=== PATIENT | female | born 1960 | race Caucasian/White ===

== ENCOUNTER 2016-11-13 11:56 | Outpatient (CLI) | payer MEDICARE, MEDICAID ==
[~2016-11-13] VITALS: Ht 167.6 cm; Wt 80.7 kg
[2016-11-13 12:09] VITALS: BP 163/97
[2016-11-13 12:44] LABS: BASOPHILS % (AUTO) 0 % (0-10); EOSINOPHILS % (AUTO) 0 % (0-10); LYMPHOCYTES # (AUTO) 2.3 X 10^3 (1.0-4.0); LYMPHOCYTES % (AUTO) 25 % (12-44); MEAN CORPUSCULAR HEMOGLOBIN 30 PG (25-34); MEAN CORPUSCULAR HGB CONC 34 G/DL (32-36); MEAN CORPUSCULAR VOLUME 90 FL (80-99); MEAN PLATELET VOLUME 10.7 FL (7.4-10.4); MONOCYTES # (AUTO) 0.5 X 10^3 (0.0-1.0); MONOCYTES % (AUTO) 5 % (0-12); NEUTROPHILS # (AUTO) 6.4 X 10^3 (1.8-7.8); NEUTROPHILS % (AUTO) 70 % (42-75); PLATELET COUNT 271 10^3/uL (130-400); RED BLOOD COUNT 4.44 10^6/uL (4.35-5.85); RED CELL DISTRIBUTION WIDTH 13.9 % (10.0-14.5); WHITE BLOOD COUNT 9.2 10^3/uL (4.3-11.0)
--- NOTE | 2016-11-13 12:52 | Diagnostic Imaging Report ---
PA and lateral views of the chest Indication: Preoperative evaluation Findings: The lungs are clear. The heart size is normal. There is no effusion or pneumothorax The mediastinum and [place] appear unremarkable. Impression: Unremarkable study. Dictated by: Dictated on workstation # [id number]
[2016-11-13 12:57] LABS: INR 0.9 (0.8-1.4); PROTHROMBIN TIME PATIENT 11.4 SEC (12.2-14.7)
[2016-11-13 13:02] LABS: BILIRUBIN,URINE NEGATIVE (NEGATIVE); KETONES,URINE NEGATIVE (NEGATIVE); LEUKOCYTE ESTERASE ,URINE 2+ (NEGATIVE); NITRITE,URINE NEGATIVE (NEGATIVE); PH,URINE 6 (5-9); PROTEIN,URINE 1+ (NEGATIVE); UROBILINOGEN,URINE NORMAL (NORMAL)
[2016-11-13 13:04] LABS: ANION GAP 12 MMOL/L (5-14); BLOOD UREA NITROGEN 14 MG/DL (7-18); BUN/CREATININE RATIO 17; CALCIUM 9.6 MG/DL (8.5-10.1); CARBON DIOXIDE 21 MMOL/L (21-32); CHLORIDE 105 MMOL/L (98-107); CREATININE SERUM 0.82 MG/DL (0.60-1.30); GFR ESTIMATED > 60; GLUCOSE 119 MG/DL (70-105); SODIUM 138 MMOL/L (135-145)
[2016-11-13] MEDS ORDERED: CETI10TA20 PO (13:53)
[2016-11-13] MEDS ORDERED: MULT-1021 PO (13:53)
[2016-11-13] MEDS ORDERED: SERT100T PO (13:53)
[2016-11-13] MEDS ORDERED: OMG1KC PO (13:53)
[2016-11-13] MEDS ORDERED: MELO7.5O PO (13:53)
[2016-11-13] MEDS ORDERED: ROSU40TA PO (13:53)
[2016-11-13] MEDS ORDERED: DICL100G18 TP (13:53)
[2016-11-13] MEDS ORDERED: ASPI-586 PO (13:53)
[2016-11-13] MEDS ORDERED: METO-333 PO (13:53)
== END 2016-11-13 12:50 | disposition home or self-care (01) ==
LOC: PREOP 11:56
PROVIDERS: ATTEND Orthopaedic Surgery
DX: Z01.811 Encounter for preprocedural respiratory examination (principal); Z01.812 Encounter for preprocedural laboratory examination; Z11.2 Encounter for screening for other bacterial diseases; M17.0 Bilateral primary osteoarthritis of knee; R53.83 Other fatigue
CPT/HCPCS: 36415; 71020; 80048; 81000; 85025; 85610; 86850; 86900; 86901; 87081

== ENCOUNTER 2016-11-26 05:53 | Inpatient (IN) | payer MEDICARE, MEDICAID ==
[~2016-11-26] VITALS: Ht 167.6 cm; Wt 80.7 kg
[~2016-11-26 05:53] MED LIST: ASPI-586 PO; CETI10TA20 PO; DICL100G18 TP; MELO7.5O PO; METO-333 PO; MULT-1021 PO; OMG1KC PO; ROSU40TA PO; SERT100T PO
--- OUTSIDE RECORDS SUMMARY | 2016-11-26 05:59 | XMS REPORT | Continuity of Care Document ---
Author Author [facility] Organization [facility] Address Unknown Phone Unavailable Care Team Providers Care Tools Developer Name Role Phone No Pcp, Na PCP Unavailable Source Comments Some departments are not documenting in the electronic medical record. If you do not see the information that you expected, contact Release of Information in the Health Information Management department at [phone] for further assistance in locating additional records.[facility] Active Allergies and Adverse Reactions Allergen Noted Date Severity Reactions Comments Codeine 01/31/2016 Low HEADACHE Current Medications Prescription Sig. Disp. Refills Start End Date Status Date aspirin EC 81 mg tablet Take 81 mg by mouth Active daily. sertraline (ZOLOFT) 100 Take 100 mg by mouth Active mg tablet daily. nitroglycerin (NITROSTAT) Place 0.4 mg under tongue Active 0.4 mg tablet every 5 minutes as needed for Chest Pain. omega 4-bwd-qae-fish oil Take 1 Cap by mouth Active 300-1,000 mg capsule daily. ALPRAZolam (XANAX) 1 mg Take 1 mg by mouth twice Active tablet daily. lidocaine 5 % gel Apply to affected area Active daily. ASCORBIC ACID PO Take by mouth daily. Active Indications: Vitamin C HYDROcodone/acetaminophen Take 1 Tab by mouth every Active (NORCO) 7.5/325 mg tablet 6 hours as needed for Pain MULTIVITAMIN WITH Take by mouth daily. Active MINERALS (MULTIVITAMIN & MINERAL FORMULA PO) cyanocobalamin(+) Take 100 mcg by mouth Active (VITAMIN B-12) 100 mcg daily. tablet metoprolol (LOPRESSOR) 25 Take 25 mg by mouth twice Active mg tablet daily. rosuvastatin (CRESTOR) 40 Take 40 mg by mouth Active mg tablet daily. MISCELLANEOUS MEDICAL Take by mouth daily. Active SUPPLY MISC Active Problems Problem Noted Date Primary localized osteoarthrosis, lower leg 05/22/2016 Coronary artery disease involving [place] coronary artery of [place] heart without angina pectoris Acquired genu varum 01/31/2016 Arthralgia of lower leg 01/31/2016 Social History Tobacco Use Types Packs/Day Years Used Date Never Smoker Smokeless Tobacco: Never Used Tobacco Cessation: Counseling Given: Yes Comments: Alcohol Use Drinks/Week oz/Week Comments No 0 Standard 0.0 drinks or equivalent Last Filed Vital Signs Vital Sign Reading Time Taken Blood Pressure 154/89 05/22/2016 3:36 PM CDT Pulse 87 05/22/2016 3:36 PM CDT Temperature - - Respiratory Rate - - Height 1.676 m (5' 6") 05/22/2016 3:36 PM CDT Weight 79.198 kg (174 lb 9.6 oz) 05/22/2016 3:36 PM CDT Body Mass Index 28.19 05/22/2016 3:36 PM CDT Oxygen Saturation - - Plan of Care Health Maintenance Due Date Last Done Comments Hepatitis C Screening 1958 Physical (Comprehensive) 1965 Exam Pertussis Vaccine 1969 Tetanus Vaccine 1975 Cervical Cancer Screening 1979 Breast Cancer Screening 1998 Colorectal Cancer 2008 Screening Influenza Vaccine 07/11/2016 Results from Last 3 Months Not on file
[2016-11-26] MEDS ORDERED: ceFAZolin 2 GM IV (SDC ONLY) 50 ML ONE (06:23)
[2016-11-26] MEDS ORDERED: GENTAMICIN 40 MG/ML 2 ML INJ SDV ONE (06:37)
[2016-11-26] MEDS ORDERED: CATHETER FLUSH 10 ML SYR IV PRN (06:45)
[2016-11-26] MEDS ORDERED: ceFAZolin 2GM/50 ML DEXTROSE (PREMIX) IV ONE (06:45)
[2016-11-26] MEDS ORDERED: FAMOTIDINE 20MG/2ML IV (PEPCID) IV ONE (06:45)
[2016-11-26] MEDS ORDERED: MIDAZOLAM 2 MG/2 ML (VERSED) VIAL ONE ×2 (06:49→08:00)
[2016-11-26] MEDS ORDERED: ROPIVACAINE 5MG/ML 30ML VIAL ONE (06:49)
[2016-11-26] MEDS ORDERED: NEO/POLY/BAC (NEOSPORIN) OINT 15 GM TUBE ONE (06:50)
[2016-11-26] MEDS: LACTATED RINGERS 1,000 ML IV PRN ×3 (06:52→10:15)
[2016-11-26] MEDS ORDERED: proPOfol 200 MG/20 ML (DIPRIVAN) VIAL IV ONE (06:54)
[2016-11-26] MEDS ORDERED: fentaNYL INJECTION 100 MCG/2 ML AMP ONE ×3 (06:54→08:45)
[2016-11-26] MEDS ORDERED: LACTATED RINGERS 1,000 ML IV ONE ×3 (06:54→09:45)
[2016-11-26] MEDS ORDERED: ROCURONIUM 50 MG/5 ML (ZEMURON) VIAL IV ONE (06:54)
[2016-11-26] MEDS ORDERED: ONDANSETRON 4 MG/2 ML (SDV) Z0FRAN ONE (06:54)
[2016-11-26] MEDS ORDERED: SEVOFLURANE (ULTANE) 15 ML INHAL SOLN ONE ×6 (06:54→10:23)
[2016-11-26] MEDS ORDERED: LIDOCAINE PF 2% 10 ML (XYLOCAINE) AMP ONE (06:54)
[2016-11-26 07:43] VITALS: BP 133/77
[2016-11-26] MEDS ORDERED: TXA MC ONE ×5 (07:45)
[2016-11-26] MEDS ORDERED: INTRA ARTICULAR MC ONE ×5 (07:45)
[2016-11-26] MEDS ORDERED: diphenhydrAMINE 50 MG/ML INJ (BENADRYL) IV PRN (08:00)
[2016-11-26] MEDS ORDERED: PROMETHAZINE INJ 25 MG/ML (PHENERGAN) AMP IVP PRN ×2 (08:00)
[2016-11-26] MEDS ORDERED: BISACODYL 10 MG SUPP (DULCOLAX) PR PRN (08:00)
[2016-11-26] MEDS ORDERED: ceFAZolin INJECTION 2,000 MG in NORMAL SALINE (BAXTER MINI) 50 ML IV SCH (08:00)
[2016-11-26] MEDS ORDERED: D5 1/2 NS 1000 ML IV SOLUTION 1,000 ML IV SCH (08:00)
--- NOTE | 2016-11-26 08:07 | Progress Note-Pre Operative ---
Pre-Operative Progress Note H&P Reviewed The H&P was reviewed, patient examined and no changes noted. Date H&P Reviewed: Nov 26, 2016 Time H&P Reviewed: 08:00 Pre-Operative Diagnosis: Primary Osteoarthritis Left Knee OSMAR MARTINES APRN Nov 26, 2016 8:07 am
[2016-11-26] MEDS ORDERED: DEXAMETHASONE PF 10 MG/ML (DECADRON) VIAL ONE (09:45)
[2016-11-26] MEDS ORDERED: LABETALOL HCL 20 MG/4 ML VIAL ONE (09:45)
[2016-11-26] MEDS: morphine INJ 10 MG/ML 1ML (SYR OR VIAL) IV PRN ×2 (11:00→11:08)
[2016-11-26] MEDS ORDERED: HYDROmorphone (DILAUDID) 2 MG/ML VIAL IV PRN (11:00)
[2016-11-26] MEDS ORDERED: ONDANSETRON 4 MG/2 ML (SDV) Z0FRAN IV ONE (11:00)
[2016-11-26] MEDS ORDERED: fentaNYL INJECTION 100 MCG/2 ML AMP IV PRN (11:00)
--- NOTE | 2016-11-26 11:27 | Diagnostic Imaging Report ---
INDICATION: Osteoarthritis. FINDINGS: There are postsurgical changes of a total knee arthroplasty. Alignment is normal. Surgical drains remain in place. No fracture or loosening of the installed hardware is identified. IMPRESSION: Postsurgical changes of knee arthroplasty, as described above. Dictated by: Dictated on workstation # [id number]
[2016-11-26 11:45] VITALS: BP 135/84
[2016-11-26] MEDS: morphine INJ 10 MG/ML 1ML (SYR OR VIAL) IVP PRN ×2 (12:08→13:52)
[2016-11-26] MEDS: HYDROcodone/APAP 10 MG/325 MG (LORTAB) TAB PO PRN ×3 (12:08→22:55)
--- NOTE | 2016-11-26 13:05 | Progress Note-Post Operative ---
Post-Operative Progess Note Curriculum Consultant Moses Martines, ILAC, OFFICE ASSOCIATE Pre-Operative Diagnosis Primary Osteoarthritis Left Knee Post-Operative Diagnosis same Post-Op Procedure Note Date of Procedure: Nov 26, 2016 Name of Procedure: L TKA Procedure Note/Findings 31 thin patella 67 Tibia 13mm 65 femur Anesthesia Type general with femoral block Estimated blood loss (mL): 200 MOSES MARTINES APRN Nov 26, 2016 1:05 pm
[2016-11-26] MEDS: ASPIRIN E.C. 325 MG (ECOTRIN) TABLET PO SCH (13:38)
[2016-11-26] MEDS: ENOXAPARIN 40 MG/0.4 ML (LOVENOX) SYR SC SCH (13:39)
[2016-11-26] MEDS: KETOROLAC 30 MG/ML VIAL IVP PRN (13:52)
[2016-11-26] MEDS: D5 1/2 NS 1000 ML IV SOLUTION 1,000 ML IV SCH (13:58)
[2016-11-26] MEDS ORDERED: ceFAZolin 2GM/50 ML DEXTROSE (PREMIX) IV SCH (14:00)
[2016-11-26] MEDS: [UNRECOGNIZED DRUG - OTHER] IV SCH ×4 (14:34→22:46)
[2016-11-26] MEDS: CEFAZOLIN IV SCH ×4 (14:34→22:46)
[2016-11-26] MEDS ORDERED: MUPI22OI2 (14:39)
[2016-11-26] MEDS ORDERED: FLU TRIvalent (5 YOA+) 2016-17 (AFLURIA) 0.5 ML IM ONE (15:15)
[2016-11-26 17:35] VITALS: BP 110/71
[2016-11-26] MEDS: ONDANSETRON 4 MG/2 ML (SDV) Z0FRAN IVP PRN (19:37)
[2016-11-26] MEDS: meTOprolol TARTRATE 25 MG (LOPRESSOR) TABLET PO SCH (20:04)
[2016-11-26 20:20] VITALS: BP 103/67
[2016-11-27] VITALS: BP 123/62
[2016-11-27] MEDS: ONDANSETRON 4 MG/2 ML (SDV) Z0FRAN IVP PRN (02:23)
[2016-11-27] MEDS: D5 1/2 NS 1000 ML IV SOLUTION 1,000 ML IV SCH ×2 (02:30→03:40)
[2016-11-27] MEDS: HYDROcodone/APAP 10 MG/325 MG (LORTAB) TAB PO PRN ×4 (03:36→23:27)
[2016-11-27 04:00] VITALS: BP 118/60
[2016-11-27 05:04] LABS: MEAN PLATELET VOLUME 10.2 FL (7.4-10.4); RED BLOOD COUNT 3.39 10^6/uL (4.35-5.85); RED CELL DISTRIBUTION WIDTH 13.9 % (10.0-14.5); WHITE BLOOD COUNT 14.1 10^3/uL (4.3-11.0)
[2016-11-27 05:35] LABS: ANION GAP 10 MMOL/L (5-14); BLOOD UREA NITROGEN 17 MG/DL (7-18); BUN/CREATININE RATIO 23; CALCIUM 8.8 MG/DL (8.5-10.1); CARBON DIOXIDE 24 MMOL/L (21-32); CHLORIDE 104 MMOL/L (98-107); CREATININE SERUM 0.73 MG/DL (0.60-1.30); GFR ESTIMATED > 60; GLUCOSE 111 MG/DL (70-105); POTASSIUM 4.3 MMOL/L (3.6-5.0); SODIUM 138 MMOL/L (135-145)
[2016-11-27] MEDS: KETOROLAC 30 MG/ML VIAL IVP PRN (06:36)
[2016-11-27 08:00] VITALS: BP 126/73
--- NOTE | 2016-11-27 08:10 | Progress Note (SOAP) ---
Subjective Subjective/Events-last exam POD #1, s/p left TKA, she is doing well, no complaints, pain controlled, happy with progress Objective Exam Vital Signs Date Time Temp Pulse Resp B/P Pulse Ox O2 Delivery O2 Flow Rate FiO2 11/27/16 04:00 98.9 80 18 118/60 95 Room Air 11/27/16 00:00 98.7 92 14 123/62 96 Room Air 11/26/16 20:20 98.8 104 20 103/67 96 Room Air 11/26/16 17:35 98.0 104 20 110/71 92 Room Air 11/26/16 13:56 99 Nasal Cannula 3.00 11/26/16 11:45 98.7 100 16 135/84 94 Nasal Cannula 3.00 I & O 11/27/16 06:59 Intake Total 4910 ml Output Total 6245 ml Balance -1335 ml Capillary Refill : General Appearance: No Apparent Distress Extremity: Normal Capillary Refill Normal Inspection No Calf Tenderness Neurologic/Psychiatric: Alert Oriented x3 No Motor/Sensory Deficits Normal Mood/Affect Skin: Normal Color Warm/Dry (dressing left knee CDI) Results Lab Laboratory Tests 11/27/16 04:04: Anion Gap 10, BUN/Creatinine Ratio 23, Blood Urea Nitrogen 17, Calcium Level 8.8 , Carbon Dioxide Level 24, Chloride Level 104, Creatinine 0.73, Estimat Glomerular Filtration Rate > 60, Glucose Level 111H, Potassium Level 4.3, Sodium Level 138 11/27/16 04:54: Hematocrit 32L, Hemoglobin 10.3L, Mean Corpuscular Hemoglobin 30, Mean Corpuscular Hemoglobin Concent 33, Mean Corpuscular Volume 93, Mean Platelet Volume 10.2, Platelet Count 243, Red Blood Count 3.39L, Red Cell Distribution Width 13.9, White Blood Count 14.1H Assessment/Plan Assessment/Plan Assess & Plan/Chief Complaint A: S/p left TKA P: Cont current treatment, start physical therapy today and CPM, plan to DC to home tomorrow or friday with home healthcare physical therapy Diagnosis/Problems: Clinical Quality Measures DVT/VTE Risk/Contraindication: Risk Factor Score Per Nursin RFS Level Per Nursing on Admit: 4+=Very High OSMAR MARTINES APRN Nov 27, 2016 8:09 am
[2016-11-27] MEDS: SERTRALINE 100 MG (ZOLOFT) TAB PO SCH (08:46)
[2016-11-27] MEDS: meTOprolol TARTRATE 25 MG (LOPRESSOR) TABLET PO SCH ×2 (08:46→20:00)
[2016-11-27] MEDS: ENOXAPARIN 40 MG/0.4 ML (LOVENOX) SYR SC SCH (08:46)
[2016-11-27] MEDS: ASPIRIN E.C. 325 MG (ECOTRIN) TABLET PO SCH (08:47)
[2016-11-27] MEDS: SENNA W/DOCUSATE (SENOKOT S) TABLET PO SCH ×2 (08:47→20:00)
--- NOTE | 2016-11-27 10:46 | Anesthesia-General Post-Op ---
General Patient Condition Mental Status/LOC: Same as Preop Cardiovascular: Satisfactory Nausea/Vomiting: Absent Respiratory: Satisfactory Pain: Controlled Complications: Absent Post Op Complications Complications None Follow Up Care/Instructions Patient Instructions None needed. Anesthesia/Patient Condition Patient Condition Patient is doing well, no complaints, stable vital signs, no apparent adverse anesthesia problems. No complications reported per nursing. PRITI NICHOLS CRNA Nov 27, 2016 10:46
--- NOTE | 2016-11-27 10:50 | Physical Therapy Evaluation ---
PT Evaluation-General Medical Diagnosis Admission Date Nov 26, 2016 at 05:53 Medical Diagnosis: OA left knee Onset Date: Nov 26, 2016 Therapy Diagnosis Therapy Diagnosis: weakness; abn gait Height/Weight Height (Feet): 5 Height (Inches): 6.00 Weight (Pounds): 178 Weight (Ounces): 0.0 Precautions Precautions/Isolations: Standard Precautions Weight Bear Status Weight Bearing Restriction: Weight Bearing/Tolerated Location Restriction: L LE Referral Physician: Jennifer Reason for Referral: Evaluation/Treatment Medical History Pertinent Medical History: OA Additional Medical History None noted in chart at this time. Current History Elective left TKA. Reviewed History: Yes Social History Home: Single Level Current Living Status: Other Family (son) Entry Into Home: Level Entry Prior/Core FIM Prior Level of Function Functional [place] Measure 0=Not Assessed/NA 4=Minimal Assistance 1=Total Assistance 5=Supervision or Setup 2=Maximal Assistance 6=Modified [place] 3=Moderate Assistance 7=Complete [place] Bed Mobility: 7 Transfers (B,C,W/C) (FIM): 7 Gait: 7 indep at home with but knee pain. PT Evaluation-Current Subjective Pt reports she is on disability due to knee OA. Agrees to PT. Reports she feels good. Pain Numeric Pain Scale: 2 Location: Left Location Body Site: Knee Pain Description: Ache (sore) Pt/Family Goals Pt would like to discharge home tomorrow or friday Objective Patient Orientation: Person, Place, Time, Situation Problem Solving: Fair ROM/Strength ROM Lower Extremities Righ LE WFL; left LE is WFL except knee is 0-5-60 degrees Strenght Lower Extremities Right LE is WFL; left LE is grossly 4-/5 throughout. Integumentary/Posture Integumentary intact Bowel Incontinence: No Bladder Incontinence: No Posture normal, symmetrical Neuromuscular (Tone, Coordination, Reflexes) intact and functional Sensory Vision: Functional Hearing: Functional Hand Dominance: Right Sensation Right Lower Extremit: Intact Sensation Left Lower Extremity: Intact Transfers Functional [place] Measure 0=Not Assessed/NA 4=Minimal Assistance 1=Total Assistance 5=Supervision or Setup 2=Maximal Assistance 6=Modified [place] 3=Moderate Assistance 7=Complete [place] Transfers (B, C, W/C) (FIM): 5 Supine to/from Sit: 5 Sit to/from Stand: 5 SBA with all functional mobility. Pt got up and stood without assist but with some disregard for safety. Gait Mode of Locomotion: Walk Anticipated Mode of Locomotion: Walk Gait (FIM): 5 Distance (FIM): 3=150 ft Gait Assistive Device: FWW Comments/Gait Description Tends to walk on her toes on the left and keep knee in flexed position. Gait is antalgic due to gait pattern. Walks fast and tends to lift walker up. Balance Sitting Static: Good Sitting Dynamic: Good Standing Static: Fair Standing Dynamic: Fair Treatment left LE ther ex for AP, QS, Heel slides and SAQ all x 10 each; CPM applied 0-64 degrees. Educated on use of CPM . Assessment/Needs Post elective TKR with SBA for functional mobility with slight safety concerns. Pt is moving very well today and with very little pain. She will benefit from skilled PT for functional mobility and safety as well as ROM and strengthening. Rehab Potential: Good PT Patient Registrar Goals Shelter Goals PT Shelter Goals Time Frame: Dec 02, 2016 Transfers (B,C,W/C) (FIM): 6 Gait (FIM): 6 Gait Assistive Device: FWW Stairs (FIM): 5 PT Plan Problem List Problem List: Activity Tolerance, Functional Strength, Safety, Balance, Gait, Transfer, Bed Mobility, ROM Treatment/Plan Treatment Plan: Continue Plan of Care Treatment Plan: Bed Mobility, Education, Functional Activity Jasmeet, Functional Strength, Gait, Safety, Therapeutic Exercise, Transfers Treatment Duration: Dec 02, 2016 # of days/week 5-6 Visits Per Week: 11 Pt/Family Agrees w/Plan: Yes Safety Risks/Education Patient Education: Transfer Techniques, Safety Issues Teaching Recipient: Patient Teaching Methods: Discussion Response to Teaching: Verbalize Understanding Discharge Recommendations Plan TKA protocol Therapy D/C Recommendations: Physical Therapy Home Care Time/GCodes Time In: 930 Time Out: 1005 Total Billed Treatment Time: 35 Total Billed Treatment visit EVLow 15 FA 20 ANNETTE WILLIAMSON PT Nov 27, 2016 10:50
--- NOTE | 2016-11-27 11:56 | OPERATIVE REPORT ---
PROCEDURE PHYSICIAN: AUSTEN FRANCOIS DATE OF PROCEDURE: 11/26/2016 PREOPERATIVE DIAGNOSIS: Primary osteoarthritis, left knee. POSTOPERATIVE DIAGNOSIS: Primary osteoarthritis, left knee. PROCEDURE: Left total knee arthroplasty. SURGEON: Jennifer STEELE ASSIST: LUIGI Reyes custody assistant duties: Moses Robledo pharmacy technician assistant was utilized throughout the entire procedure for soft tissue retraction, placement of implants, wound closure and patient transfer. ANESTHESIA: General. INDICATIONS: The patient is a 56-year-old female seen with chief complaint of progressive pain in the left and right knee. The patient developed a varus deformity that was no longer responding to conservative treatment. The patient was taken to surgery where a total knee arthroplasty was performed on the left without complication utilizing the Biomet Vidappguard total knee system with a 62.5 mm press-fit femoral component, a 67 mm fixed I-beam tibial baseplate cemented into position with a 31 mm three-pronged all polyethylene cemented thin patella. A 13 mm anterior stabilized tibial bearing implant was utilized. Palacos bone cement with gentamicin was utilized. PROCEDURE IN DETAIL: The patient was transferred to the operating room, placed supine upon the operating table and general inhalation anesthetic was administered. A well-padded pneumatic tourniquet was placed about the upper aspect of the left thigh. A ChloraPrep and sterile drape of the left lower extremity was performed. The left leg was elevated, exsanguinated, and the tourniquet was inflated to 300 mmHg pressure. An anterior longitudinal midline incision was made over the anterior surface of the left knee. The incision was deepened through medial parapatellar incision. The patella was subluxed laterally. Hypertrophic osteophyte formation from the distal femur was reamed with a bone rongeur. A ferry pilot hole then drilled in the distal femur and intramedullary javad was inserted utilizing a 6 degrees valgus cutting angle, a distal femoral cutting guide was assembled and distal femoral osteotomy was completed. The distal femur was sized to a 62.5 mm femoral component. A four-way cutting guide was assembled. Anterior, posterior and chamfer cuts of the distal femur were made. The tibia was then subluxed anteriorly. Remnants of the medial lateral menisci were excised. A ferry pilot hole then drilled in the proximal tibia and intramedullary javad was inserted measuring off the proximal medial tibia. A proximal tibial cutting guide was assembled and a proximal tibial osteotomy was completed. An additional soft tissue dissection was performed over the proximal medial tibia. The patient's knee demonstrated incomplete extension with a 10 mm spacer and therefore the cutting guide was reassembled anteriorly and additional proximal tibia was removed through the cutting guide. The knee could then be fully extended. In flexion the patient demonstrated to have persistent instability therefore, the cutting guide was reassembled. An additional millimeter bone was removed from the distal femur. The four-way cutting guide was assembled. Additional bone was resected from the chamfer cuts. The knee was then flexed and extended with the provisional spacer and stability was noted in both in flexion and extension. Osteophytes were removed from the rim of the patella. The patella was sized to a 31 mm component. The posterior aspect of the patella was resected through a cutting guide and drilled through a drill guide. Provisional components were inserted. The knee was cycled through a range of motion. Rotation of the tibial component was noted marked on the proximal tibia. The proximal tibia was then broached to accept the I-beam stem portion of the component. The bony surfaces were irrigated extensively with normal saline solution. Palacos bone cement was then mixed in a mixing vacuum container; using a cement gun the cement was pressurized in the proximal tibia. The tibial component was cemented in place. The femoral component was press-fit in place. The knee was taken into full extension with the provisional tibial bearing implant. The patellar component was cemented into place and held in place with a clamp. Excessive cement was removed. The cement was allowed to set. The provisional tibial bearing implant was removed. Excessive cement was removed from the proximal tibia. The knee was additionally irrigated with normal saline solution. The 13 mm anterior stabilized tibial bearing implant was then inserted and locked anteriorly with a locking bar. The knee was cycled through a range of motion with full extension obtained and no instability on mid range flexion and full flexion of the knee on drawer testing. The tourniquet was released. Hemostasis was obtained with electrocautery. The knee was placed in 98 degrees of flexion. The medial retinaculum was closed with multiple interrupted [id number] sutures of number 1 Vicryl reinforced with a running suture of number 1 Strata fix. The subcutaneous tissues were closed in layers with 0 and 2-0 Vicryl suture. The knee was infiltrated with combination of ropivacaine, Marcaine, Toradol and tranexamic acid. The skin was closed with stainless steel glenn. An Adaptic Neosporin bulky dressing was placed about the left knee. The patient was awakened and was transported postop recovery with anesthesia personnel present in satisfactory condition. Job ID: [id number] Dictated Date: 11/26/2016 14:26:42 Java Developer With Security Clearance Date: 11/27/2016 11:46:18 / le
[2016-11-27 12:00] VITALS: BP 137/75
--- NOTE | 2016-11-27 13:46 | Physical Therapy Daily Note ---
PT Daily Note-Current Subjective PT reports 6/10 pain in (L) knee. Pt states "Yesterday I was bouncing around here but today I think it is catching up to me." Pt reports she is tired today. Mental Status Patient Orientation: Person, Place, Situation Transfers Functional [place] Measure 0=Not Assessed/NA 4=Minimal Assistance 1=Total Assistance 5=Supervision or Setup 2=Maximal Assistance 6=Modified [place] 3=Moderate Assistance 7=Complete IndependenceIRFPAI Quality Coding Scale 6 Independent with activity with or without an assistive device 5 Patient requires set up or clean up by helper. Patient completes activity by themselves 4 Supervision or touching assist (CGA). [place] provide cues , steadying assist 3 The helper provides less than half the effort to complete the activity 2 The helper provides more than half the effort to complete the activity 1 Dependent. The helper does all the effort to complete an activity 7 Patient refused to complete or attempt activity 9 The patient did not perform the activity before the current illness or injury 88 Not attempted due to Medical conditions or safety concerns Pt performs transfers in/out of bed and uses BR (toilet transfers) with ease, no Assist needed. Pt demonstrating mod (I) with functional mobility. Gait Training Gait Assistive Device: FWW Pt amb with FWW and SBA, good speed. Pt ambulates with knee slightly flexed weight on toe. Pt able to improve gait pattern with vc's. Exercises Supine Ex: LE Protocol Supine Reps: 20 Treatments Pt seen for strengthening, gait training and CPM. CPM 0-64deg at this time (pt limit). Assessment Current Status: Good Progress Pt demonstrates excellent functional mobility. Pt demonstrates (I) SLR. Knee flexion and ext limited by pain. Pt educated on correct positioning and gait pattern and verbalized understanding. Pt back to bed with CPM and cryotherapy in place. Pt with call light in reach and all needs met. PT Short Term Goals Short Term Goals Time Frame: Nov 27, 2016 PT Final Coat Sprayer Goals Final Coat Sprayer Goals PT Senior Living Goals Time Frame: Dec 02, 2016 Transfers (B,C,W/C) (FIM): 6 Gait (FIM): 6 Gait Assistive Device: FWW Stairs (FIM): 5 PT Plan Treatment/Plan Treatment Plan: Continue Plan of Care Treatment Plan: Bed Mobility, Education, Functional Activity Jasmeet, Functional Strength, Gait, Safety, Therapeutic Exercise, Transfers Treatment Duration: Dec 02, 2016 Visits Per Week: 11 Time/GCodes Time In: 1315 Time Out: 1340 Total Billed Treatment Time: 25 Total Billed Treatment 1,gait x 10min, ther ex 15 min JOVANA BUSCH CPTA Nov 27, 2016 13:46
[2016-11-27] MEDS: morphine INJ 4 MG/ML 1 ML (VIAL/SYRINGE) IV PRN ×2 (14:16→20:01)
--- NOTE | 2016-11-27 14:22 | Occ Therapy Progress Note ---
Therapy Progress Note OT order received. Chart reviewed. Pt. in bed with CPM on. States that she feels great. Has no pain. States that she dressed herself already, and has been taking self to bathroom. Pt. states that she has to use toilet while OT in room. Pt. able to remove her ice, SCDs, and remove leg off CPM. Ambulated to bathroom and transferred with no difficulty. Spoke with nursing. States that she has been up ad yolanda in room. No deficits noted. No OT needs at this time. 1, visit discharge from OT services 1420 KIRA MATOS OT Nov 27, 2016 14:22
[2016-11-27 16:45] VITALS: BP 147/73
[2016-11-27 20:00] VITALS: BP 136/74
[2016-11-28] VITALS: BP 135/80
[2016-11-28] MEDS: HYDROcodone/APAP 10 MG/325 MG (LORTAB) TAB PO PRN ×2 (03:59→08:39)
[2016-11-28] MEDS: morphine INJ 4 MG/ML 1 ML (VIAL/SYRINGE) IV PRN (05:49)
[2016-11-28 06:02] LABS: MEAN PLATELET VOLUME 10.5 FL (7.4-10.4); RED BLOOD COUNT 3.2 10^6/uL (4.35-5.85); RED CELL DISTRIBUTION WIDTH 13.7 % (10.0-14.5); WHITE BLOOD COUNT 10.8 10^3/uL (4.3-11.0)
[2016-11-28 06:28] LABS: ANION GAP 11 MMOL/L (5-14); BLOOD UREA NITROGEN 17 MG/DL (7-18); BUN/CREATININE RATIO 25; CARBON DIOXIDE 23 MMOL/L (21-32); CHLORIDE 103 MMOL/L (98-107); CREATININE SERUM 0.69 MG/DL (0.60-1.30); GFR ESTIMATED > 60; GLUCOSE 108 MG/DL (70-105); POTASSIUM 4.1 MMOL/L (3.6-5.0); SODIUM 137 MMOL/L (135-145)
--- NOTE | 2016-11-28 07:04 | Progress Note (SOAP) ---
Subjective Subjective/Events-last exam s/p left TKA POD #2, no complaints, pain controlled, she is happy with progress and feels she is ready for DC to home. Objective Exam Vital Signs Date Time Temp Pulse Resp B/P Pulse Ox O2 Delivery O2 Flow Rate FiO2 11/28/16 00:00 99.8 84 20 135/80 92 Room Air 11/27/16 20:00 99.7 90 20 136/74 94 Room Air 11/27/16 20:00 Room Air 11/27/16 16:45 99.0 86 20 147/73 94 Room Air 11/27/16 12:00 99.1 79 20 137/75 92 Room Air 11/27/16 09:00 Room Air 11/27/16 08:00 98.2 82 126/73 98 Room Air I & O 11/28/16 07:00 Intake Total 1790 ml Output Total 850 ml Balance 940 ml Capillary Refill : Less Than 3 Seconds General Appearance: No Apparent Distress Respiratory: No Accessory Muscle Use Cardiovascular: Normal Peripheral Pulses Gastrointestinal: non tender soft Extremity: Normal Capillary Refill Normal Inspection Non Tender No Calf Tenderness No Pedal Edema Neurologic/Psychiatric: Alert Oriented x3 No Motor/Sensory Deficits Normal Mood/Affect Skin: Normal Color Warm/Dry (Dressing left TKA is CDI) Results Lab Laboratory Tests 11/28/16 05:30: Anion Gap 11, BUN/Creatinine Ratio 25, Blood Urea Nitrogen 17, Calcium Level 9.0 , Carbon Dioxide Level 23, Chloride Level 103, Creatinine 0.69, Estimat Glomerular Filtration Rate > 60, Glucose Level 108H, Hematocrit 30L, Hemoglobin 9.7L, Mean Corpuscular Hemoglobin 30, Mean Corpuscular Hemoglobin Concent 33, Mean Corpuscular Volume 93, Mean Platelet Volume 10.5H, Platelet Count 213, Potassium Level 4.1, Red Blood Count 3.20L, Red Cell Distribution Width 13.7, Sodium Level 137, White Blood Count 10.8 Assessment/Plan Assessment/Plan Assess & Plan/Chief Complaint A: S/p left TKA P: DC to home with HHC today Diagnosis/Problems: Clinical Quality Measures DVT/VTE Risk/Contraindication: Risk Factor Score Per Nursin RFS Level Per Nursing on Admit: 4+=Very High OSMAR MARTINES APRN Nov 28, 2016 7:04 am
--- NOTE | 2016-11-28 07:14 | Discharge Inst-Home Health ---
Discharge Inst-to Home Health Patient Instructions Patient Instructions/FollowUp: Refer to Dr. Jennifer ISAAC instructions for TKA Patient Problems: Primary OA left knee S/P left TKA Goal: independence with ADLs [place] DISCHARGE ORDERS Allergies: Coded Allergies: codeine (Verified Allergy, Unknown, headache, 11/13/16) Height (Feet): 5 Height (Inches): 6.00 Weight (Pounds): 178 Weight (Ounces): 0.0 Home Health Need/Face to Face Reason Pt Homebound unable to ambulate without assistive device, unable to ambulate over 200ft, unable to drive I Have Seen Pt [id number]: Yes Date of Face to Face: Nov 28, 2016 Discharged To: Home Diagnosis/Conditions HH Order: Primary OA left knee S/P left TKA Physical therapy 5x/week x 2 weeks Nursing to remove glenn and apply steri strips on POD #10 Consult/Follow Up/New Order *I certify that based on my findings, the following services are medically necessary Home Health Services: Services: Nursing Services, Physical Therapy-Evaluate & Treat My clinical findings support the need for the above services; see Diagnosis. [facility] Orders physical therapy 5x/week x 2 weeks to assist with ROM, gait and strengthening s/ p left TKA nursing to remove glenn and apply steri strips on POD 10 daily island dressing changes continue mikey hose continue cpm continue WBAT with walker Clinical Findings s/p left TKA Other Equipment Needed: front wheeled walker Dicharge Diet: No Restrictions Daily Activity as Tolerated: Yes Discharge Medications: New, Converted, or Re-newed RX: RX on Chart I certify that this patient is under my care and that I, a nurse practitioner or a physician; a parking assistant working with me, had a face to face encounter that - meets the physician face to face encounter requirements with this patient as dated. OSMAR MARTINES APRN Nov 28, 2016 7:14 am
[2016-11-28] MEDS ORDERED: ASPI325T32 PO (07:17)
[2016-11-28] MEDS ORDERED: HYDR-3820 PO (07:17)
[2016-11-28] MEDS ORDERED: SENN-20 PO (07:17)
[2016-11-28 08:00] VITALS: BP 120/65
[2016-11-28] MEDS: ASPIRIN E.C. 325 MG (ECOTRIN) TABLET PO SCH (08:38)
[2016-11-28] MEDS: SENNA W/DOCUSATE (SENOKOT S) TABLET PO SCH (08:39)
[2016-11-28] MEDS: ENOXAPARIN 40 MG/0.4 ML (LOVENOX) SYR SC SCH (08:39)
[2016-11-28] MEDS: meTOprolol TARTRATE 25 MG (LOPRESSOR) TABLET PO SCH (08:39)
[2016-11-28] MEDS: SERTRALINE 100 MG (ZOLOFT) TAB PO SCH (08:39)
--- NOTE | 2016-11-28 13:28 | Physical Therapy Progress Note ---
Therapy Progress Note Pt refused tx this morning due to discharging in a little while. PT asked if pt needed anything or needed education on what she needs when she goes home. Pt reports will use polar pack, elevation and NSAID when needed as well as she will have her son to assist at home. Pt was left with all needs met at end of tx. 1 visit ANAYELI GONZALEZ PTA Nov 28, 2016 13:28
--- NOTE | 2016-11-29 09:51 | DISCHARGE SUMMARY ---
DATE OF ADMISSION: 11/26/2016 DATE OF DISCHARGE: 11/28/2016 SUPERVISING PHYSICIAN: Dr. Ajith Rodriguez D.O. ADMITTING DIAGNOSIS: Primary osteoarthritis, left knee. DISCHARGE DIAGNOSES: 1. Primary osteoarthritis, left knee. 2. Status post left total knee arthroplasty. PROCEDURES: A left total knee arthroplasty on 11/26/2016. HISTORY AND HOSPITAL COURSE: The patient was seen in the clinic setting and failed conservative treatment for primary osteoarthritis of the left knee. On the date of admission the patient was taken to the operating room where a left total knee arthroplasty was performed under general anesthesia without complication. Postoperatively, the patient was maintained on deep vein thrombosis prophylaxis as well as IV antibiotic prophylaxis. On postoperative day number 1, the patient was doing well. She had no complaints or concerns. Her vital signs were stable and she was afebrile. Her exam was unremarkable regarding her left lower extremity. The patient's labs were all stable with hemoglobin of 10.3. The patient's dressing changes, as well as physical therapy was initiated on postop day 1. On postop day 2, the patient was once again doing very well. She had ambulated over 200 feet with physical therapy and needed only minimal assistance. She was using a walker. Her pain was controlled with oral pain medication at that time. The patient was eating and drinking well. She has not had any fever. Her vital signs were stable. On examination the patient's left lower extremity was neurovascularly intact. She had a 2+ pedal pulse. She had a negative Homans sign. The dressing about the left knee was clean, dry and intact. The patient's hemoglobin was stable at 9.7. The patient was discharged to home on postoperative day number 2 with home health care. Discharge instructions were reviewed with the patient by myself as well as nursing staff and she verbalized understanding. She was also given instructions in the printed format. DISPOSITION: Discharged to home with home health care. DISCHARGE INSTRUCTIONS: 1. Home health care physical therapy 5 times a week for 2 weeks to assist with ambulation and treat range of motion. 2. Home health care nursing to remove the glenn and apply Steri-Strips in 10 days. 3. She is going to continue weight-bearing as tolerated using a walker for assistance. 4. She is going to continue the CPM machine. 5. She is going to continue the MEHDI hose. 6. She is going to continue with the Polar Care unit. 7. She may remove her dressing. She may shower washing directly over the incision. She is then to replace with a new [place] dressing daily. 8. The patient is going to continue her current home medication. 9. The patient is going to resume her regular diet. DISCHARGE PRESCRIPTIONS: 1. Aspirin 325 mg enteric-coated 1 p.o. daily number 60 with 0 refills. 2. [place] 10/325, 1 p.o. q.4-6 h. p.r.n. pain, number 90 with 0 refills. 3. Senokot 1 p.o. b.i.d. number 60 with 0 refills. Job ID: [id number] Dictated Date: 11/28/2016 07:26:00 Regional Construction Manager Date: 11/29/2016 09:43:29/barrera
== END 2016-11-28 11:24 | disposition home health service (06) | DRG 470 ==
LOC: SURGICAL 05:53 → SURG 05:54 → 4TH 12:17
PROVIDERS: ADMIT Orthopaedic Surgery; ATTEND Orthopaedic Surgery
PROC: 0SRD0J9 Replacement of Left Knee Joint with Synthetic Substitute, Cemented, Open Approach (ICD-10-PCS; principal; 2016-11-26 08:02)
DX: M17.12 Unilateral primary osteoarthritis, left knee (principal); F41.9 Anxiety disorder, unspecified; F32.9 Major depressive disorder, single episode, unspecified; F17.210 Nicotine dependence, cigarettes, uncomplicated; I25.2 Old myocardial infarction
CPT/HCPCS: 36415; 73560; 80048; 85027; 94664; 94760

== ENCOUNTER 2017-01-09 10:41 | Outpatient (RCR) | payer MEDICARE, MEDICAID ==
--- OUTSIDE RECORDS SUMMARY | 2016-12-13 09:51 | XMS REPORT | Continuity of Care Document ---
Author Author [facility] Organization [facility] Address Unknown Phone Unavailable Care Team Providers Care Tetryl Blender Operator Name Role Phone No Pcp, Na PCP Unavailable Source Comments Some departments are not documenting in the electronic medical record. If you do not see the information that you expected, contact Release of Information in the Health Information Management department at [phone] for further assistance in locating additional records.[facility] Active Allergies and Adverse Reactions Allergen [...] minutes as needed for Chest Pain. 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
[~2017-01-09 10:41] MED LIST changes: +ASPI325T32 PO; +HYDR-3820 PO; +MUPI22OI2; +SENN-20 PO
== END 2017-01-22 14:37 | disposition home or self-care (01) ==
PROVIDERS: ATTEND Orthopaedic Surgery
DX: Z47.1 Aftercare following joint replacement surgery (principal); Z96.652 Presence of left artificial knee joint

== ENCOUNTER 2017-08-16 | Emergency (ER) | payer MEDICARE, MEDICAID ==
[~2017-08-16] VITALS: Ht 167.6 cm; Wt 80.7 kg
[2017-08-16 00:08] VITALS: BP 156/94
--- OUTSIDE RECORDS SUMMARY | 2017-08-16 00:08 | XMS REPORT | Clinical Summary ---
Author Author [facility] Organization [facility] Address Unknown Phone Unavailable Care Team Providers Care Cupola Operator Insulation Name Role Phone PCP Unavailable Source Comments Some departments are not documenting in the electronic medical record. If you do not see the information that you expected, contact Release of Information in the Health Information Management department at [phone] for further assistance in locating additional records.[facility] Allergies Active Allergy Reactions Severity Noted Date Comments Codeine HEADACHE Low 01/31/2016 Current Medications Prescription Sig. Disp. Refills Start End Date Status Date aspirin EC 81 mg tablet Take 81 mg by mouth Active daily. sertraline (ZOLOFT) 100 Take 100 mg by mouth Active mg tablet daily. nitroglycerin (NITROSTAT) Place 0.4 mg under tongue Active 0.4 mg tablet every 5 minutes as needed for Chest Pain. omega 5-bbs-soi-fish oil Take 1 Cap by mouth Active 300-1,000 mg capsule daily. ALPRAZolam (XANAX) 1 mg Take 1 mg by mouth twice Active tablet daily. lidocaine 5 % gel Apply to affected area Active daily. ASCORBIC ACID Take by mouth daily. Active POIndications: Vitamin C Indications: Vitamin C HYDROcodone/acetaminophen Take 1 Tab [...] lower leg 05/22/2016 Coronary artery disease involving [place] coronary artery of [place] heart 03/ without angina pectoris Acquired genu varum 01/31/2016 Arthralgia of lower leg 01/31/2016 Social History Tobacco Use Types Packs/Day Years Used Date Never Smoker Smokeless Tobacco: Never Used Tobacco Cessation: Counseling Given: Yes Alcohol Use Drinks/Week oz/Week Comments No 0 Standard 0.0 drinks or equivalent Sex Assigned at Date Recorded Not on file Last Filed Vital Signs Vital Sign Reading Time Taken Blood Pressure 154/89 05/22/2016 3:36 PM CDT Pulse 87 05/22/2016 3:36 PM CDT Temperature - - Respiratory Rate - - Oxygen Saturation - - Inhaled Oxygen - - Concentration Weight 79.2 kg (174 lb 9.6 oz) 05/22/2016 3:36 PM CDT Height 167.6 cm (5' 6") 05/22/2016 3:36 PM CDT Body Mass Index 28.18 05/22/2016 3:36 PM CDT Plan of Treatment Health Maintenance Due Date Last Done Comments HEPATITIS C SCREENING 1958 PHYSICAL (COMPREHENSIVE) 1965 EXAM PERTUSSIS VACCINE 1969 TETANUS VACCINE 1975 CERVICAL CANCER SCREENING 1988 BREAST CANCER SCREENING 1998 COLORECTAL CANCER 2008 SCREENING INFLUENZA VACCINE 08/10/2017 Results Not on filefrom Last 3 Months
--- OUTSIDE RECORDS SUMMARY | 2017-08-16 00:09 | XMS REPORT ---
Author Author AMANDA MCGEE Organization [facility] Address [address] [place] [address] Care Team Providers Care Secretarial Stenographer Name Role Phone AMANDA MCGEE Unavailable PROBLEMS Type Condition ICD9-CM Code ISC45-YT Code Onset Dates Condition Status SNOMED Code Problem Arthritis M19.90 Active 9893718 Problem Seasonal allergic rhinitis due to pollen J30.1 Active 99584743 Problem Depression, unspecified depression type F32.9 Active 01134919 Problem Coronary artery disease involving [place] coronary artery of [place] heart without angina pectoris I25.10 Active 8837181063981 Problem Hyperlipidemia, unspecified hyperlipidemia type E78.5 Active 62716214 Problem Pain in right shoulder M25.511 Active 78918153 Problem Severe depression F32.2 Active 851520437 Problem Other chronic pain G89.29 Active 70432145 Problem Anxiety F41.9 Active 38253724 Problem Essential hypertension I10 Active 84078431 ALLERGIES Substance Reaction Event Type Date Status Codeine Sulfate headache Drug Allergy Dec, Active SOCIAL HISTORY Never Assessed PLAN OF CARE Activity Details Follow Up prn Reason: VITAL SIGNS Height 66 in 2016-12-18 Weight 182.8 lbs 2016-12-18 Temperature 98.3 degrees Fahrenheit 2016-12-18 Heart Rate 100 bpm 2016-12-18 Respiratory Rate 22 2016-12-18 BMI 29.50 kg/m2 2016-12-18 Blood pressure systolic 114 mmHg 2016-12-18 Blood pressure diastolic 66 mmHg 2016-12-18 MEDICATIONS Medication Instructions Dosage Frequency Start Date End Date Duration Status Sertraline HCl 100 MG Orally Once a day 1 tablet 24h Active Metoprolol Tartrate 50 MG Orally Twice a day 1/2 tablet 12h Active Multivitamin Adult - Active Ascorbic Acid 100 MG Orally Once a day 1 tablet 24h Active Cyanocobalamin 1000 MCG Orally Once a day 1 tablet 24h Active Tramadol HCl 50 MG Orally every 6 hrs 1 tablet as needed 6h Active Hydrocodone-Acetaminophen 10-325 MG Orally every 6 hrs 1 tablet as needed 6h Active [place] 3 1000 MG Orally Once a day 1 capsule 24h Active Augmentin 875-125 MG Orally every 12 hrs 1 tablet 12h 08 Dec, 2016Dec 10 day(s) Active Aspir-81 81 MG Orally Once a day 1 tablet 24h Active RESULTS No Results PROCEDURES Procedure Date Ordered Result Body Site [facility] VISIT ESTABLISHED PATIENT Dec 18, 2016 IMMUNIZATIONS No Known Immunizations MEDICAL (GENERAL) HISTORY Type Description Date Medical History Reported heart attack in 2014 Medical History Degenerative joint disease in knees Medical History Depression Medical History Anxiety Medical History PTSD Surgical History ganglion cyst Surgical History tonsillectomy Surgical History left knee replacement 11/2016 Surgical History Fusion of 1st and 2nd metacarpal in Left hand Hospitalization History Psych Eval-[facility] [place] 2014
--- OUTSIDE RECORDS SUMMARY | 2017-08-16 00:09 | XMS REPORT ---
Author Author Hina Ramirez Organization [employer] Address Unknown Phone Unavailable Care Team Providers Care Intern Product Marketing Manager Name Role Phone Hina Ramirez CP Unavailable Allergies No Known Allergies Problems Problem Type Condition Code Onset Dates Condition Status Problem History of [place] (myocardial infarction) I25.2 Active Problem Depression F32.9 Active Problem Arthritis of knee, degenerative M17.9 Active Problem Anxiety F41.9 Active Assessment Depression F32.9 Active Medications No Known Medications Procedures Procedure Coding System Code Date PSYTX EST PT&/FAMILY 30 MINUTES CPT-4 20696 Sep 18, 2015 Results No Known Results Summary Purpose [employer] Submission
--- OUTSIDE RECORDS SUMMARY | 2017-08-16 00:09 | XMS REPORT ---
Author Author Dayna Pena Organization [employer] Address Unknown Phone Unavailable Care Team Providers Care Solar Electric Practitioner Name Role Phone Dayna Pena CP Unavailable Allergies, Adverse Reactions, Alerts Substance Reaction Event Type N.K.D.A. Info Not Available Non Drug Allergy Problems Problem Type Condition Code Onset Dates Condition Status Problem History of [place] (myocardial infarction) I25.2 Active Problem Depression F32.9 Active Problem Arthritis of knee, degenerative M17.9 Active Problem Anxiety F41.9 Active Assessment Arthritis of knee, degenerative M17.9 Active Medications Medication Code System Code Instructions Start Date End Date Status Dosage Nitroglycerin [facility] [address]-76 0.4 MG Sublingual not defined [place] [facility] [address]-10 7.5-325 MG Orally every 6 hrs Oct 16, 2015 1 tablet as needed Aspirin [facility] [address]-71 81 MG Orally not defined Sertraline HCl [facility] [address]-77 100 MG Orally not defined [place] [facility] [address]-95 not defined Meloxicam [facility] [address]-85 7.5 MG Orally not defined Crestor [facility] [address]-91 40 MG Orally not defined Metoprolol [place] 0 25mg not defined Borage [facility] [address]-27 not defined Alprazolam [facility] [address]-11 1 MG Orally not defined Procedures Procedure Coding System Code Date Office Visit, Est Pt., Level 3 CPT-4 01086 Oct 16, 2015 Vital Signs Date/Time: Oct 16, 2015 Blood Pressure Systolic 132 mm Hg Cardiac Monitoring Heart Rate 82 /min Temperature 98.1 F BMI 26.79 Index Weight 166 lbs Height 66 in Blood Pressure Diastolic 78 mm Hg Respiratory Rate 18 /min Results No Known Results Summary Purpose [employer] Submission
--- OUTSIDE RECORDS SUMMARY | 2017-08-16 00:09 | XMS REPORT ---
Author Author Dayna Pena Organization [employer] Address Unknown Phone Unavailable Care Team Providers Care Llama Farmer Name Role Phone Dayna Pena CP Unavailable Allergies No Known Allergies Problems Problem Type Condition Code Onset Dates Condition Status Problem History of [place] (myocardial infarction) I25.2 Active Problem Anxiety F41.9 Active Problem Arthritis of knee, degenerative M17.9 Active Medications Medication Code System Code Instructions Start Date End Date Status Dosage Lidocaine [facility] [address]-06 5 % Externally not defined Ascorbic Acid [facility] [address]159 not defined Borage [facility] [address]-52 not defined Cyanocobalamin NDC 0 not defined Aspirin [facility] [address]-07 81 MG Orally not defined Nitroglycerin [facility] [address]-52 0.4 MG Sublingual not defined [place] 3 [facility] [address] not defined Crestor [facility] [address]-40 40 MG Orally not defined Meloxicam [facility] [address]-10 7.5 MG Orally not defined Metoprolol NDC 0 25mg not defined Sertraline HCl [facility] [address]-67 100 MG Orally not defined Alprazolam [facility] [address]-13 1 MG Orally not defined Procedures Procedure Coding System Code Date patient intake with non-licensed staff CPT-4 [place] Sep 14, 2015 Vital Signs Date/Time: Sep 14, 2015 BMI 26.79 Index Weight 166 lbs Height 66 in Results No Known Results Summary Purpose [employer] Submission
--- OUTSIDE RECORDS SUMMARY | 2017-08-16 00:09 | XMS REPORT ---
Author Author Dayna Pena Organization [employer] Address Unknown Phone Unavailable Care Team Providers Care Imaging Services Director Name Role Phone Dayna Pena CP Unavailable Allergies No Known Allergies Problems Problem Type Condition Code Onset Dates Condition Status Problem History of [place] (myocardial infarction) I25.2 Active Problem Depression F32.9 Active Problem Arthritis of knee, degenerative M17.9 Active Problem Anxiety F41.9 Active Medications No Known Medications Results No Known Results Summary Purpose [employer] Submission
--- OUTSIDE RECORDS SUMMARY | 2017-08-16 00:09 | XMS REPORT ---
Author Author Dayna Pena Organization [employer] Address Unknown Phone Unavailable Care Team Providers Care Mental Health Worker Name Role Phone Dayna Pena CP Unavailable Allergies No Known Allergies Problems Problem Type Condition Code Onset Dates Condition Status Problem History of [place] (myocardial infarction) I25.2 Active Problem Depression F32.9 Active Problem Arthritis of knee, degenerative M17.9 Active Problem Anxiety F41.9 Active Medications No Known Medications Results No Known Results Summary Purpose [employer] Submission
--- OUTSIDE RECORDS SUMMARY | 2017-08-16 00:09 | XMS REPORT ---
Author Author Dayna Pena Organization [employer] Address Unknown Phone Unavailable Care Team Providers Care Computer Systems Support Specialist Name Role Phone Dayna Pena CP Unavailable Allergies No Known Allergies Problems Problem Type Condition Code Onset Dates Condition Status Problem History of [place] (myocardial infarction) I25.2 Active Problem Depression F32.9 Active Problem Arthritis of knee, degenerative M17.9 Active Problem Anxiety F41.9 Active Medications Medication Code System Code Instructions Start Date End Date Status Dosage Klonopin [facility] [address]-36 1 mg Orally Twice a day prn Oct 25, 2015 1 tablet Results No Known Results Summary Purpose [employer] Submission
--- OUTSIDE RECORDS SUMMARY | 2017-08-16 00:09 | XMS REPORT ---
Author Author Sunny Portillo Organization [employer] Address Unknown Phone Unavailable Care Team Providers Care Cable Ferry Operator Name Role Phone Sunny Portillo CP Unavailable Allergies No Known Allergies Problems Problem Type Condition Code Onset Dates Condition Status Problem History of [place] (myocardial infarction) I25.2 Active Problem Depression F32.9 Active Problem Arthritis of knee, degenerative M17.9 Active Problem Anxiety F41.9 Active Medications Medication Code System Code Instructions Start Date End Date Status Dosage Alprazolam [facility] [address]-08 1 mg Orally Twice a day 1 tablet [place] [facility] [address]-07 7.5-325 MG Orally every 6 hrs Oct 16, 2015 1 tablet as needed Results No Known Results Summary Purpose [employer] Submission
--- OUTSIDE RECORDS SUMMARY | 2017-08-16 00:09 | XMS REPORT ---
Author Author Dayna Pena Organization [employer] Address Unknown Phone Unavailable Care Team Providers Care Rope Rider Name Role Phone Dayna Pena CP Unavailable Allergies No Known Allergies Problems Problem Type Condition Code Onset Dates Condition Status Problem History of [place] (myocardial infarction) I25.2 Active Problem Depression F32.9 Active Problem Arthritis of knee, degenerative M17.9 Active Problem Anxiety F41.9 Active Medications Medication Code System Code Instructions Start Date End Date Status Dosage Meloxicam [facility] [address]-73 7.5 MG Orally daily 1 tablet Results No Known Results Summary Purpose [employer] Submission
--- OUTSIDE RECORDS SUMMARY | 2017-08-16 00:09 | XMS REPORT ---
Author Author Dayna Pena Organization [employer] Address Unknown Phone Unavailable Care Team Providers Care Aquarium Tank Attendant Name Role Phone Dayna Pena CP Unavailable Allergies No Known Allergies Problems Problem Type Condition Code Onset Dates Condition Status Problem History of [place] (myocardial infarction) I25.2 Active Problem Depression F32.9 Active Problem Arthritis of knee, degenerative M17.9 Active Problem Anxiety F41.9 Active Medications No Known Medications Results No Known Results Summary Purpose [employer] Submission
--- OUTSIDE RECORDS SUMMARY | 2017-08-16 00:09 | XMS REPORT ---
Author Author Dayna Pena Organization [employer] Address Unknown Phone Unavailable Care Team Providers Care Dust Mixer Name Role Phone Dayna Pena CP Unavailable Allergies No Known Allergies Problems Problem Type Condition Code Onset Dates Condition Status Problem History of [place] (myocardial infarction) I25.2 Active Problem Depression F32.9 Active Problem Arthritis of knee, degenerative M17.9 Active Problem Anxiety F41.9 Active Medications No Known Medications Results No Known Results Summary Purpose [employer] Submission
--- OUTSIDE RECORDS SUMMARY | 2017-08-16 00:09 | XMS REPORT ---
Author Author Dayna Pena [facility] [employer] Address Unknown Phone Unavailable Care Team Providers Care Breakfast Host Name Role Phone Dayna Pena CP Unavailable Allergies No Known Allergies Problems Problem Type Condition Code Onset Dates Condition Status Problem History of [place] (myocardial infarction) I25.2 Active Problem Depression F32.9 Active Problem Arthritis of knee, degenerative M17.9 Active Assessment Anxiety F41.9 Active Assessment Depression F32.9 Active Problem Anxiety F41.9 Active Assessment Arthritis of knee, degenerative M17.9 Active Medications Medication Code System Code Instructions Start Date End Date Status Dosage Alprazolam [facility] [address]-69 1 mg Orally Twice a day 1 tablet Meloxicam [facility] [address]-07 7.5 MG Orally daily 1 tablet Aspirin [facility] [address]-92 81 MG Orally not defined Metoprolol [facility] 0 25mg not defined BusPIRone HCl [facility] [address]-90 5 MG Orally Three times a day 1 tablet Sertraline HCl [facility] [address]-56 100 mg Orally daily 1 tablet Nitroglycerin [facility] [address]-30 0.4 MG Sublingual not defined Crestor [facility] [address]-80 40 MG Orally not defined [place] [facility] [address]-97 7.5-325 MG Orally every 6 hrs Oct 16, 2015 1 tablet as needed Procedures Procedure Coding System Code Date Office Visit, Est Pt., Level 3 CPT-4 30976 Nov 15, 2015 Vital Signs Date/Time: Nov 15, 2015 Blood Pressure Systolic 140 mm Hg Cardiac Monitoring Heart Rate 86 /min Temperature 98.1 F BMI 26.63 Index Weight 165 lbs Height 66 in Blood Pressure Diastolic 82 mm Hg Respiratory Rate 18 /min Results No Known Results Summary Purpose [employer] Submission
--- OUTSIDE RECORDS SUMMARY | 2017-08-16 00:09 | XMS REPORT ---
Author Author Dayna Pena Organization [employer] Address Unknown Phone Unavailable Care Team Providers Care Varnish Melter Name Role Phone Dayna Pena CP Unavailable Allergies No Known Allergies Problems Problem Type Condition Code Onset Dates Condition Status Problem History of [place] (myocardial infarction) I25.2 Active Problem Depression F32.9 Active Problem Arthritis of knee, degenerative M17.9 Active Problem Anxiety F41.9 Active Medications No Known Medications Results No Known Results Summary Purpose [employer] Submission
--- OUTSIDE RECORDS SUMMARY | 2017-08-16 00:10 | XMS REPORT ---
Author Author Dayna Pena Organization [employer] Address Unknown Phone Unavailable Care Team Providers Care Pick Up Name Role Phone Dayna Pena CP Unavailable Allergies, Adverse Reactions, Alerts Substance Reaction Event Type N.K.D.A. Info Not Available Non Drug Allergy Problems Problem Type Condition Code Onset Dates Condition Status Assessment Anxiety F41.9 Active Problem History of [place] (myocardial infarction) I25.2 Active Problem Depression F32.9 Active Problem Arthritis of knee, degenerative M17.9 Active Assessment History of [place] (myocardial infarction) I25.2 Active Assessment Depression F32.9 Active Problem Anxiety F41.9 Active Assessment Arthritis of knee, degenerative M17.9 Active Medications Medication Code System Code Instructions Start Date End Date Status Dosage Borage [facility] [address]-38 not defined Meloxicam [facility] [address]-36 7.5 MG Orally not defined Sertraline HCl [facility] [address]-75 100 MG Orally not defined Aspirin [facility] [address]-49 81 MG Orally not defined Nitroglycerin [facility] [address]-60 0.4 MG Sublingual not defined Alprazolam [facility] [address]-27 1 MG Orally not defined Metoprolol [facility] 0 25mg not defined Crestor [facility] [address]-81 40 MG Orally not defined Procedures Procedure Coding System Code Date Office Visit, New Pt., Level 3 CPT-4 56901 Sep 14, 2015 Vital Signs Date/Time: Sep 14, 2015 Blood Pressure Systolic 128 mm Hg Cardiac Monitoring Heart Rate 80 /min Temperature 98.5 F Respiratory Rate 18 /min Height 66 in Blood Pressure Diastolic 72 mm Hg Results No Known Results Summary Purpose [employer] Submission
--- OUTSIDE RECORDS SUMMARY | 2017-08-16 00:10 | XMS REPORT ---
Author Savita Huitron Organization [employer] Address Unknown Phone Unavailable Care Team Providers Care Plant Anatomy Teacher Name Role Phone Savita Cardenas CP Unavailable Allergies No Known Allergies Problems Problem Type Condition Code Onset Dates Condition Status Problem History of [place] (myocardial infarction) I25.2 Active Problem Depression F32.9 Active Problem Arthritis of knee, degenerative M17.9 Active Problem Anxiety F41.9 Active Assessment Depression F32.9 Active Medications No Known Medications Results No Known Results Summary Purpose [employer]ClinicalWorks Submission
--- OUTSIDE RECORDS SUMMARY | 2017-08-16 00:10 | XMS REPORT ---
Author Author Dayna Pena Organization [employer] Address Unknown Phone Unavailable Care Team Providers Care Special Procedures Tech Name Role Phone Dayna Pena CP Unavailable Allergies No Known Allergies Problems Problem Type Condition Code Onset Dates Condition Status Problem History of [place] (myocardial infarction) I25.2 Active Problem Depression F32.9 Active Problem Arthritis of knee, degenerative M17.9 Active Problem Anxiety F41.9 Active Medications Medication Code System Code Instructions Start Date End Date Status Dosage Sheldon [facility] [address]-29 7.5-325 MG Orally every 6 hrs Oct 16, 2015 1 tablet as needed Alprazolam [facility] [address]-01 1 mg Orally Twice a day 1 tablet Results No Known Results Summary Purpose eClinicalWorks Submission
--- OUTSIDE RECORDS SUMMARY | 2017-08-16 00:10 | XMS REPORT ---
Author Author Dayna Pena Organization [employer] Address Unknown Phone Unavailable Care Team Providers Care Cotton Classer Name Role Phone Dayna Pena CP Unavailable Allergies No Known Allergies Problems Problem Type Condition Code Onset Dates Condition Status Problem History of [place] (myocardial infarction) I25.2 Active Problem Depression F32.9 Active Problem Arthritis of knee, degenerative M17.9 Active Problem Anxiety F41.9 Active Medications No Known Medications Procedures Procedure Coding System Code Date case management with non-licensed/non-billable staff CPT-4 CASEM Oct 13, 2015 Results No Known Results Summary Purpose [employer]Works Submission
--- OUTSIDE RECORDS SUMMARY | 2017-08-16 00:10 | XMS REPORT ---
Author Author Dayna Pena [facility] Address [address], [address] [place] [address] Care Team Providers Care Emergency Vehicle Operator Name Role Phone Dayna Pena Unavailable PROBLEMS Type Condition ICD9-CM Code [id number] Code Onset Dates Condition Status SNOMED Code Problem Arthritis of knee, degenerative M17.9 Active 832682808 Problem History of [place] (myocardial infarction) I25.2 Active 858440079 Problem Depression F32.9 Active 82971938 Problem Anxiety F41.9 Active [id number] ALLERGIES Unknown Allergies SOCIAL HISTORY No smoking Hx information available PLAN OF CARE VITAL SIGNS MEDICATIONS Unknown Medications RESULTS No Results PROCEDURES No Known procedures IMMUNIZATIONS No Known Immunizations
--- OUTSIDE RECORDS SUMMARY | 2017-08-16 00:10 | XMS REPORT ---
Author Author Dayna Pena Organization [employer] Address Unknown Phone Unavailable Care Team Providers Care Chemistry Lecturer Name Role Phone Dayna Pena CP Unavailable [...] Instructions Start Date End Date Status Dosage Lidoderm [facility] [address]-77 5 % Externally Once a day Nov 30, 2015 1 patch to intact skin remove after 12 hours Alprazolam [facility] [address]-94 1 mg Orally Twice a day 1 tablet [place] [facility] [address]-18 7.5-325 MG Orally every 6 hrs Oct 16, 2015 1 tablet as needed Sertraline HCl [facility] [address]-49 100 mg Orally daily 1 tablet Crestor [facility] [address]-79 40 MG Orally not defined Metoprolol [facility] 0 25mg not defined BusPIRone HCl [facility] [address]-56 5 MG Orally Three times a day 1 tablet Meloxicam [facility] [address]-49 7.5 MG Orally daily 1 tablet Nitroglycerin [facility] [address]-76 0.4 MG Sublingual not defined Aspirin [facility] [address]-47 81 MG Orally not defined Procedures Procedure Coding System Code Date Office Visit, Est Pt., Level 3 CPT-4 26722 Nov 30, 2015 Vital Signs Date/Time: Nov 30, 2015 Blood Pressure Systolic 138 mm Hg Cardiac Monitoring Heart Rate 86 /min Temperature 98.1 F BMI 26.63 Index Weight 165 lbs Height 66 in Blood Pressure Diastolic 82 mm Hg Respiratory Rate 18 /min Results No Known Results Summary Purpose eClinicalWorks Submission
--- OUTSIDE RECORDS SUMMARY | 2017-08-16 00:10 | XMS REPORT ---
Author Author Hina Ramirez Organization [employer] Address Unknown Phone Unavailable Care Team Providers Care Core Fitter Name Role Phone Hina Ramirez CP Unavailable Allergies No Known Allergies Problems Problem Type Condition Code Onset Dates Condition Status Problem History of [place] (myocardial infarction) I25.2 Active Problem Depression F32.9 Active Problem Arthritis of knee, degenerative M17.9 Active Problem Anxiety F41.9 Active Assessment Depression F32.9 Active Medications No Known Medications Procedures Procedure Coding System Code Date PSYTX EST PT&/FAMILY 30 MINUTES CPT-4 04931 Oct 13, 2015 Results No Known Results Summary Purpose eClinicalWorks Submission
--- OUTSIDE RECORDS SUMMARY | 2017-08-16 00:10 | XMS REPORT ---
Author Author Dayna Pena Organization [employer] Address Unknown Phone Unavailable Care Team Providers Care Vertical Boring Mill Operator Name Role Phone Dayna Pena CP Unavailable Allergies No Known Allergies Problems Problem Type Condition Code Onset Dates Condition Status Problem History of [place] (myocardial infarction) I25.2 Active Problem Depression F32.9 Active Problem Arthritis of knee, degenerative M17.9 Active Problem Anxiety F41.9 Active Medications Medication Code System Code Instructions Start Date End Date Status Dosage Meloxicam [facility] [place] [address]-89 15 MG Orally daily 1 tablet Results No Known Results Summary Purpose eClinicalWorks Submission
--- OUTSIDE RECORDS SUMMARY | 2017-08-16 00:10 | XMS REPORT ---
Author Author Dayna Pena Organization [employer] Address Unknown Phone Unavailable Care Team Providers Care Recycling Or Rubbish Collector Name Role Phone Dayna Pena CP Unavailable Allergies, Adverse Reactions, Alerts Substance Reaction Event Type N.K.D.A. Info Not Available Non Drug Allergy Problems Problem Type Condition Code Onset Dates Condition Status Problem History of [place] (myocardial infarction) I25.2 Active Problem Depression F32.9 Active Problem Arthritis of knee, degenerative M17.9 Active Problem Anxiety F41.9 Active Assessment Arthritis of knee, degenerative M17.9 Active Medications Medication Code System Code Instructions Start Date End Date Status Dosage Borage [facility] [address]-77 not defined Metoprolol [place] 0 25mg not defined Crestor [facility] [address]-03 40 MG Orally not defined Sertraline HCl [facility] [address]-45 100 MG Orally not defined Alprazolam [facility] [address]-63 1 MG Orally not defined [place] [facility] [address]-59 5-325 MG Orally every 6 hrs Sep 28, 2015 1 or 2 tablets Nitroglycerin [facility] [address]-85 0.4 MG Sublingual not defined Meloxicam [facility] [address]-69 7.5 MG Orally not defined Aspirin [facility] [address]-90 81 MG Orally not defined [place] [facility] [address]-32 not defined Procedures Procedure Coding System Code Date Office Visit, Est Pt., Level 3 CPT-4 12845 Sep 28, 2015 Vital Signs Date/Time: Sep 28, 2015 Height 66 in Blood Pressure Diastolic 80 mm Hg Blood Pressure Systolic 140 mm Hg Respiratory Rate 18 /min BMI 26.79 Index Weight 166 lbs Results No Known Results Summary Purpose eClinicalWorks Submission
--- OUTSIDE RECORDS SUMMARY | 2017-08-16 00:10 | XMS REPORT ---
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.10 Active Problem Depression, unspecified depression type F32.9 Active Problem Arthritis M19.90 Active Assessment Depression, unspecified depression type F32.9 Active Assessment Arthritis M19.90 Active Assessment Coronary artery disease involving [place] coronary artery of [place] heart without angina pectoris I25.10 Active Medications Medication Code System Code Instructions Start Date End Date Status Dosage Alprazolam [facility] [address]-29 1 MG Orally Twice a day 1 tablet Sertraline HCl [facility] [address]-83 100 MG Orally Once a day 1 tablet Ascorbic Acid [facility] 59732-[address]273 100 MG Orally Once a day 1 tablet Lidocaine [facility] [address]-00 5 % Externally not defined Crestor [facility] [address]-92 40 MG Orally Once a day 1 tablet [place] 3 [facility] [address]85 1000 MG Orally Once a day 1 capsule Nitroglycerin [facility] [address]-14 0.4 MG Sublingual not defined Hydrocodone-Acetaminophen [facility] [address]-88 7.5-325 MG Orally every 6 hrs 1 tablet as needed Cyanocobalamin [facility] [address]-33 1000 MCG Orally Once a day 1 tablet Aspir-81 [facility] [address]-85 81 MG Orally Once a day 1 tablet Multivitamin Adult [facility] [address]75[address] - Orally not defined Mobic [facility] [address]-17 15 MG Orally Once a day Aug 26, 2016 1 tablet Triamcinolone Acetonide [facility] [address]-87 0.1 % Externally Twice a day Aug 15, 2016 1 application to affected area Metoprolol Tartrate [facility] [address]-95 50 MG Orally Twice a day 1/ 2 tablet Procedures Procedure Coding System Code Date Office Visit, Est Pt., Level 4 CPT-4 43325 Aug 26, 2016 Vital Signs Date/Time: Aug 26, 2016 Cardiac Monitoring Heart Rate 88 bpm Weight 165 lbs Height 66 in BMI 26.63 Index Blood Pressure Diastolic 70 mmHg Blood Pressure Systolic 134 mmHg Results No Known Results Summary Purpose eClinicalWorks Submission
--- OUTSIDE RECORDS SUMMARY | 2017-08-16 00:11 | XMS REPORT | Continuity of Care Document ---
Author Author [facility] Organization [facility] Address Unknown Phone Unavailable Allergies Active Description Code Type Severity Reaction Onset Reported/Identified Relationship to Patient Clinical Status Yes codeine Drug N/A WALL - Headache Yes codeine Drug N/A WALL - Headache Medications Problems Date Dx Coded Attending Type Code Diagnosis Diagnosed By 06/11/2015 Dimas Christopher Final 338.19 Other Acute Pain 06/11/2015 Dimas Christopher Final 338.29 Other Chronic Pain 06/11/2015 Dimas Christopher Final 719.46 Pain in Joint Involving Lower Leg 11/14/2015 Fabian Macias Final I10 Essential (primary) hypertension 11/14/2015 Fabian Macias Final M25.561 Pain in right knee 11/14/2015 Fabian Macias Final M25.562 Pain in left knee 11/14/2015 Fabian Macias Final Z76.0 Encounter for issue of repeat prescription 12/31/2015 ELEONORA CREWS Final Z71.1 Person with feared health complaint in whom no diagnosis is Procedures Code [place] [address] Therapeutic, prophylactic, or diagnostic MIRZA HSIEH 11/14/2015 07662 Emergency department visit for the evalu JORI MIRZA 11/14/2015 Results Encounters ACCT No. Visit Date/Time Discharge Status Pt. Type Provider Facility Loc./Unit Complaint [id number] 12/31/2015 14:38:00 2015 15:56:00 DIS Emergency ELEONORA CREWS [facility] ER Multiple Complaints [id number] 11/14/2015 12:10:00 2015 13:20:00 DIS Emergency Gilberto Fabian [facility] ER General Medical [id number] 06/11/2015 09:00:00 2014 12:03:00 DIS Emergency Dimas Christopher [facility] ER Orthopedic [id number] 06/12/2017 00:00:00 2016 23:59:59 CLS Outpatient Scanned Documents [id number] 11/22/2016 00:00:00 2016 23:59:59 CLS Outpatient Scanned Documents [id number] 11/13/2016 00:00:00 2016 23:59:59 CLS Outpatient Scanned Documents [id number] 11/12/2016 00:00:00 2016 23:59:59 CLS Outpatient Scanned Documents [id number] 02/01/2016 12:17:48 2015 23:59:59 CLS Outpatient RUPAL MALLORY [facility] Annual Exam non obstructive CAD [id number] 06/07/2015 14:13:17 2014 23:59:59 CLS Outpatient [facility] WAYNE MOLE BIOPSY/REMOVAL [id number] 05/26/2015 14:34:55 2014 23:59:59 CLS Outpatient [facility] SW RAY F/U [id number] 05/26/2015 00:00:00 2014 23:59:59 CLS Outpatient Scanned Documents [id number] 05/23/2015 09:58:56 2014 23:59:59 CLS Outpatient [facility] lipid/comp [id number] 05/17/2015 14:32:08 2014 23:59:59 CLS Outpatient [facility] braces for legs needs different size [id number] 05/17/2015 14:28:36 2014 23:59:59 CLS Outpatient [facility] SW [id number] 05/15/2015 14:04:40 2014 23:59:59 CLS Outpatient [facility] has a bleeding mole on ear [id number] 05/03/2015 14:24:36 2014 23:59:59 CLS Outpatient [facility] SW [id number] 04/26/2015 14:18:43 2014 23:59:59 CLS Outpatient [facility] sw ray f/u [id number] 04/19/2015 13:00:02 2014 23:59:59 CLS Outpatient [facility] SW [id number] 04/13/2015 11:33:46 2014 23:59:59 CLS Outpatient [facility] RACHEAL BELL F/Minesh [id number] 03/29/2015 12:56:17 2014 23:59:59 CLS Outpatient Rupal Bryant [facility] RACHEAL BELL INITIAL APPT [id number] 03/07/2015 10:08:10 2014 23:59:59 CLS Outpatient [facility] RACHEAL NUNEZ KNEE PAIN [id number] 02/20/2015 10:09:08 2014 23:59:59 CLS Outpatient [facility] juancho [place] knee pain [id number] 02/06/2015 09:03:34 2014 23:59:59 CLS Outpatient Rupal Bryant [facility] RACHEAL F/Minesh-HTN
== END 2017-08-16 01:04 | disposition left against medical advice (07) ==
LOC: EDUNIT# → ER 00:04
DX: S80.862A Insect bite (nonvenomous), left lower leg, initial encounter (principal); W57.XXXA Bitten or stung by nonvenomous insect and other nonvenomous arthropods, initial encounter
CPT/HCPCS: 99283

== ENCOUNTER 2018-12-08 09:08 | Outpatient (CLI) | payer MEDICARE, MEDICAID ==
[~2018-12-08] VITALS: Ht 167.6 cm; Wt 81.4 kg
[2018-12-08] MEDS ORDERED: SERT50TA9 PO (09:21)
[2018-12-08] MEDS ORDERED: ALPR0.5T7 PO (09:21)
[2018-12-08] MEDS ORDERED: ATOR40TA PO (09:21)
[2018-12-08] MEDS ORDERED: QUET100T PO (09:21)
[2018-12-08 09:26] VITALS: BP 153/90
[2018-12-08 09:56] LABS: BASOPHILS % (AUTO) 0 % (0-10); EOSINOPHILS # (AUTO) 0.1 10^3/uL (0.0-0.3); EOSINOPHILS % (AUTO) 1 % (0-10); HEMATOCRIT 42 % (35-52); HEMOGLOBIN 14.2 G/DL (11.5-16.0); LYMPHOCYTES # (AUTO) 1.9 X 10^3 (1.0-4.0); LYMPHOCYTES % (AUTO) 28 % (12-44); MEAN CORPUSCULAR HEMOGLOBIN 31 PG (25-34); MEAN CORPUSCULAR HGB CONC 34 G/DL (32-36); MEAN CORPUSCULAR VOLUME 91 FL (80-99); MONOCYTES # (AUTO) 0.4 X 10^3 (0.0-1.0); MONOCYTES % (AUTO) 6 % (0-12); NEUTROPHILS # (AUTO) 4.4 X 10^3 (1.8-7.8); NEUTROPHILS % (AUTO) 64 % (42-75); PLATELET COUNT 306 10^3/uL (130-400); RED CELL DISTRIBUTION WIDTH 13.6 % (10.0-14.5); WHITE BLOOD COUNT 6.9 10^3/uL (4.3-11.0)
[2018-12-08 09:58] LABS: BILIRUBIN,URINE NEGATIVE (NEGATIVE); CLARITY,URINE CLEAR; COLOR,URINE YELLOW; GLUCOSE, URINE (UA) NEGATIVE (NEGATIVE); KETONES,URINE NEGATIVE (NEGATIVE); LEUKOCYTE ESTERASE ,URINE 2+ (NEGATIVE); NITRITE,URINE NEGATIVE (NEGATIVE); PH,URINE 5 (5-9); PROTEIN,URINE 1+ (NEGATIVE); UROBILINOGEN,URINE 1 MG/DL (NORMAL)
[2018-12-08 10:05] LABS: BACTERIA,URINE NEGATIVE /HPF
[2018-12-08 10:08] LABS: INR 0.9 (0.8-1.4); PROTHROMBIN TIME PATIENT 11.9 SEC (12.2-14.7)
[2018-12-08 10:39] LABS: ALANINE AMINOTRANSFERASE 36 U/L (0-55); ALBUMIN 4.3 GM/DL (3.2-4.5); ALKALINE PHOSPHATASE 161 U/L (40-136); BILIRUBIN,TOTAL 0.4 MG/DL (0.1-1.0); BUN/CREATININE RATIO 23; CALCIUM 9.9 MG/DL (8.5-10.1); CARBON DIOXIDE 24 MMOL/L (21-32); CHLORIDE 104 MMOL/L (98-107); CREATININE SERUM 0.86 MG/DL (0.60-1.30); GFR ESTIMATED > 60; GLUCOSE 109 MG/DL (70-105); SODIUM 139 MMOL/L (135-145); TOTAL PROTEIN 7.8 GM/DL (6.4-8.2)
[2018-12-08 10:40] LABS: ERYTHROCYTE SEDIMENTATION RATE 17 MM/HR (0-30)
--- NOTE | 2018-12-08 13:03 | Diagnostic Imaging Report ---
EXAMINATION: PA and lateral chest at 09:56 a.m. INDICATION: Preop. FINDINGS: The heart size is within normal limits and stable when compared to 11/13/2016. The lungs are clear. There is no evidence for failure, pneumonia, or for a pleural effusion. The mediastinum is not widened. The osseous structures are intact. IMPRESSION: There is no evidence for an acute cardiopulmonary abnormality. Dictated by: Dictated on workstation # [id number]
== END 2018-12-08 13:43 | disposition home or self-care (01) ==
LOC: PREOP 09:08
PROVIDERS: ATTEND Orthopaedic Surgery
DX: Z01.810 Encounter for preprocedural cardiovascular examination (principal); Z01.811 Encounter for preprocedural respiratory examination; Z01.812 Encounter for preprocedural laboratory examination; Z11.2 Encounter for screening for other bacterial diseases; M17.11 Unilateral primary osteoarthritis, right knee; R53.83 Other fatigue
CPT/HCPCS: 36415; 71046; 80053; 81000; 85025; 85610; 85652; 86850; 86900; 86901; 87081

== ENCOUNTER 2018-12-16 05:46 | Inpatient (IN) | payer MEDICARE, MEDICAID ==
--- NOTE | 2018-12-07 12:04 | HISTORY AND PHYSICAL ---
DATE OF SERVICE: ADMISSION HISTORY AND PHYSICAL This will be for inpatient admission on 12/16/2018. Date of service, date of surgery, date of admission will be to 12/16/2018. The patient will require regular inpatient admission due to pain management issues, gait abnormalities, weakness and instability. HISTORY OF PRESENT ILLNESS: The patient is a 58-year-old female with complaints of right knee pain. She has known osteoarthritis of her right knee and has undergone treatment with anti-inflammatories as well as injections in the past. She reports activity limitations in the knee. She underwent left total knee arthroplasty in the past with good results. She denies hip pain, denies back pain, denies paresthesias due to functional impairment and failure to improve with conservative measures, the patient elected to proceed with surgical intervention. Radiographs reveal severe medial and patellofemoral arthrosis with moderate lateral joint space narrowing. REVIEW OF SYSTEMS: No chest pain, no shortness of breath. No dysuria. PAST MEDICAL HISTORY: Anxiety disorder, depression, osteoarthritis, myocardial infarction, and tobacco use. PAST SURGICAL HISTORY: Tonsillectomy, left total knee arthroplasty, ganglion cyst excision, and wrist . FAMILY HISTORY: Significant for diabetes, stroke, cancer. PRIMARY CARE PROVIDER: Dr. Savage. MEDICATIONS: Sertraline, alprazolam, Seroquel, atorvastatin. ALLERGIES: CODEINE. SOCIAL HISTORY: The patient smokes half pack of cigarettes a day. Denies alcohol use. PHYSICAL EXAMINATION: GENERAL: The patient is well developed, well-nourished, in no acute distress. HEENT: Normocephalic, atraumatic. Pupils are equal, round and reactive to light. Oropharynx is clear. NECK: Supple. No lymphadenopathy. LUNGS: Clear to auscultation bilaterally. HEART: Regular rate and rhythm. ABDOMEN: Soft, nontender, nondistended. EXTREMITIES: The right knee demonstrates varus alignment. No skin lesions noted. She has a moderate effusion. She has marked patellofemoral crepitus. Range of motion 0/4/120. Trace valgus laxity, no varus laxity. Negative anterior and posterior drawer. She ambulates with an antalgic gait. IMPRESSION: Right knee severe osteoarthritis, unresponsive to conservative measures. PLAN: Right total knee arthroplasty. The risks, benefits, options, ramifications and recovery have been discussed at length with the patient. She understands and wishes to proceed. Job ID: [id number] DocumentID: [id number] Dictated Date: 12/07/2018 11:29:53 Produce Team Lead Date: 12/07/2018 12:04:14 Dictated By: RASHID LUNDY MD
--- NOTE | 2018-12-08 12:27 | NUR ---
4 PRESCRIPTION MEDICATIONS WERE REPORTED BY PREOP NURSE. I VERIFIED WITH [facility] WHAT HAS BEEN FILLED RECENTLY. THE LIPITOR WAS PAST DUE FOR REFILL, I NOTED THE PAST DUE FILL DATE AND LEFT IT ON THE MED REC. PATIENT WAS NOT RE-INTERVIEWED AT THIS TIME. [facility] FILLED: 11-23-18 ALPRAZOLAM 0.5MG BID PRN #60 11-23-18 SEROQUEL 100MG HS #30 11-23-18 SERTRALINE 50MG DAILY #30 10-19-18 LIPITOR 40MG #30
[~2018-12-16] VITALS: Ht 167.6 cm; Wt 82.1 kg
[2018-12-16] VITALS (8 sets, daily range): BP systolic 126–186; BP diastolic 75–86
[~2018-12-16 05:46] MED LIST changes: +ALPR0.5T7 PO; +ATOR40TA PO; +QUET100T PO; +SERT50TA9 PO
--- OUTSIDE RECORDS SUMMARY | 2018-12-16 05:51 | XMS REPORT | Clinical Summary ---
Author Author [facility] Organization [facility] Address Unknown Phone Unavailable Care Team Providers Care Curriculum Counselor Name Role Phone PP Unavailable Allergies Comments Active Allergy Reactions Severity Noted Date WALL's Codeine Other (See 06/26/2015 Comments) Medications End Date Status Medication Sig Dispensed Refills Start Date Active metoprolol tartrate Take 25 mg by 0 (LOPRESSOR) 25 MG mouth 2 (two) tabletIndications: times daily. Hypertension Indications: High Blood Pressure Active nitroglycerin Place 0.4 mg 0 (NITROQUICK) 0.4 MG SL under the tablet tongue every 5 (five) minutes as needed for Chest pain. Active famotidine (PEPCID) 20 MG Take 1 tablet 28 tablet 0 tabletIndications: (20 mg total) 5 Gastroesophageal Reflux by mouth 2 Disease (two) times daily. Indications: Gastroesophag eal Reflux Disease Active FLUoxetine (PROZAC) 40 MG Take 1 30 capsule 0 capsuleIndications: Major capsule (40 5 Depressive Disorder mg total) by mouth nightly. Indications: Major Depressive Disorder Active hydrocodone-acetaminophen Take 1 tablet 12 tablet 0 (NORCO) 7.5-325 by mouth 4 5 MGIndications: Moderate (four) times to Moderately Severe Pain daily. Indications: Moderate to Moderately Severe Pain Do not exceed a daily dose of 4 tablets Active loratadine (CLARITIN) 10 Take 1 tablet 30 tablet 0 07/04/201 MG tabletIndications: (10 mg total) 5 Perennial Allergic by mouth Rhinitis daily. Indications: Perennial Rhinitis Active OLANZapine (ZYPREXA) 5 MG Take 1 tablet 14 tablet 0 tabletIndications: Major (5 mg total) 5 Depressive Disorder by mouth daily. Indications: Major Depressive Disorder Active OLANZapine zydis Place 1 14 tablet 0 (ZYPREXA) 10 MG tablet (10 mg 5 disintegrating total) under tabletIndications: the tongue 2 Agitation (two) times daily as needed (for Severe Agitation). Indications: Agitation Active zolpidem (AMBIEN) 5 MG Take 1 tablet 30 tablet 0 tabletIndications: (5 mg total) 5 Insomnia by mouth nightly as needed for Sleep. 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 Last Filed Vital Signs Time Taken Vital Sign Reading 07/04/2015 9:39 AM CDT Blood Pressure 101/59 07/04/2015 9:39 AM CDT Pulse 76 07/04/2015 9:39 AM CDT Temperature 36.6 C (97.9 F) 07/04/2015 9:39 AM CDT Respiratory Rate 18 07/04/2015 9:39 AM CDT Oxygen Saturation 97% - Inhaled Oxygen - Concentration 06/27/2015 12:15 AM CDT Weight 72.6 kg (160 lb) 06/27/2015 12:15 AM CDT Height 167.6 cm (5' 6") 06/27/2015 12:15 AM CDT Body Mass Index 25.82 Plan of Treatment Health Maintenance Due Date Last Done Comments Hepatitis C Screening 1960 DTaP,Tdap,and Td Vaccines 1977 (1 - Tdap) CERVICAL CANCER SCREENING 1979 Breast Cancer 2008 Screening-Mammogram Colon Cancer Screening 2008 Zoster Recombinant 2008 Vaccine (RZV,Shingrix) (1 of 2 - SV 2 Dose Standard) Influenza Vaccine (#1) 2018 Results Not on filefrom Last 3 Months Insurance Type Payer Benefit Subscriber ID Effective Phone Address Plan / Dates Group MEDICAID MEDICAID xxxxxxxxxxx 2015- [phone] [id number] [facility] [address] [place] [address] [address] (Home) [place] [address] Advance Directives For more information, please contact: [address] [address] Date Inactivated Comments Code Status Date Activated Full Code 07/04/2015 12:03 PM 07/04/2015 12:03 PM Full Code 06/27/2015 1:29 AM
--- OUTSIDE RECORDS SUMMARY | 2018-12-16 05:51 | XMS REPORT | Clinical Summary ---
Author Author [facility] Organization [facility] Address Unknown Phone Unavailable Care Team Providers Care Director Child Development Center Name Role Phone No Pcp, Na PCP Unavailable No Pcp, Na Unavailable Unavailable Celina Kamara MD Unavailable Source Comments Some departments are not documenting in the electronic medical record. If you do not see the information that you expected, contact Release of Information in the Health Information Management department at [phone] for further assistance in locating additional records.[facility] Allergies Comments Active Allergy Reactions Severity Noted Date Codeine UNKNOWN Low 06/11/2015 Codeine HEADACHE Low 01/31/2016 Medications End Date Status Medication Sig Dispensed Refills Start Date Active aspirin EC 81 mg tablet Take 81 mg by 0 mouth daily. Active sertraline (ZOLOFT) 100 Take 100 mg 0 mg tablet by mouth daily. Active nitroglycerin (NITROSTAT) Place 0.4 mg 0 0.4 mg tablet under tongue every 5 minutes as needed for Chest Pain. Active omega 3-ewn-sko-fish oil Take 1 Cap by 0 300-1,000 mg capsule mouth daily. Active ALPRAZolam (XANAX) 1 mg Take 1 mg by 0 tablet mouth twice daily. Active lidocaine 5 % gel Apply to 0 affected area daily. Active ASCORBIC ACID Take by 0 POIndications: Vitamin C mouth daily. Indications: Vitamin C Active HYDROcodone/acetaminophen Take 1 Tab by 0 (NORCO) 7.5/325 mg tablet mouth every 6 hours as needed for Pain Active MULTIVITAMIN WITH Take by 0 MINERALS (MULTIVITAMIN & mouth daily. MINERAL FORMULA PO) Active cyanocobalamin(+) Take 100 mcg 0 (VITAMIN B-12) 100 mcg by mouth tablet daily. Active metoprolol (LOPRESSOR) 25 Take 25 mg by 0 mg tablet mouth twice daily. Active rosuvastatin (CRESTOR) 40 Take 40 mg by 0 mg tablet mouth daily. Active MISCELLANEOUS MEDICAL Take by 0 SUPPLY MISC mouth daily. Active Problems Problem Noted Date Primary localized osteoarthrosis, lower leg 05/22/2016 Coronary artery disease involving [place] coronary artery of [place] heart without angina pectoris Acquired genu varum 01/31/2016 Arthralgia of lower leg 01/31/2016 Social History Date Tobacco Use Types Packs/Day Years Used Never Smoker Smokeless Tobacco: Never Used Tobacco [...] Vital Signs Time Taken Vital Sign Reading 05/22/2016 3:36 PM CDT Blood Pressure 154/89 05/22/2016 3:36 PM CDT Pulse 87 06/11/2015 7:32 PM CDT Temperature 36.8 C (98.2 F) - Respiratory Rate - 06/11/2015 10:13 PM CDT Oxygen Saturation 98% - Inhaled Oxygen - Concentration 05/22/2016 3:36 PM CDT Weight 79.2 kg (174 lb 9.6 oz) 05/22/2016 3:36 PM CDT Height 167.6 cm (5' 6") 05/22/2016 3:36 PM CDT Body Mass Index 28.18 Plan of Treatment Health Maintenance Due Date Last Done Comments HEPATITIS C SCREENING 1958 PHYSICAL (COMPREHENSIVE) 1965 EXAM HIV SCREENING 1973 DTAP/TDAP VACCINES (1 - 1976 Tdap) CERVICAL CANCER SCREENING 1988 BREAST CANCER SCREENING 1998 COLORECTAL CANCER 2008 SCREENING SHINGLES RECOMBINANT 2008 VACCINE (1 of 2) INFLUENZA VACCINE 06/10/2018 Results Not on filefrom Last 3 Months Insurance Payer Benefit Subscriber ID Type Phone Address Plan / Group [facility] MEDICAID [facility] xxxxxxxxxxx Medicaid [place] Advance Directives Patient has advance care planning documents on file. For more information, please contact: [facility] [address] [place] [address]
--- OUTSIDE RECORDS SUMMARY | 2018-12-16 05:52 | XMS REPORT ---
Author Author DEBBIE GILBERT Organization [facility] Address [address] [place] [address] Care Team Providers Care Blood Coordinator Name Role Phone DEBBIE GILBERT Unavailable PROBLEMS Type Condition ICD9-CM Code [id number] Code Onset Dates Condition Status SNOMED Code Problem Arthritis M19.90 Active 0993590 Problem Seasonal allergic rhinitis due to pollen J30.1 Active 30421486 Problem Depression, unspecified depression type F32.9 Active 19202260 Problem Coronary artery disease involving [place] coronary artery of [place] heart without angina pectoris I25.10 Active 7806962516482 Problem Hyperlipidemia, unspecified hyperlipidemia type E78.5 Active 76980363 Problem Pain in right shoulder M25.511 Active 81046937 Problem Severe depression F32.2 Active 104292121 Problem Other chronic pain G89.29 Active 72557080 Problem Anxiety F41.9 Active 90350004 Problem Essential hypertension I10 Active 13479198 ALLERGIES No Information ENCOUNTERS Encounter Location Date Diagnosis [facility] [id number] [place] [address]76[address]186 March, Medicare annual wellness visit, initial Z00.00 [facility] [id number] [place] [address] 00273[address] 5066 Nov, Pain in right shoulder M25.511 [facility] [id number] [place] [address]9949 -6788 Nov, Acute maxillary sinusitis, recurrence not specified J01.00 [facility] [id number] [place] [address]24 [address]7462 Aug, Cellulitis L03.90 [facility] [id number] [place] [address] 67755- 6268 Aug, Arthritis M19.90 ; Other chronic pain G89.29 and Biceps tendonitis on right M75.21 [place] [id number] [place] [address] 27659- 4239 Jun, Pain in right shoulder M25.511 [place] [id number] [place] [address] 66693- 0253 Jun, Pain in right shoulder M25.511 [place] [id number] [place] [address] 05961- 4757 Jun, Coronary artery disease involving [place] coronary artery of [place] heart without angina pectoris I25.10 ; Essential hypertension I10 ; Hyperlipidemia, unspecified hyperlipidemia type E78.5 and Anxiety F41.[address] [address] May, Pain in right shoulder M25.511 and Biceps tendonitis, right M75.[address] [address] May, Essential hypertension I10 ; Coronary artery disease involving [place] coronary artery of [place] heart without angina pectoris I25.10 ; Anxiety F41.9 ; Severe depression F32.2 ; Screening for diabetes mellitus (DM ) Z13.1 ; Screening for lipid disorders Z13.220 ; Pain in right shoulder M25.511 ; Bug bites, initial encounter W57.XXXA ; Arthritis M19.90 and Other chronic pain G89.29 [place] [id number] [place] [address] 69731- 9907 May, [facility] [address] [place], [place] [id number] [place] [address]89 [address]7041 Feb, Acute upper respiratory infection, unspecified J06.9 [facility] [address] [place], [place] [id number] [place] [address]2536 -9441 Dec, Acute non-recurrent maxillary sinusitis J01.00 and Abscessed tooth K04.7 [facility] [place] [id number] [place] [address]51 -0685 Sep, Pain in right knee M25.561 ; Pain in left knee M25.562 ; Other chronic pain G89.29 ; Sore throat J02.9 ; Possible exposure to STD Z20.2 and Seasonal allergic rhinitis due to pollen J30.1 [facility] [address] [facility] [id number] [place] [address] Aug, Arthritis M19.90 ; Coronary artery disease involving [place] coronary artery of [place] heart without angina pectoris I25.10 and Depression, unspecified depression type F32.9 [facility] [address] [facility] [id number] [place] [address] Aug, Bug bites, initial encounter W57.XXXA IMMUNIZATIONS No Known Immunizations SOCIAL HISTORY Never Assessed REASON FOR VISIT Xray (walk-in) MHill RT(R) PLAN OF CARE VITAL SIGNS MEDICATIONS Unknown Medications RESULTS Name Result Date Reference Range Xray : Shoulder, Right 2 view (IN HOUSE) 2017-06-13 PROCEDURES Procedure Date Ordered Result Body Site X-RAY EXAM OF SHOULDER Jun 13, 2017 INSTRUCTIONS MEDICATIONS ADMINISTERED No Known Medications MEDICAL (GENERAL) HISTORY Type Description Date Medical History Reported heart attack in 2014 Medical History Degenerative joint disease in knees Medical History Depression Medical History Anxiety Medical History PTSD Surgical History ganglion cyst Surgical History tonsillectomy Surgical History left knee replacement 11/2016 Surgical History Fusion of 1st and 2nd metacarpal in Left hand Hospitalization History Psych Eval-[facility] [place] 2014
--- OUTSIDE RECORDS SUMMARY | 2018-12-16 05:52 | XMS REPORT ---
Author Author DEBBIE GILBERT Organization [facility] Address [address] [place] [address] Care Team Providers Care Executive Candidate Developer Name Role Phone DEBBIE GILBERT Unavailable PROBLEMS Type Condition ICD9-CM Code KZD08-MS Code Onset Dates Condition Status SNOMED Code Problem Arthritis M19.90 Active 2589753 Problem Seasonal allergic rhinitis due to pollen J30.1 Active 66578726 Problem Depression, unspecified depression type F32.9 Active 78146643 Problem Coronary artery disease involving [place] coronary artery of [place] heart without angina pectoris I25.10 Active 1383551370423 Problem Hyperlipidemia, unspecified hyperlipidemia type E78.5 Active 79272884 Problem Pain in right shoulder M25.511 Active 56215501 Problem Severe depression F32.2 Active 257368362 Problem Other chronic pain G89.29 Active 93504058 Problem Anxiety F41.9 Active 96451021 Problem Essential hypertension I10 Active 56504851 ALLERGIES Substance Reaction Event Type Date Status Codeine Sulfate headache Drug Allergy May, Active ENCOUNTERS Encounter Location Date Diagnosis [facility] [id number] [place] [address]78[address] March, Medicare annual wellness visit, initial Z00.00 [facility] [id number] [place] [address] 20675- 5165 Nov, Pain in right shoulder M25.511 [facility] [id number] [place] [address]7976 -7052 Nov, Acute maxillary sinusitis, recurrence not specified J01.00 [facility] [id number] [place] [address]45 -9256 Aug, Cellulitis L03.90 [facility] [id number] [place] [address] 34578- 6501 Aug, Arthritis M19.90 ; Other chronic pain G89.29 and Biceps tendonitis on right M75.21 [id number] [place] [address] 98824- 2324 Jun, Pain in right shoulder M25.511 [address] [id number] [place] [address] 65158- 7981 Jun, Pain in right shoulder M25.511 [place] [address] [address] Jun, Coronary artery disease involving [place] coronary artery of [place] heart without angina pectoris I25.10 ; Essential hypertension I10 ; Hyperlipidemia, unspecified hyperlipidemia type E78.5 and Anxiety F41.[address] [address]84- [address] May, Pain in right shoulder M25.511 and Biceps tendonitis, right M75.[address] 74416- 3073 May, Essential hypertension I10 ; Coronary artery disease involving [place] coronary artery of [place] heart without angina pectoris I25.10 ; Anxiety F41.9 ; Severe depression F32.2 ; Screening for diabetes mellitus (DM ) Z13.1 ; Screening for lipid disorders Z13.220 ; Pain in right shoulder M25.511 ; Bug bites, initial encounter W57.XXXA ; Arthritis M19.90 and Other chronic pain G89.29 [address] [id number] [place] [address] 18072- 6581 May, [facility] [address] [place] [id number] [place] [address] 77926 -7077 Feb, Acute upper respiratory infection, unspecified J06.9 [facility] [address] [place] [id number] [place] [address]40 -5947 Dec, Acute non-recurrent maxillary sinusitis J01.00 and Abscessed tooth K04.7 [facility] [address] [place] [id number] [place] [address] 23584 -4641 14 Sep, 2016 Pain in right knee M25.561 ; Pain in left knee M25.562 ; Other chronic pain G89.29 ; Sore throat J02.9 ; Possible exposure to STD Z20.2 and Seasonal allergic rhinitis due to pollen J30.1 [facility] [address] [facility] [id number] [place] [address] Aug, Arthritis M19.90 ; Coronary artery disease involving [place] coronary artery of [place] heart without angina pectoris I25.10 and Depression, unspecified depression type F32.9 [facility] [address] [facility] [id number] [place] [address] Aug, Bug bites, initial encounter W57.XXXA IMMUNIZATIONS No Known Immunizations SOCIAL HISTORY Never Assessed REASON FOR VISIT heart f/u per Gisel--tcuppeCate, -Has appt with Investment Banking Manager this , - Continues with Right shoulder pain. Pt states tramadol shes unable to take for pain at night due to keeps her awake PLAN OF CARE Activity Details Follow Up 3 Months with Bekah for f/u CAD, will schedule appt for injection if she chooses Reason: VITAL SIGNS Height 66 in 2017-06-09 Weight 183.0 lbs 2017-06-09 Temperature 99.4 degrees Fahrenheit 2017-06-09 Heart Rate 76 bpm 2017-06-09 Respiratory Rate 20 2017-06-09 BMI 29.53 kg/m2 2017-06-09 Blood pressure systolic 148 mmHg 2017-06-09 Blood pressure diastolic 92 mmHg 2017-06-09 MEDICATIONS Medication Instructions Dosage Frequency Start Date End Date Duration Status Crestor 40 mg Orally Once a day 1 tablet 24h 30 days Active Meloxicam 15 MG Orally Once a day 1 tablet 24h Active Sertraline HCl 100 mg Orally Once a day 1/2 tablet for 1 week then 1 tab daily 24h 30 days Active Aspir-81 81 MG Orally Once a day 1 tablet 24h 8 Dec, 2017 30 days Active Tramadol HCl 50 mg Orally BID PRN 1 tablet as needed Jun, 28 days Active Metoprolol Tartrate 50 mg Orally Twice a day 1/2 tablet 12h 30 days Active RESULTS No Results PROCEDURES Procedure Date Ordered Result Body Site [facility] VISIT ESTABLISHED PATIENT June 09, 2017 INSTRUCTIONS MEDICATIONS ADMINISTERED No Known Medications [...] in Left hand Hospitalization History Psych Eval-[facility] [place] 2014
--- OUTSIDE RECORDS SUMMARY | 2018-12-16 05:53 | XMS REPORT ---
Author Author JANNETTE LYDIA Organization [facility] Address [address] [place] [address] Care Team Providers Care Spinner Iron Name Role Phone JANNETTE LYDIA Unavailable PROBLEMS Type Condition ICD9-CM Code KZP48-WK Code Onset Dates Condition Status SNOMED Code Problem Other chronic pain G89.29 Active 10604492 Problem Essential hypertension I10 Active 66352870 Problem Severe depression F32.2 Active 894157171 Problem Coronary artery disease involving hop[place] coronary artery of hopi heart without angina pectoris I25.10 Active 8692953691987 Problem Arthritis M19.90 Active 2118468 Problem Primary osteoarthritis of right knee M17.11 Active 808940071501810 Problem Psychophysiological insomnia F51.04 Active 023876687 Problem Pain in right shoulder M25.511 Active 18403217 Problem Anxiety F41.9 Active 54963356 Problem Severe episode of recurrent major depressive disorder, without psychotic features F33.2 Active 06306928 Problem Hyperlipidemia, unspecified hyperlipidemia type E78.5 Active 69375229 ALLERGIES No Information ENCOUNTERS Encounter Location Date Diagnosis [place] [id number] [place] [address]28[address]60 Oct, [facility] [address] [place] [address] 90964- 2781 Oct, Severe episode of recurrent major depressive disorder, without psychotic features F33.2 [facility] [address] [place] [address] 37885- 5344 Oct, [place] [id number] [place] [address] 67114- 4[address] Sep, Coronary artery disease involving hop[place] coronary artery of hopi heart without angina pectoris I25.10 and Primary osteoarthritis of right knee M17.11 [facility] [id number] [place] [address] 48361- 1046 Aug, Primary osteoarthritis of right knee M17.11 ; Essential hypertension I10 ; Severe depression F32.2 ; Anxiety F41.9 ; Encounter for immunization Z23 ; Psychophysiological insomnia F51.04 ; Coronary artery disease involving [place] coronary artery of hopi heart without angina pectoris I25.10 ; Tobacco use Z72.0 ; Hyperglycemia R73.9 ; Screening cholesterol level Z13.220 and Severe episode of recurrent major depressive disorder, without psychotic features F33.2 [place] [id number] [place] [address] 81068- 0485 Aug, [place] [address] [address] May, Severe episode of recurrent major depressive disorder, without psychotic features F33.2 [place] [id number] [place] [address] 42730- 6650 May, Severe episode of recurrent major depressive disorder, without psychotic features F33.2 [place] [id number] [place] [address] 11932- 9346 May, Severe episode of recurrent major depressive disorder, without psychotic features F33.2 [place] [id number] [place] [address] 90578- 7628 May, Severe episode of recurrent major depressive disorder, without psychotic features F33.2 [place] [id number] [place] [address] 85688- 1199 Apr, Severe episode of recurrent major depressive disorder, without psychotic features F33.2 [place] [id number] [place] [address] 81553- 5623 Apr, Severe episode of recurrent major depressive disorder, without psychotic features F33.2 ; Hyperglycemia R73.9 ; Pain in right knee M25.561 ; Hyperlipidemia, unspecified hyperlipidemia type E78.5 and Psychophysiological insomnia F51.04 [facility] [address] [place] [address] 53845- 4417 Apr, Severe episode of recurrent major depressive disorder, without psychotic features F33.2 [place] [address] [place] [address] 71287- 3491 Apr, Severe episode of recurrent major depressive disorder, without psychotic features F33.2 [place] [id number] [place] [address] 81318- 8945 Nov, Pain in right shoulder M25.511 [facility] [place] [id number] [place] [address] 80539 -0808 Nov, Acute maxillary sinusitis, recurrence not specified J01.00 [facility] [place] [id number] [place] [address] 37756 -9340 07 Aug, 2017 Cellulitis L03.90 [place] [id number] [place] [address] 37742- 8754 02 Aug, 2017 Arthritis M19.90 ; Other chronic pain G89.29 and Biceps tendonitis on right M75.21 [place] [id number] [place] [address] 29400- 2952 Jun, Pain in right shoulder M25.511 [place] [id number] [place] [address] 74599- 8288 Jun, Pain in right shoulder M25.511 [place] [id number] [place] [address] 12541- 2324 Jun, Coronary artery disease involving hopi coronary artery of hopi heart without angina pectoris I25.10 ; Essential hypertension I10 ; Hyperlipidemia, unspecified hyperlipidemia type E78.5 and Anxiety F41.9 [place] [id number] [place] [address] 00708- 1705 May, Pain in right shoulder M25.511 and Biceps tendonitis, right M75.21 [place] [id number] [place] [address] 13313- 7093 May, Essential hypertension I10 ; Coronary artery disease involving hopi coronary artery of hopi heart without angina pectoris I25.10 ; Anxiety F41.9 ; Severe depression F32.2 ; Screening for diabetes mellitus (DM ) Z13.1 ; Screening for lipid disorders Z13.220 ; Pain in right shoulder M25.511 ; Bug bites, initial encounter W57.XXXA ; Arthritis M19.90 and Other chronic pain G89.29 [facility] [id number] [place] [address] 98975- 6739 May, [facility] [address] [address]476 Feb, Acute upper respiratory infection, unspecified J06.9 [facility] [address] [address] Dec, Acute non-recurrent maxillary sinusitis J01.00 and Abscessed tooth K04.7 [facility] [place] [id number] [place] [address] 47240 -7199 Sep, Pain in right knee M25.561 ; Pain in left knee M25.562 ; Other chronic pain G89.29 ; Sore throat J02.9 ; Possible exposure to STD Z20.2 and Seasonal allergic rhinitis due to pollen J30.1 [place] [id number] [place] [address] 96726- 8395 17 Aug, 2016 Arthritis M19.90 ; Coronary artery disease involving hopi coronary artery of hopi heart without angina pectoris I25.10 and Depression, unspecified depression type F32.9 [facility] [place] [id number] [place] [address] 57722 -6644 Aug, Bug bites, initial encounter W57.XXXA IMMUNIZATIONS No Known Immunizations SOCIAL HISTORY Never Assessed REASON FOR VISIT Refill request PLAN OF CARE VITAL SIGNS MEDICATIONS Medication Instructions Dosage Frequency Start Date End Date Duration Status Sertraline HCl 50 MG Orally Once a day 1 tablet 24h 30 days Active Seroquel 100 MG Orally nighlty 1 tablet May, 30 day(s) Active Xanax 0.5 MG Orally Twice a day as needed 1 tablet Apr, 28 days Active RESULTS No Results PROCEDURES No Known procedures INSTRUCTIONS MEDICATIONS ADMINISTERED No Known Medications MEDICAL (GENERAL) HISTORY Type Description Date Medical History Reported heart attack in 2014 Medical History Degenerative joint disease in knees Medical History Depression Medical History Anxiety Medical History PTSD Surgical History ganglion cyst Surgical History tonsillectomy Surgical History left knee replacement 11/2016 Surgical History Fusion of 1st and 2nd metacarpal in Left hand Hospitalization History Psych Eval-[facility] [place] 2014
--- OUTSIDE RECORDS SUMMARY | 2018-12-16 05:53 | XMS REPORT ---
Author Author JANNETTE LYDIA [facility] Address [address] [place] [address] Care Team Providers Care Glass Worker Name Role Phone JANNETTE LYDIA Unavailable PROBLEMS Type Condition ICD9-CM Code [id number] Code Onset Dates Condition Status SNOMED Code Problem Arthritis M19.90 Active 5387943 Problem Severe depression F32.2 Active 336540361 Problem Other chronic pain G89.29 Active 49357954 Problem Coronary artery disease involving qawalangin coronary artery of qawalangin heart without angina pectoris I25.10 Active 4865282514856 Problem Psychophysiological insomnia F51.04 Active 854074992 Problem Severe episode of recurrent major depressive disorder, without psychotic features F33.2 Active 88966572 Problem Anxiety F41.9 Active 26652876 Problem Essential hypertension I10 Active 93575697 Problem Hyperlipidemia, unspecified hyperlipidemia type E78.5 Active 97855682 Problem Pain in right shoulder M25.511 Active 58429933 ALLERGIES Substance Reaction Event Type Date Status Codeine Sulfate headache Drug Allergy May, Active ENCOUNTERS Encounter Location Date Diagnosis [place] [address] [place] [address]29[address] May, Severe episode of recurrent major depressive disorder, without psychotic features F33.2 [facility] [address] [place] [address] 03086- 2160 May, Severe episode of recurrent major depressive disorder, without psychotic features F33.2 [facility] [address] [place] [address] 24947- 8275 May, Severe episode of recurrent major depressive disorder, without psychotic features F33.2 [facility] [address] [place] [address] 06462- 5181 May, Severe episode of recurrent major depressive disorder, without psychotic features F33.2 [place] [address] [place] [id number] [place] [address] 09813- 5830 Apr, Severe episode of recurrent major depressive disorder, without psychotic features F33.2 [place] [address] [place] [id number] [place] [address] 77031- 1063 Apr, Severe episode of recurrent major depressive disorder, without psychotic features F33.2 ; Hyperglycemia R73.9 ; Pain in right knee M25.561 ; Hyperlipidemia, unspecified hyperlipidemia type E78.5 and Psychophysiological insomnia F51.04 [place] [address] [place] [id number] [place] [address] 30633- 0581 Apr, Severe episode of recurrent major depressive disorder, without psychotic features F33.2 [place] [address] [place] [id number] [place] [address] 85037- 2654 Apr, Severe episode of recurrent major depressive disorder, without psychotic features F33.2 [place] [address] [address] Nov, Pain in right shoulder M25.511 [facility] [address] [address] Nov, Acute maxillary sinusitis, recurrence not specified J01.00 [facility] [address] [place] [id number] [place] [address] 0[address] Aug, Cellulitis L03.90 [place] [address] [address]50[address] Aug, Arthritis M19.90 ; Other chronic pain G89.29 and Biceps tendonitis on right M75.21 [place] [address] 58284[address]32 Jun, Pain in right shoulder M25.511 [place] [address] [place] [id number] [place] [address] 10461- 6266 Jun, Pain in right shoulder M25.511 [place] [address] 40175[address] Jun, Coronary artery disease involving qawalangin coronary artery of q[place] heart without angina pectoris I25.10 ; Essential hypertension I10 ; Hyperlipidemia, unspecified hyperlipidemia type E78.5 and Anxiety F41.9 [place] [id number] [place] [address] 81258- 9080 May, Pain in right shoulder M25.511 and Biceps tendonitis, right M75.[address] [address] 13 May, 2017 Essential hypertension I10 ; Coronary artery disease involving qawalangin coronary artery of q[place]alangin heart without angina pectoris I25.10 ; Anxiety F41.9 ; Severe depression F32.2 ; Screening for diabetes mellitus (DM ) Z13.1 ; Screening for lipid disorders Z13.220 ; Pain in right shoulder M25.511 ; Bug bites, initial encounter W57.XXXA ; Arthritis M19.90 and Other chronic pain G89.[address] [address] May, [facility] [address] [address] Feb, Acute upper respiratory infection, unspecified J06.9 [facility] [address] [address] 08 Dec, 2016 Acute non-recurrent maxillary sinusitis J01.00 and Abscessed tooth K04.7 [facility] [address] [address] 14 Sep, 2016 Pain in right knee M25.561 ; Pain in left knee M25.562 ; Other chronic pain G89.29 ; Sore throat J02.9 ; Possible exposure to STD Z20.2 and Seasonal allergic rhinitis due to pollen J30.[address] [address] 17 Aug, 2016 Arthritis M19.90 ; Coronary artery disease involving q[place]ang[place] coronary artery of [place] heart without angina pectoris I25.10 and Depression, unspecified depression type F32.9 [facility] [address] [facility] [id number] [place] [address] Aug, Bug bites, initial encounter W57.XXXA IMMUNIZATIONS No Known Immunizations SOCIAL HISTORY Never Assessed REASON FOR VISIT f/jarek Cuello RN PLAN OF CARE Activity Details Follow Up 4 Weeks Reason: VITAL SIGNS Height 66 in 2018-05-28 Weight 192 lbs 2018-05-28 Heart Rate 90 bpm 2018-05-28 Respiratory Rate 20 2018-05-28 BMI 30.99 kg/m2 2018-05-28 Blood pressure systolic 144 mmHg 2018-05-28 Blood pressure diastolic 90 mmHg 2018-05-28 MEDICATIONS Medication Instructions Dosage Frequency Start Date End Date Duration Status Tramadol HCl 50 mg Orally BID PRN 1 tablet as needed 28 days Active Cyanocobalamin 1000 MCG Orally Once a day 1 tablet 24h Not-Taking Sertraline HCl 50 MG Orally Once a day 1 tablet 24h 30 days Active Xanax 0.5 MG Orally Twice a day as needed 1 tablet Apr, 30 days Active [place] 3 1000 MG Orally Once a day 1 capsule 24h Not-Taking Meloxicam 15 MG Orally Once a day 1 tablet 24h Not-Taking Tylenol 8 Hour 650 MG Orally every 8 hrs 2 tablets as needed 8h Not-Taking Seroquel 100 MG Orally Once a day 0.5 tablet at night and when tolerate take full tab nightly 24h May, 30 day(s) Active Hydrocodone-Acetaminophen 10-325 MG Orally every 6 hrs 1 tablet as needed 6h Not-Taking Multivitamin Adult - Not-Taking Metoprolol Tartrate 50 mg Orally one time 1 tabet Not-Taking Seroquel 50 MG Orally Once a day 0.5-1 tablet 24h May, 30 day(s ) Active Ascorbic Acid 100 MG Orally Once a day 1 tablet 24h Not-Taking Crestor 40 mg Orally Once a day 1 tablet 24h 30 days Not-Taking RESULTS No Results PROCEDURES Procedure Date Ordered Result Body Site [facility] VISIT ESTABLISHED PATIENT May 28, 2018 INSTRUCTIONS MEDICATIONS ADMINISTERED No Known Medications MEDICAL (GENERAL) HISTORY Type Description Date Medical History Reported heart attack in 2014 Medical History Degenerative joint disease in knees Medical History Depression Medical History Anxiety Medical History PTSD Surgical History ganglion cyst Surgical History tonsillectomy Surgical History left knee replacement 11/2016 Surgical History Fusion of 1st and 2nd metacarpal in Left hand Hospitalization History Psych Eval[facility] [place] 2015
--- OUTSIDE RECORDS SUMMARY | 2018-12-16 05:53 | XMS REPORT ---
Author Author JANNETTE LYDIA Organization [facility] Address [address] [place] [address] Care Team Providers Care Feed Handler Name Role Phone JANNETTE LYDIA Unavailable PROBLEMS Type Condition ICD9-CM Code SOH06-WT Code Onset Dates Condition Status SNOMED Code Problem Other chronic pain G89.29 Active 10688489 Problem Essential hypertension I10 Active 49965681 Problem Severe depression F32.2 Active 052952195 Problem Coronary artery disease involving [place] coronary artery of [place]it[place] heart without angina pectoris I25.10 Active 1155741684804 Problem Arthritis M19.90 Active 6059767 Problem Primary osteoarthritis of right knee M17.11 Active 289924129446889 Problem Psychophysiological insomnia F51.04 Active 875231714 Problem Pain in right shoulder M25.511 Active 25645268 Problem Anxiety F41.9 Active 04299855 Problem Severe episode of recurrent major depressive disorder, without psychotic features F33.2 Active 29742860 Problem Hyperlipidemia, unspecified hyperlipidemia type E78.5 Active 60490902 ALLERGIES No Information ENCOUNTERS Encounter Location Date Diagnosis [place] [address] [place] [address] 66298- [address]88 Oct, [facility] [address] [place] [address] 70461- 8288 Oct, Severe episode of recurrent major depressive disorder, without psychotic features F33.2 [facility] [address] [place] [address] 46772- 2039 Oct, [place] [address] [place] [id number] [place] [address] 32889- 1571 Sep, Coronary artery disease involving chitim[place] coronary artery of [place] heart without angina pectoris I25.10 and Primary osteoarthritis of right knee M17.11 [facility] [address] [place] [id number] [place] [address] 91324- 0477 Aug, Primary osteoarthritis of right knee M17.11 ; Essential hypertension I10 ; Severe depression F32.2 ; Anxiety F41.9 ; Encounter for immunization Z23 ; Psychophysiological insomnia F51.04 ; Coronary artery disease involving chitim[place] coronary artery of chit[place] heart without angina pectoris I25.10 ; Tobacco use Z72.0 ; Hyperglycemia R73.9 ; Screening cholesterol level Z13.220 and Severe episode of recurrent major depressive disorder, without psychotic features F33.2 [place] [address] [place] [id number] [place] [address] 59696- 7898 Aug, [place] [address] [address] May, Severe episode of recurrent major depressive disorder, without psychotic features F33.2 [place] [address] [place] [id number] [place] [address] 45593- 0118 May, Severe episode of recurrent major depressive disorder, without psychotic features F33.2 [place] [address] [place] [id number] [place] [address] 24757- 7492 May, Severe episode of recurrent major depressive disorder, without psychotic features F33.2 [place] [address] [place] [id number] [place] [address] 96653- 6267 May, Severe episode of recurrent major depressive disorder, without psychotic features F33.2 [place] [address] [place] [id number] [place] [address] 38531- 6921 Apr, Severe episode of recurrent major depressive disorder, without psychotic features F33.2 [place] [address] [place] [id number] [place] [address] 27165- 6578 Apr, Severe episode of recurrent major depressive disorder, without psychotic features F33.2 ; Hyperglycemia R73.9 ; Pain in right knee M25.561 ; Hyperlipidemia, unspecified hyperlipidemia type E78.5 and Psychophysiological insomnia F51.04 [facility] [address] [place] [address] 47287- 0417 Apr, Severe episode of recurrent major depressive disorder, without psychotic features F33.2 [place] [address] [place] [address] 24132- 3409 Apr, Severe episode of recurrent major depressive disorder, without psychotic features F33.2 [place] [address] [place] [id number] [place] [address] 81653- 5383 Nov, Pain in right shoulder M25.511 [facility] [place] [address] [place] [id number] [place] [address]74 [address] Nov, Acute maxillary sinusitis, recurrence not specified J01.00 [facility] [place] [address] [place] [id number] [place] [address]19 [address] 07 Aug, 2017 Cellulitis L03.90 [place] [address] [place] [id number] [place] [address] 81370- 8027 02 Aug, 2017 Arthritis M19.90 ; Other chronic pain G89.29 and Biceps tendonitis on right M75.21 [place] [address] [place] [id number] [place] [address] 18038- 4125 Jun, Pain in right shoulder M25.511 [place] [address] [place] [id number] [place] [address] 67478- 8686 Jun, Pain in right shoulder M25.511 [place] [address] [place] [id number] [place] [address] 02164- 8531 Jun, Coronary artery disease involving chitimacha coronary artery of chitimacha heart without angina pectoris I25.10 ; Essential hypertension I10 ; Hyperlipidemia, unspecified hyperlipidemia type E78.5 and Anxiety F41.9 [place] [address] [place] [id number] [place] [address] 69922- 3982 May, Pain in right shoulder M25.511 and Biceps tendonitis, right M75.21 [place] [address] [place] [id number] [place] [address] 15834- 8853 May, Essential hypertension I10 ; Coronary artery disease involving chitimacha coronary artery of chitimacha heart without angina pectoris I25.10 ; Anxiety F41.9 ; Severe depression F32.2 ; Screening for diabetes mellitus (DM ) Z13.1 ; Screening for lipid disorders Z13.220 ; Pain in right shoulder M25.511 ; Bug bites, initial encounter W57.XXXA ; Arthritis M19.90 and Other chronic pain G89.29 [facility] [address] [place] [address] 29505- 0916 May, [facility] [address] [address] Feb, Acute upper respiratory infection, unspecified J06.9 [facility] [address] [address] Dec, Acute non-recurrent maxillary sinusitis J01.00 and Abscessed tooth K04.7 [facility] [place] [id number] [place] [address] 8[address]86 -3048 Sep, Pain in right knee M25.561 ; Pain in left knee M25.562 ; Other chronic pain G89.29 ; Sore throat J02.9 ; Possible exposure to STD Z20.2 and Seasonal allergic rhinitis due to pollen J30.1 [place] [id number] [place] [address] 49650- 3917 17 Aug, 2016 Arthritis M19.90 ; Coronary artery disease involving chitimacha coronary artery of chitimacha heart without angina pectoris I25.10 and Depression, unspecified depression type F32.9 [facility] [place] [id number] [place] [address] 34[address] -[address]99 Aug, Bug bites, initial encounter W57.XXXA IMMUNIZATIONS No Known Immunizations SOCIAL HISTORY Never Assessed REASON FOR VISIT Refill request PLAN OF CARE VITAL SIGNS MEDICATIONS Unknown [...] in Left hand Hospitalization History Psych Eval[facility] [place] 2014
--- OUTSIDE RECORDS SUMMARY | 2018-12-16 05:53 | XMS REPORT ---
Author Author DEBBIE GILBERT Organization [facility] [place] Address [address] [place] [address] Care Team Providers Care Reverberatory Furnace Operator Name Role Phone DEBBIE GILBETR Unavailable PROBLEMS Type Condition ICD9-CM Code KPH66-PO Code Onset Dates Condition Status SNOMED Code Problem Arthritis M19.90 Active 1397121 Problem Severe depression F32.2 Active 401685835 Problem Other chronic pain G89.29 Active 84157436 Problem Coronary artery disease involving [place] coronary artery of [place] heart without angina pectoris I25.10 Active 8308355544479 Problem Psychophysiological insomnia F51.04 Active 319479959 Problem Severe episode of recurrent major depressive disorder, without psychotic features F33.2 Active 84969162 Problem Anxiety F41.9 Active 30831101 Problem Essential hypertension I10 Active 96970832 Problem Hyperlipidemia, unspecified hyperlipidemia type E78.5 Active 33573371 Problem Pain in right shoulder M25.511 Active 97778805 ALLERGIES Substance Reaction Event Type Date Status Codeine Sulfate headache Drug Allergy Apr, Active ENCOUNTERS Encounter Location Date Diagnosis [place] [address] [place] [address] 88328- 5828 May, Severe episode of recurrent major depressive disorder, without psychotic features F33.2 [facility] [place] [address] [place] [address] 31164- 5810 May, Severe episode of recurrent major depressive disorder, without psychotic features F33.2 [facility] [place] [address] [place] [address] 24300- 3162 May, Severe episode of recurrent major depressive disorder, without psychotic features F33.2 [place] [address] [place] [address] 76827- 9475 May, Severe episode of recurrent major depressive disorder, without psychotic features F33.2 [place] [address] [place] [id number] [place] [address] 49729- 4108 Apr, Severe episode of recurrent major depressive disorder, without psychotic features F33.2 [place] [address] [place] [id number] [place] [address] 31243- 9597 Apr, Severe episode of recurrent major depressive disorder, without psychotic features F33.2 ; Hyperglycemia R73.9 ; Pain in right knee M25.561 ; Hyperlipidemia, unspecified hyperlipidemia type E78.5 and Psychophysiological insomnia F51.04 [place] [address] [place] [id number] [place] [address] 97977- 4774 Apr, Severe episode of recurrent major depressive disorder, without psychotic features F33.2 [place] [address] [place] [id number] [place] [address] 39698- 0135 Apr, Severe episode of recurrent major depressive disorder, without psychotic features F33.2 [place] [address] [place] [id number] [place] [address] 07728- 4769 Nov, Pain in right shoulder M25.511 [facility] [address] [place] [id number] [place] [address] 50009 -7692 Nov, Acute maxillary sinusitis, recurrence not specified J01.00 [facility] [address] [place] [id number] [place] [address] 96706 -8939 07 Aug, 2017 Cellulitis L03.90 [place] [address] [place] [id number] [place] [address] 26365- 7497 Aug, Arthritis M19.90 ; Other chronic pain G89.29 and Biceps tendonitis on right M75.21 [place] [address] [place] [id number] [place] [address] 62210- 6316 Jun, Pain in right shoulder M25.511 [place] [address] [place] [id number] [place] [address] 53617- 6494 04 Jun, 2017 Pain in right shoulder M25.511 [place] [address] [place] [id number] [place] [address] 85414- 2129 Jun, Coronary artery disease involving [place] coronary artery of [place] heart without angina pectoris I25.10 ; Essential hypertension I10 ; Hyperlipidemia, unspecified hyperlipidemia type E78.5 and Anxiety F41.[address] 85269- 95[address] May, Pain in right shoulder M25.511 and Biceps tendonitis, right M75.[address] 96374- 1673 May, Essential hypertension I10 ; Coronary artery disease involving [place] coronary artery of [place] heart without angina pectoris I25.10 ; Anxiety F41.9 ; Severe depression F32.2 ; Screening for diabetes mellitus (DM ) Z13.1 ; Screening for lipid disorders Z13.220 ; Pain in right shoulder M25.511 ; Bug bites, initial encounter W57.XXXA ; Arthritis M19.90 and Other chronic pain G89.[address] 10241- 3247 May, [facility] [address] [address] Feb, Acute upper respiratory infection, unspecified J06.9 [facility] [address] [address] 08 Dec, 2016 Acute non-recurrent maxillary sinusitis J01.00 and Abscessed tooth K04.7 [facility] [address] [address] Sep, Pain in right knee M25.561 ; Pain in left knee M25.562 ; Other chronic pain G89.29 ; Sore throat J02.9 ; Possible exposure to STD Z20.2 and Seasonal allergic rhinitis due to pollen J30.[address] 05639- [address] 17 Aug, 2016 Arthritis M19.90 ; Coronary artery disease involving [place] coronary artery of [place] heart without angina pectoris I25.10 and Depression, unspecified depression type F32.9 [facility] [address] [facility] [id number] [address] Aug, Bug bites, initial encounter W57.XXXA IMMUNIZATIONS No Known Immunizations SOCIAL HISTORY Never Assessed REASON FOR VISIT Medication Kamlesh Baker RN PLAN OF CARE Activity Details Follow Up 6 Months with Bekah for [facility] review labs Reason: Pending Test A1C (IN HOUSE) Pending Test TSH w/ FREE T4 Pending Test CMP Pending Test CBC VITAL SIGNS Height 66 in 2018-05-06 Weight 188 lbs 2018-05-06 Temperature 98.0 degrees Fahrenheit 2018-05-06 Heart Rate 102 bpm 2018-05-06 Respiratory Rate 24 2018-05-06 BMI 30.34 kg/m2 2018-05-06 Blood pressure systolic 142 mmHg 2018-05-06 Blood pressure diastolic 88 mmHg 2018-05-06 MEDICATIONS Medication Instructions Dosage Frequency Start Date End Date Duration Status Tramadol HCl 50 mg Orally BID PRN 1 tablet as needed 28 days Not- Taking Tylenol 8 Hour 650 MG Orally every 8 hrs 2 tablets as needed 8h Active Xanax 0.5 MG Orally Twice a day as needed 1 tablet Apr, 30 days Active Hydrocodone-Acetaminophen 10-325 MG Orally every 6 hrs 1 tablet as needed 6h Not-Taking Meloxicam 15 MG Orally Once a day 1 tablet 24h Not-Taking Crestor 40 mg Orally Once a day 1 tablet 24h 30 days Not-Taking [place] 3 1000 MG Orally Once a day 1 capsule 24h Not-Taking Ascorbic Acid 100 MG Orally Once a day 1 tablet 24h Not-Taking Cetirizine HCl 10 mg Orally Once a day 1 tablet 24h Sep, Not -Taking Cyanocobalamin 1000 MCG Orally Once a day 1 tablet 24h Not-Taking Sertraline HCl 50 MG Orally Once a day 1 tablet 24h 30 days Active Metoprolol Tartrate 50 mg Orally one time 1 tabet Not-Taking Multivitamin Adult - Not-Taking RESULTS No Results PROCEDURES Procedure Date Ordered Result Body Site GLYCATED HEMOGLOBIN TEST May 06, 2018 LAB NOT BILLED BY [facility] May 06, 2018 [facility] VISIT ESTABLISHED PATIENT May 06, 2018 INSTRUCTIONS MEDICATIONS ADMINISTERED No Known Medications MEDICAL (GENERAL) HISTORY Type Description Date Medical History Reported heart attack in 2015 Medical History Degenerative joint disease in knees Medical History Depression Medical History Anxiety Medical History PTSD Surgical History ganglion cyst Surgical History tonsillectomy Surgical History left knee replacement 11/2016 Surgical History Fusion of 1st and 2nd metacarpal in Left hand Hospitalization History Psych Eval[facility] [place] 2015
--- OUTSIDE RECORDS SUMMARY | 2018-12-16 05:53 | XMS REPORT ---
Author Author DEBBIE GILBERT Organization [facility] Address [address] [place] [address] Care Team Providers Care Human Anatomy Teacher Name Role Phone DEBBIE GILBERT Unavailable PROBLEMS Type Condition ICD9-CM Code DSE40-NS Code Onset Dates Condition Status SNOMED Code Problem Other chronic pain G89.29 Active 33131906 Problem Essential hypertension I10 Active 93383321 Problem Severe depression F32.2 Active 411641354 Problem Coronary artery disease involving mi'kmaq coronary artery of mi'kmaq heart without angina pectoris I25.10 Active 6467841422738 Problem Arthritis M19.90 Active 1383142 Problem Primary osteoarthritis of right knee M17.11 Active 542884559768805 Problem Psychophysiological insomnia F51.04 Active 802698072 Problem Pain in right shoulder M25.511 Active 77788230 Problem Anxiety F41.9 Active 38984798 Problem Severe episode of recurrent major depressive disorder, without psychotic features F33.2 Active 76302559 Problem Hyperlipidemia, unspecified hyperlipidemia type E78.5 Active 10709950 ALLERGIES No Information ENCOUNTERS Encounter Location Date Diagnosis [facility] [id number] [address] Sep, Coronary artery disease involving mi'kmaq coronary artery of mi'kmaq heart without angina pectoris I25.10 and Primary osteoarthritis of right knee M17.11 [facility] [id number] [address] Aug, Primary osteoarthritis of right knee M17.11 ; Essential hypertension I10 ; Severe depression F32.2 ; Anxiety F41.9 ; Encounter for immunization Z23 ; Psychophysiological insomnia F51.04 ; Coronary artery disease involving mi'kmaq coronary artery of mi'kmaq heart without angina pectoris I25.10 ; Tobacco use Z72.0 ; Hyperglycemia R73.9 ; Screening cholesterol level Z13.220 and Severe episode of recurrent major depressive disorder, without psychotic features F33.2 [address] [id number] [address] Aug, [facility] [id number] [place] [address] May, Severe episode of recurrent major depressive disorder, without psychotic features F33.2 [facility] [id number] [place] [address] 93349- 2246 May, Severe episode of recurrent major depressive disorder, without psychotic features F33.2 [facility] [id number] [place] [address]38- 9755 May, Severe episode of recurrent major depressive disorder, without psychotic features F33.2 [place] [id number] [place] [address]88[address] 8[address] May, Severe episode of recurrent major depressive disorder, without psychotic features F33.2 [place] [id number] [place] [address] 22525- 7892 Apr, Severe episode of recurrent major depressive disorder, without psychotic features F33.2 [facility] [id number] [place] [address] 24607- 8191 Apr, Severe episode of recurrent major depressive disorder, without psychotic features F33.2 ; Hyperglycemia R73.9 ; Pain in right knee M25.561 ; Hyperlipidemia, unspecified hyperlipidemia type E78.5 and Psychophysiological insomnia F51.04 [facility] [address] [place] [address] 69283- 4376 Apr, Severe episode of recurrent major depressive disorder, without psychotic features F33.2 [facility] [address] [place] [address] 00309- 1470 Apr, Severe episode of recurrent major depressive disorder, without psychotic features F33.2 [facility] [address] [place] [address] 17959- 5614 Nov, Pain in right shoulder M25.511 [facility] [place] [facility] [id number] [place] [address]167 [address] Nov, Acute maxillary sinusitis, recurrence not specified J01.00 [facility] [id number] [place] [address]85 [address]8617 Aug, Cellulitis L03.90 [place] [id number] [place] [address] 08960- 5683 Aug, Arthritis M19.90 ; Other chronic pain G89.29 and Biceps tendonitis on right M75.21 [place] [address] [address] [address] Jun, Pain in right shoulder M25.511 [address] [address] 09894- 9739 Jun, Pain in right shoulder M25.511 [place] [id number] [place] [address] 73293- 8172 Jun, Coronary artery disease involving mi'kmaq coronary artery of mi'kmaq heart without angina pectoris I25.10 ; Essential hypertension I10 ; Hyperlipidemia, unspecified hyperlipidemia type E78.5 and Anxiety F41.9 [place] [address] 09272- 8956 May, Pain in right shoulder M25.511 and Biceps tendonitis, right M75.21 [place] [id number] [place] [address] 10433- 9150 May, Essential hypertension I10 ; Coronary artery disease involving mi'kmaq coronary artery of mi'kmaq heart without angina pectoris I25.10 ; Anxiety F41.9 ; Severe depression F32.2 ; Screening for diabetes mellitus (DM ) Z13.1 ; Screening for lipid disorders Z13.220 ; Pain in right shoulder M25.511 ; Bug bites, initial encounter W57.XXXA ; Arthritis M19.90 and Other chronic pain G89.29 [place] [id number] [place] [address] 99951- 2511 May, [facility] [id number] [place] [address]17 [address]77 Feb, Acute upper respiratory infection, unspecified J06.9 [facility] [address] [address] Dec, Acute non-recurrent maxillary sinusitis J01.00 and Abscessed tooth K04.7 [facility] [address] [place] [address] [place] [address] 68153 [address]6910 Sep, Pain in right knee M25.561 ; Pain in left knee M25.562 ; Other chronic pain G89.29 ; Sore throat J02.9 ; Possible exposure to STD Z20.2 and Seasonal allergic rhinitis due to pollen J30.1 [facility] [address] [place] [id number] [place] [address] 03295[address]14 Aug, Arthritis M19.90 ; Coronary artery disease involving mi'kmaq coronary artery of mi'kmaq heart without angina pectoris I25.10 and Depression, unspecified depression type F32.9 [facility] [place] [address] [place] [address] Aug, Bug bites, initial encounter W57.XXXA IMMUNIZATIONS No Known Immunizations SOCIAL HISTORY Never Assessed REASON FOR VISIT PLAN OF CARE VITAL SIGNS MEDICATIONS Medication Instructions Dosage Frequency Start Date End Date Duration Status Lipitor 40 MG Orally Once a day 1 tablet 24h Sep, 30 day(s) Active RESULTS No Results PROCEDURES No Known [...] in Left hand Hospitalization History Psych Eval[facility] [place] 2014
--- OUTSIDE RECORDS SUMMARY | 2018-12-16 05:53 | XMS REPORT ---
Author Author JANNETTE LYDIA Organization [facility] Address [address] [place] [address] Care Team Providers Care Rn Oncology Clinical Name Role Phone JANNETTE LYDIA Unavailable PROBLEMS Type Condition ICD9-CM Code UVD51-SD Code Onset Dates Condition Status SNOMED Code Problem Arthritis M19.90 Active 8667776 Problem Severe depression F32.2 Active 932189870 Problem Other chronic pain G89.29 Active 80772770 Problem Coronary artery disease involving venetie ira coronary artery of venetie ira heart without angina pectoris I25.10 Active 7452689210187 Problem Psychophysiological insomnia F51.04 Active 450021500 Problem Severe episode of recurrent major depressive disorder, without psychotic features F33.2 Active 36789209 Problem Anxiety F41.9 Active 86426237 Problem Essential hypertension I10 Active 09048062 Problem Hyperlipidemia, unspecified hyperlipidemia type E78.5 Active 24295137 Problem Pain in right shoulder M25.511 Active 28865571 ALLERGIES No Information ENCOUNTERS Encounter Location Date Diagnosis [facility] [address] [place] [address] Aug, [facility] [id number] [place] [address] 78716- 5265 Aug, [facility] [id number] [place] [address] 05460- [address] May, Severe episode of recurrent major depressive disorder, without psychotic features F33.2 [facility] [id number] [place] [address] 00866- 9867 May, Severe episode of recurrent major depressive disorder, without psychotic features F33.2 [facility] [address] [place] [address] 64972- 0462 May, Severe episode of recurrent major depressive disorder, without psychotic features F33.2 [place] [id number] [place] [address] 28853- 7797 May, Severe episode of recurrent major depressive disorder, without psychotic features F33.2 [place] [id number] [place] [address] 12796- 2852 Apr, Severe episode of recurrent major depressive disorder, without psychotic features F33.2 [place] [id number] [place] [address] 73594- 1627 Apr, Severe episode of recurrent major depressive disorder, without psychotic features F33.2 ; Hyperglycemia R73.9 ; Pain in right knee M25.561 ; Hyperlipidemia, unspecified hyperlipidemia type E78.5 and Psychophysiological insomnia F51.04 [place] [id number] [place] [address] 18466- 0704 Apr, Severe episode of recurrent major depressive disorder, without psychotic features F33.2 [place] [id number] [place] [address] 09364- 3398 Apr, Severe episode of recurrent major depressive disorder, without psychotic features F33.2 [place] [id number] [place] [address] 71244- 4115 Nov, Pain in right shoulder M25.511 [facility] WALK IN [facility] [id number] [place] [address]244 [address]91 Nov, Acute maxillary sinusitis, recurrence not specified J01.00 [facility] [id number] [place] [address] 05692 -2803 Aug, Cellulitis L03.90 [place] [id number] [place] [address] 72892- 2222 Aug, Arthritis M19.90 ; Other chronic pain G89.29 and Biceps tendonitis on right M75.21 [place] [id number] [place] [address] 15456- 5193 Jun, Pain in right shoulder M25.511 [place] [address] 86422- 9394 Jun, Pain in right shoulder M25.[address] [address]75- [address] Jun, Coronary artery disease involving venetie ira coronary artery of venetie ira heart without angina pectoris I25.10 ; Essential hypertension I10 ; Hyperlipidemia, unspecified hyperlipidemia type E78.5 and Anxiety F41.[address] [address]- [address] May, Pain in right shoulder M25.511 and Biceps tendonitis, right M75.[address] 40451- 2416 May, Essential hypertension I10 ; Coronary artery disease involving venetie ira coronary artery of venetie ira heart without angina pectoris I25.10 ; Anxiety F41.9 ; Severe depression F32.2 ; Screening for diabetes mellitus (DM ) Z13.1 ; Screening for lipid disorders Z13.220 ; Pain in right shoulder M25.511 ; Bug bites, initial encounter W57.XXXA ; Arthritis M19.90 and Other chronic pain G89.[address] [address]47- [address]01 May, [facility] W[facility] [address] [address] Feb, Acute upper respiratory infection, unspecified J06.9 [facility] [address] 63913 -[address]85 Dec, Acute non-recurrent maxillary sinusitis J01.00 and Abscessed tooth K04.7 [facility] [address] [address] 14 Sep, 2016 Pain in right knee M25.561 ; Pain in left knee M25.562 ; Other chronic pain G89.29 ; Sore throat J02.9 ; Possible exposure to STD Z20.2 and Seasonal allergic rhinitis due to pollen J30.1 [place] [address] [place] [address] Aug, Arthritis M19.90 ; Coronary artery disease involving venetie ira coronary artery of venetie ira heart without angina pectoris I25.10 and Depression, unspecified depression type F32.9 [facility] [facility] [address] [facility] [id number] [place] [address] Aug, Bug bites, initial encounter W57.XXXA IMMUNIZATIONS No Known Immunizations SOCIAL HISTORY Never Assessed REASON FOR VISIT Medication refill request PLAN OF CARE VITAL SIGNS MEDICATIONS [...] Left hand Hospitalization History Psych Eval[facility] [place] 2014
--- OUTSIDE RECORDS SUMMARY | 2018-12-16 05:53 | XMS REPORT ---
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 Active 1541417273261 Problem Arthritis M19.90 Active 3148994 Problem Primary osteoarthritis of right knee M17.11 Active 504531646215735 Problem Psychophysiological insomnia F51.04 Active 696556943 Problem Pain in right shoulder M25.511 Active 82115829 Problem Anxiety F41.9 Active 92805847 Problem Severe episode of recurrent major depressive disorder, without psychotic features F33.2 Active 35924884 Problem Hyperlipidemia, unspecified hyperlipidemia type E78.5 Active 86521711 ALLERGIES Substance Reaction Event Type Date Status Codeine Sulfate headache Drug Allergy Aug, Active ENCOUNTERS Encounter Location Date Diagnosis [facility] [id number] [address] Aug, Primary osteoarthritis of right knee M17.11 ; Essential hypertension I10 ; Severe depression F32.2 ; Anxiety F41.9 ; Encounter for immunization Z23 ; Psychophysiological insomnia F51.04 ; 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 pectoris I25.10 ; Tobacco use Z72.0 ; Hyperglycemia R73.9 ; Screening cholesterol level Z13.220 and Severe episode of recurrent major depressive disorder, without psychotic features F33.2 [facility] [id number] [address] Aug, [facility] [id number] [place] [address] 72944- 7624 May, Severe episode of recurrent major depressive disorder, without psychotic features F33.2 [place] [id number] [place] [address] 69172- 3676 May, Severe episode of recurrent major depressive disorder, without psychotic features F33.2 [place] [id number] [place] [address] 67393- 6758 May, Severe episode of recurrent major depressive disorder, without psychotic features F33.2 [place] [id number] [place] [address] 99349- 8838 May, Severe episode of recurrent major depressive disorder, without psychotic features F33.2 [place] [id number] [place] [address] 07161- 1140 Apr, Severe episode of recurrent major depressive disorder, without psychotic features F33.2 [place] [id number] [place] [address] 09394- 7384 Apr, Severe episode of recurrent major depressive disorder, without psychotic features F33.2 ; Hyperglycemia R73.9 ; Pain in right knee M25.561 ; Hyperlipidemia, unspecified hyperlipidemia type E78.5 and Psychophysiological insomnia F51.04 [place] [id number] [place] [address] 71488- 3388 Apr, Severe episode of recurrent major depressive disorder, without psychotic features F33.2 [place] [id number] [place] [address] 01297- 1925 Apr, Severe episode of recurrent major depressive disorder, without psychotic features F33.2 [place] [id number] [place] [address] 73178- 3491 Nov, Pain in right shoulder M25.511 [facility] [id number] [place] [address] 05949 -2273 Nov, Acute maxillary sinusitis, recurrence not specified J01.00 [facility] [id number] [place] [address] 82128 -9325 Aug, Cellulitis L03.90 [place] [id number] [place] [address] 52188- 3592 Aug, Arthritis M19.90 ; Other chronic pain G89.29 and Biceps tendonitis on right M75.21 [place] [id number] [place] [address] 44226- 0068 Jun, Pain in right shoulder M25.511 [place] [address] [address]98- 3766 Jun, Pain in right shoulder M25.511 [place] [address] 62716- 7580 Jun, 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 pectoris I25.10 ; Essential hypertension I10 ; Hyperlipidemia, unspecified hyperlipidemia type E78.5 and Anxiety F41.[address] [address]- [address] May, Pain in right shoulder M25.511 and Biceps tendonitis, right M75.21 [place] [id number] [place] [address] 17432- 9751 May, Essential hypertension I10 ; 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 pectoris I25.10 ; Anxiety F41.9 ; Severe depression F32.2 ; Screening for diabetes mellitus (DM ) Z13.1 ; Screening for lipid disorders Z13.220 ; Pain in right shoulder M25.511 ; Bug bites, initial encounter W57.XXXA ; Arthritis M19.90 and Other chronic pain G89.29 [place] [id number] [place] [address] 06263- 0690 May, [facility] [id number] [place] [address] 71853 -2630 Feb, Acute upper respiratory infection, unspecified J06.9 [facility] [address] [place], [place] [id number] [place] [address] 00447 -6919 08 Dec, 2016 Acute non-recurrent maxillary sinusitis J01.00 and Abscessed tooth K04.7 [facility] [id number] [address] 14 Sep, 2016 Pain in right knee M25.561 ; Pain in left knee M25.562 ; Other chronic pain G89.29 ; Sore throat J02.9 ; Possible exposure to STD Z20.2 and Seasonal allergic rhinitis due to pollen J30.1 [facility] [address] [address] 17 Aug, 2016 Arthritis M19.90 ; 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 pectoris I25.10 and Depression, unspecified depression type F32.9 [facility] WALK IN [facility] [id number] [address] Aug, Bug bites, initial encounter W57.XXXA IMMUNIZATIONS Vaccine Route Administration Date Status FLULAVAL QUAD 0.5ML (6 MO & UP) 2018 IM Intramuscular Sep 08, 2018 Administered SOCIAL HISTORY Never Assessed REASON FOR VISIT medication mgmt--tcuppettRN, -c/o rash on face and under arms intermittenty, - Needing ortho referral for right knee replacement PLAN OF CARE Activity Details Follow Up 2 Months with Bekah f/u SEMAJ Reason: Pending Test TSH w/ FREE T4 Pending Test LIPID PANEL Pending Test CMP Pending Test CBC Pending Test A1C VITAL SIGNS Height 66 in 2018-09-08 Weight 188.4 lbs 2018-09-08 Temperature 99.2 degrees Fahrenheit 2018-09-08 Heart Rate 92 bpm 2018-09-08 Respiratory Rate 20 2018-09-08 BMI 30.41 kg/m2 2018-09-08 Blood pressure systolic 150 mmHg 2018-09-08 Blood pressure diastolic 88 mmHg 2018-09-08 MEDICATIONS Medication Instructions Dosage Frequency Start Date End Date Duration Status Crestor 40 mg Orally Once a day 1 tablet 24h 30 days Not-Taking Xanax 0.5 MG Orally Twice a day as needed 1 tablet Apr, 28 days Active Sertraline HCl 50 MG Orally Once a day 1 tablet 24h 30 days Active Seroquel 100 MG Orally Once a day 0.5 tablet at night and when tolerate take full tab nightly 24h May, 30 day(s) Active RESULTS No Results PROCEDURES Procedure Date Ordered Result Body Site LAB NOT BILLED BY [facility] Sep 08, 2018 FLULAVAL QUAD 0.5ML (6 MO & UP) 2017Sep 08, 2018 [facility] VISIT ESTABLISHED PATIENT Sep 08, 2018 SINGLE IMMUNIZATION ADMIN Sep 08, 2018 ADMN FLU VAC NO FEE SCHED SAME DAY Sep 08, 2018 VENIPUNCT, ROUTINE* Sep 08, 2018 Hemoglobin Test Send Out 0 dollar Sep 08, 2018 INSTRUCTIONS MEDICATIONS ADMINISTERED No Known Medications [...] in Left hand Hospitalization History Psych Eval[facility] [place] 2014
--- OUTSIDE RECORDS SUMMARY | 2018-12-16 05:53 | XMS REPORT ---
Author Author ZARINA MIRAMONTES Organization [facility] Address [address] [place] [address] Care Team Providers Care Optical Instrument Inspector Name Role Phone ZARINA MIRAMONTES Unavailable PROBLEMS Type Condition ICD9-CM Code NYJ69-EV Code Onset Dates Condition Status SNOMED Code Problem Coronary artery disease involving [place] coronary artery of [place] heart without angina pectoris I25.10 Active 1201490440358 Problem Other chronic pain G89.29 Active 19707789 Problem Arthritis M19.90 Active 8930560 Problem Severe episode of recurrent major depressive disorder, without psychotic features F33.2 Active 97215937 Problem Hyperlipidemia, unspecified hyperlipidemia type E78.5 Active 89941716 Problem Essential hypertension I10 Active 18596767 Problem Severe depression F32.2 Active 468305206 Problem Pain in right shoulder M25.511 Active 71399092 Problem Anxiety F41.9 Active 54733358 ALLERGIES No Information ENCOUNTERS Encounter Location Date Diagnosis [place] [address] [address] [id number] [place] [address] 12700[address] 2626 May, Severe episode of recurrent major depressive disorder, without psychotic features F33.2 [facility] [address] [place] [address] 70274- 9367 May, Severe episode of recurrent major depressive disorder, without psychotic features F33.2 [facility] [address] [place] [address] 68896- 9222 May, Severe episode of recurrent major depressive disorder, without psychotic features F33.2 [place] [address] [place] [id number] [place] [address] 26449- 9025 May, Severe episode of recurrent major depressive disorder, without psychotic features F33.2 [facility] [id number] [place] [address] 43032- 8449 Apr, Severe episode of recurrent major depressive disorder, without psychotic features F33.2 [place] [address] [id number] [place] [address] 78634- 3557 Apr, Severe episode of recurrent major depressive disorder, without psychotic features F33.2 ; Hyperglycemia R73.9 and Abnormal hair growth from preauricular area towards lateral cheekbone L67.8 [place] [address] [address]73[address] 5747 Apr, Severe episode of recurrent major depressive disorder, without psychotic features F33.2 [place] [address] [address] [id number] [place] [address] 92141- 1155 Apr, Severe episode of recurrent major depressive disorder, without psychotic features F33.2 [place] [address] [address] [id number] [place] [address] 31097- 0123 Nov, Pain in right shoulder M25.511 [facility] [place] [address] [address]6060 Nov, Acute maxillary sinusitis, recurrence not specified J01.00 [facility] [place] [id number] [place] [address] 28478 -3993 Aug, Cellulitis L03.90 [place] [address] [address] [id number] [place] [address] 83436- 4021 Aug, Arthritis M19.90 ; Other chronic pain G89.29 and Biceps tendonitis on right M75.21 [place] [address] [address] [id number] [place] [address] 27083- 5083 Jun, Pain in right shoulder M25.511 [place] [address] 36071- 4269 Jun, Pain in right shoulder M25.511 [place] [address] [address] [id number] [place] [address] 98757- 3519 Jun, Coronary artery disease involving [place] coronary artery of [place] heart without angina pectoris I25.10 ; Essential hypertension I10 ; Hyperlipidemia, unspecified hyperlipidemia type E78.5 and Anxiety F41.[address] [address]35[address] 31 May, 2017 Pain in right shoulder M25.511 and Biceps tendonitis, right M75.[address] 87948- 6798 13 May, 2017 Essential hypertension I10 ; Coronary artery disease involving [place] coronary artery of [place] heart without angina pectoris I25.10 ; Anxiety F41.9 ; Severe depression F32.2 ; Screening for diabetes mellitus (DM ) Z13.1 ; Screening for lipid disorders Z13.220 ; Pain in right shoulder M25.511 ; Bug bites, initial encounter W57.XXXA ; Arthritis M19.90 and Other chronic pain G89.[address] [address] May, [facility] [address] [address]84 Feb, Acute upper respiratory infection, unspecified J06.9 [facility] [address] 07[address] 08 Dec, 2016 Acute non-recurrent maxillary sinusitis J01.00 and Abscessed tooth K04.7 [facility] [address] 0[address] 14 Sep, 2016 Pain in right knee M25.561 ; Pain in left knee M25.562 ; Other chronic pain G89.29 ; Sore throat J02.9 ; Possible exposure to STD Z20.2 and Seasonal allergic rhinitis due to pollen J30.[address] 70651- 4861 17 Aug, 2016 Arthritis M19.90 ; Coronary artery disease involving [place] coronary artery of [place] heart without angina pectoris I25.10 and Depression, unspecified depression type F32.9 [facility] [address] 99[address]8966 Aug, Bug bites, initial encounter W57.XXXA IMMUNIZATIONS No Known Immunizations SOCIAL HISTORY Never Assessed REASON FOR VISIT Depression. PLAN OF CARE Activity Details Follow Up 1 Week Reason:depression VITAL SIGNS MEDICATIONS No Known Medications RESULTS No Results PROCEDURES Procedure Date Ordered Result Body Site [facility] VISIT MENTAL HEALTH ESTAB PT May 06, 2018 Psychotherapy, patient &/family, 30 minutes, established patient May 06, 2018 INSTRUCTIONS MEDICATIONS ADMINISTERED No [...] in Left hand Hospitalization History Psych Eval-[facility] [place] 2014
--- OUTSIDE RECORDS SUMMARY | 2018-12-16 05:54 | XMS REPORT ---
Author Author JANNETTE LYDIA Organization [facility] Address [address] [place] [address] Care Team Providers Care Park Manager Name Role Phone JANNETTE LYDIA Unavailable PROBLEMS Type Condition ICD9-CM Code OCC80-GI Code Onset Dates Condition Status SNOMED Code Problem Coronary artery disease involving [place] coronary artery of [place] heart without angina pectoris I25.10 Active 9002918785789 Problem Other chronic pain G89.29 Active 48898413 Problem Arthritis M19.90 Active 3953791 Problem Severe episode of recurrent major depressive disorder, without psychotic features F33.2 Active 70659867 Problem Hyperlipidemia, unspecified hyperlipidemia type E78.5 Active 47829879 Problem Essential hypertension I10 Active 17349663 Problem Severe depression F32.2 Active 818155717 Problem Pain in right shoulder M25.511 Active 18533589 Problem Anxiety F41.9 Active 21417135 ALLERGIES No Information ENCOUNTERS Encounter Location Date Diagnosis [place] [address] [place] [id number] [place] [address] 71604- 4636 May, Severe episode of recurrent major depressive disorder, without psychotic features F33.2 [place] [address] [address] [id number] [place] [address] 42627- 3251 May, Severe episode of recurrent major depressive disorder, without psychotic features F33.2 [facility] [address] [place] [address] 95366- 8579 May, Severe episode of recurrent major depressive disorder, without psychotic features F33.2 [place] [address] [address] [id number] [place] [address] 68708- 1736 May, Severe episode of recurrent major depressive disorder, without psychotic features F33.2 [place] [address] [address] [id number] [place] [address] 79413- 3904 Apr, Severe episode of recurrent major depressive disorder, without psychotic features F33.2 [place] [address] [address] [id number] [place] [address] 45900- 9228 Apr, Severe episode of recurrent major depressive disorder, without psychotic features F33.2 ; Hyperglycemia R73.9 and Abnormal hair growth from preauricular area towards lateral cheekbone L67.8 [place] [address] 95955- 8964 Apr, Severe episode of recurrent major depressive disorder, without psychotic features F33.2 [place] [address] [address] [id number] [place] [address] 94404- 4433 Apr, Severe episode of recurrent major depressive disorder, without psychotic features F33.2 [place] [address] [address] [id number] [place] [address] 98445- 9256 Nov, Pain in right shoulder M25.511 [facility] [place] [address] 35141 [address]1152 Nov, Acute maxillary sinusitis, recurrence not specified J01.00 [facility] [place] [address] 24186 -7791 Aug, Cellulitis L03.90 [place] [address] [address] [id number] [place] [address] 84498- 5356 Aug, Arthritis M19.90 ; Other chronic pain G89.29 and Biceps tendonitis on right M75.21 [place] [address] [address] [id number] [place] [address] 75396- 0974 Jun, Pain in right shoulder M25.511 [place] [address] [address] [id number] [place] [address] 61739- 7724 Jun, Pain in right shoulder M25.511 [place] [address] [address] [id number] [place] [address] 14424- 8412 Jun, Coronary artery disease involving [place] coronary artery of [place] heart without angina pectoris I25.10 ; Essential hypertension I10 ; Hyperlipidemia, unspecified hyperlipidemia type E78.5 and Anxiety F41.[address] 05929- 5797 31 May, 2017 Pain in right shoulder M25.511 and Biceps tendonitis, right M75.[address] 59896- 9032 13 May, 2017 Essential hypertension I10 ; Coronary artery disease involving [place] coronary artery of [place] heart without angina pectoris I25.10 ; Anxiety F41.9 ; Severe depression F32.2 ; Screening for diabetes mellitus (DM ) Z13.1 ; Screening for lipid disorders Z13.220 ; Pain in right shoulder M25.511 ; Bug bites, initial encounter W57.XXXA ; Arthritis M19.90 and Other chronic pain G89.[address] 82949- 4698 May, [facility] [address] [address]0 Feb, Acute upper respiratory infection, unspecified J06.9 [facility] [address] 85691 -7484 08 Dec, 2016 Acute non-recurrent maxillary sinusitis J01.00 and Abscessed tooth K04.7 [facility] [address] 56779 -4141 Sep, Pain in right knee M25.561 ; Pain in left knee M25.562 ; Other chronic pain G89.29 ; Sore throat J02.9 ; Possible exposure to STD Z20.2 and Seasonal allergic rhinitis due to pollen J30.[address] 49441- 0611 Aug, Arthritis M19.90 ; Coronary artery disease involving [place] coronary artery of [place] heart without angina pectoris I25.10 and Depression, unspecified depression type F32.9 [facility] [address] 19[address]3941 Aug, Bug bites, initial encounter W57.XXXA IMMUNIZATIONS No Known Immunizations SOCIAL HISTORY Never Assessed REASON FOR VISIT Requests return call PLAN OF CARE VITAL SIGNS MEDICATIONS Medication Instructions Dosage Frequency Start Date End Date Duration Status Sertraline HCl 100 MG Orally Once a day 1 tablet 24h 30 days Active RESULTS No Results PROCEDURES No [...] in Left hand Hospitalization History Psych Eval[facility] [place] 2014
--- OUTSIDE RECORDS SUMMARY | 2018-12-16 05:54 | XMS REPORT ---
Author Author DEBBIE GILBERT Organization [facility] Address [address] [place] [address] Care Team Providers Care Tile Picker Name Role Phone DEBBIE GILBERT Unavailable PROBLEMS Type Condition ICD9-CM Code HZR56-LO Code Onset Dates Condition Status SNOMED Code Problem Coronary artery disease involving [place] coronary artery of [place] heart without angina pectoris I25.10 Active 3403121467641 Problem Other chronic pain G89.29 Active 98958484 Problem Arthritis M19.90 Active 9203539 Problem Severe episode of recurrent major depressive disorder, without psychotic features F33.2 Active 80434213 Problem Hyperlipidemia, unspecified hyperlipidemia type E78.5 Active 06070272 Problem Essential hypertension I10 Active 30170567 Problem Severe depression F32.2 Active 833491121 Problem Pain in right shoulder M25.511 Active 87011878 Problem Anxiety F41.9 Active 07316050 ALLERGIES No Information ENCOUNTERS Encounter Location Date Diagnosis [facility] [address] [place] [address] 87371- 2387 Jun, Medicare annual wellness visit, initial Z00.00 [facility] [address] [address] Apr, [facility] [address] [place] [id number] [place] [address] 40571- 3865 Apr, [facility] [address] [place] [address] 52528- 3833 Apr, [facility] [address] [place] [id number] [place] [address] 38512- 2066 Apr, Severe episode of recurrent major depressive disorder, without psychotic features F33.2 [facility] [address] [place] [address] 17163- 1016 Nov, Pain in right shoulder M25.511 [facility] [address] [address] [id number] [place] [address] 36739 -2879 Nov, Acute maxillary sinusitis, recurrence not specified J01.00 [facility] [address] [place] [id number] [place] [address] 04984 -0952 07 Aug, 2017 Cellulitis L03.90 [place] [address] 72910- 5748 Aug, Arthritis M19.90 ; Other chronic pain G89.29 and Biceps tendonitis on right M75.21 [place] [address] 73003- 5907 Jun, Pain in right shoulder M25.511 [place] [address] 44612- 7445 Jun, Pain in right shoulder M25.511 [place] [address] 13327- 6228 Jun, Coronary artery disease involving [place] coronary artery of [place] heart without angina pectoris I25.10 ; Essential hypertension I10 ; Hyperlipidemia, unspecified hyperlipidemia type E78.5 and Anxiety F41.9 [place] [address] 07238- 0042 May, Pain in right shoulder M25.511 and Biceps tendonitis, right M75.21 [place] [address] [id number] [place] [address] 44530- 8364 May, Essential hypertension I10 ; Coronary artery disease involving [place] coronary artery of [place] heart without angina pectoris I25.10 ; Anxiety F41.9 ; Severe depression F32.2 ; Screening for diabetes mellitus (DM ) Z13.1 ; Screening for lipid disorders Z13.220 ; Pain in right shoulder M25.511 ; Bug bites, initial encounter W57.XXXA ; Arthritis M19.90 and Other chronic pain G89.29 [place] [address] 99812- 9197 May, [facility] [address] [address] Feb, Acute upper respiratory infection, unspecified J06.9 [facility] [address] [place] [id number] [place] [address] 39855 -8563 08 Dec, 2016 Acute non-recurrent maxillary sinusitis J01.00 and Abscessed tooth K04.7 [facility] [place] [id number] [place] [address] 79858 -8116 Sep, Pain in right knee M25.561 ; Pain in left knee M25.562 ; Other chronic pain G89.29 ; Sore throat J02.9 ; Possible exposure to STD Z20.2 and Seasonal allergic rhinitis due to pollen J30.1 [facility] [address] [place] [address] [place] [address] 81542- 1182 17 Aug, 2016 Arthritis M19.90 ; Coronary artery disease involving [place] coronary artery of [place] heart without angina pectoris I25.10 and Depression, unspecified depression type F32.9 [facility] [address] [place] [address] 73391 -9295 Aug, Bug bites, initial encounter W57.XXXA IMMUNIZATIONS No Known Immunizations SOCIAL HISTORY Never Assessed REASON FOR VISIT Controlled Med Refill Request PLAN OF CARE VITAL SIGNS MEDICATIONS Medication Instructions Dosage Frequency Start Date End Date Duration Status Tramadol HCl 50 mg Orally BID PRN 1 tablet as needed 28 days Active RESULTS No Results PROCEDURES [...] in Left hand Hospitalization History Psych Eval[facility] [place] 2014
--- OUTSIDE RECORDS SUMMARY | 2018-12-16 05:54 | XMS REPORT ---
Author Author JANNETTE LYDIA Organization [facility] Address [address] [place] [address] Care Team Providers Care Sink Cutter Name Role Phone JANNETTE LYDIA Unavailable PROBLEMS Type Condition ICD9-CM Code EZZ73-TJ Code Onset Dates Condition Status SNOMED Code Problem Coronary artery disease involving [place] coronary artery of [place] heart without angina pectoris I25.10 Active 9406997019762 Problem Other chronic pain G89.29 Active 86052448 Problem Arthritis M19.90 Active 6321434 Problem Severe episode of recurrent major depressive disorder, without psychotic features F33.2 Active 74157012 Problem Hyperlipidemia, unspecified hyperlipidemia type E78.5 Active 28179193 Problem Essential hypertension I10 Active 50941451 Problem Severe depression F32.2 Active 202440473 Problem Pain in right shoulder M25.511 Active 06877641 Problem Anxiety F41.9 Active 63729142 ALLERGIES No Information ENCOUNTERS Encounter Location Date Diagnosis [place] [address] [place] [id number] [place] [address] 75970- 8382 May, Severe episode of recurrent major depressive disorder, without psychotic features F33.2 [place] [address] [place] [id number] [place] [address] 83991- 3147 May, Severe episode of recurrent major depressive disorder, without psychotic features F33.2 [facility] [address] [place] [address] 84648- 4515 May, Severe episode of recurrent major depressive disorder, without psychotic features F33.2 [place] [address] [place] [id number] [place] [address] 93706- 2985 May, Severe episode of recurrent major depressive disorder, without psychotic features F33.2 [place] [address] [place] [id number] [place] [address] 84098- 4944 Apr, Severe episode of recurrent major depressive disorder, without psychotic features F33.2 [place] [address] [place] [id number] [place] [address] 11305- 5630 Apr, Severe episode of recurrent major depressive disorder, without psychotic features F33.2 ; Hyperglycemia R73.9 and Abnormal hair growth from preauricular area towards lateral cheekbone L67.8 [place] [address] 81934- 9598 Apr, Severe episode of recurrent major depressive disorder, without psychotic features F33.2 [place] [address] [place] [id number] [place] [address] 57665- 1107 Apr, Severe episode of recurrent major depressive disorder, without psychotic features F33.2 [place] [address] [place] [id number] [place] [address] 10595- 1264 Nov, Pain in right shoulder M25.511 [facility] [place] [address] 20897 -5606 Nov, Acute maxillary sinusitis, recurrence not specified J01.00 [facility] [place] [address] 85487 -8329 Aug, Cellulitis L03.90 [place] [address] [place] [id number] [place] [address] 92276- 4576 Aug, Arthritis M19.90 ; Other chronic pain G89.29 and Biceps tendonitis on right M75.21 [place] [address] [place] [id number] [place] [address] 50451- 2344 Jun, Pain in right shoulder M25.511 [place] [address] [place] [id number] [place] [address] 28667- 2022 Jun, Pain in right shoulder M25.511 [place] [address] [place] [id number] [place] [address] 67717- 1504 Jun, Coronary artery disease involving [place] coronary artery of [place] heart without angina pectoris I25.10 ; Essential hypertension I10 ; Hyperlipidemia, unspecified hyperlipidemia type E78.5 and Anxiety F41.[address] 9[address]81- 1665 31 May, 2017 Pain in right shoulder M25.511 and Biceps tendonitis, right M75.[address] 29652- 5373 13 May, 2017 Essential hypertension I10 ; Coronary artery disease involving [place] coronary artery of [place] heart without angina pectoris I25.10 ; Anxiety F41.9 ; Severe depression F32.2 ; Screening for diabetes mellitus (DM ) Z13.1 ; Screening for lipid disorders Z13.220 ; Pain in right shoulder M25.511 ; Bug bites, initial encounter W57.XXXA ; Arthritis M19.90 and Other chronic pain G89.[address] 10[address]- [address]407 May, [facility] [address] [address] Feb, Acute upper respiratory infection, unspecified J06.9 [facility] [address] 50940 -[address]51 08 Dec, 2016 Acute non-recurrent maxillary sinusitis J01.00 and Abscessed tooth K04.7 [facility] [address] 29909 -[address] Sep, Pain in right knee M25.561 ; Pain in left knee M25.562 ; Other chronic pain G89.29 ; Sore throat J02.9 ; Possible exposure to STD Z20.2 and Seasonal allergic rhinitis due to pollen J30.[address] 7[address]- 4865 Aug, Arthritis M19.90 ; Coronary artery disease involving [place] coronary artery of [place] heart without angina pectoris I25.10 and Depression, unspecified depression type F32.9 [facility] [address] 7[address] -3039 Aug, Bug bites, initial encounter W57.XXXA IMMUNIZATIONS No Known Immunizations SOCIAL HISTORY Never Assessed REASON FOR VISIT refill request PLAN OF CARE VITAL SIGNS MEDICATIONS Medication Instructions Dosage Frequency Start Date End Date Duration Status Sertraline HCl 100 MG Orally Once a day 1 tablet 24h 30 days Active Xanax 0.5 MG Orally Twice a day as needed 1 tablet Apr, 30 days Active RESULTS No Results PROCEDURES [...] in Left hand Hospitalization History Psych Eval-[facility] [place] 2014
--- OUTSIDE RECORDS SUMMARY | 2018-12-16 05:54 | XMS REPORT ---
Author Author DEBBIE GILBERT Organization [facility] Address [address] [place] [address] Care Team Providers Care Supervisor Vendor Quality Name Role Phone DEBBIE GILBERT Unavailable PROBLEMS Type Condition ICD9-CM Code AOG27-FK Code Onset Dates Condition Status SNOMED Code Problem Coronary artery disease involving [place] coronary artery of or[place]ar[place]iut heart without angina pectoris I25.10 Active 4393911600687 Problem Other chronic pain G89.29 Active 02615549 Problem Arthritis M19.90 Active 3496539 Problem Severe episode of recurrent major depressive disorder, without psychotic features F33.2 Active 55407829 Problem Hyperlipidemia, unspecified hyperlipidemia type E78.5 Active 59151944 Problem Essential hypertension I10 Active 72602805 Problem Severe depression F32.2 Active 524897395 Problem Pain in right shoulder M25.511 Active 46561963 Problem Anxiety F41.9 Active 31268487 ALLERGIES Substance Reaction Event Type Date Status Codeine Sulfate headache Drug Allergy Aug, Active ENCOUNTERS Encounter Location Date Diagnosis [facility] [id number] [place] [address]16- 9344 Jun, Medicare annual wellness visit, initial Z00.00 [place] [address] [place] [address] 87802- 4023 Jun, [facility] [id number] [place] [address] 28155- 0367 May, [facility] [address] [place] [id number] [place] [address] 55707- 6425 May, [facility] [address] [place] [address] [id number] [place] [address] 51067- 3757 May, Severe episode of recurrent major depressive disorder, without psychotic features F33.2 [facility] [address] [place] [address] [id number] [place] [address] 58512- 6050 May, Severe episode of recurrent major depressive disorder, without psychotic features F33.2 [place] [address] [place] [id number] [place] [address] 61204- 3343 Apr, Severe episode of recurrent major depressive disorder, without psychotic features F33.2 [facility] [address] [place] [id number] [place] [address] 91564- 2577 Apr, Severe episode of recurrent major depressive disorder, without psychotic features F33.2 ; Hyperglycemia R73.9 and Abnormal hair growth from preauricular area towards lateral cheekbone L67.8 [place] [address] [place] [id number] [place] [address] 60826- 9401 Apr, Severe episode of recurrent major depressive disorder, without psychotic features F33.2 [place] [address] [place] [id number] [place] [address] 38744- 3918 Apr, Severe episode of recurrent major depressive disorder, without psychotic features F33.2 [place] [address] [place] [id number] [place] [address] 42369- 0682 Nov, Pain in right shoulder M25.511 [facility] WALK IN [place] [id number] [place] [address] 94166 [address]3453 Nov, Acute maxillary sinusitis, recurrence not specified J01.00 [facility] WALK IN [facility] [address] [place] [id number] [place] [address] 62660 -6156 Aug, Cellulitis L03.90 [place] [address] [place] [id number] [place] [address] 52151- 2146 Aug, Arthritis M19.90 ; Other chronic pain G89.29 and Biceps tendonitis on right M75.21 [place] [address] [place] [id number] [place] [address] 88614- 0222 Jun, Pain in right shoulder M25.511 [facility] [address] [place] [address] [id number] [place] [address] 86992- 6868 Jun, Pain in right shoulder M25.511 [address] [place] [address] 01507- 2006 Jun, Coronary artery disease involving [place] coronary artery of orutsararmiut heart without angina pectoris I25.10 ; Essential hypertension I10 ; Hyperlipidemia, unspecified hyperlipidemia type E78.5 and Anxiety F41.9 [place] [id number] [place] [address] 77927- 6841 May, Pain in right shoulder M25.511 and Biceps tendonitis, right M75.21 [place] [id number] [place] [address] 98482- 4981 13 May, 2017 Essential hypertension I10 ; Coronary artery disease involving [place] coronary artery of oruts[place]iut heart without angina pectoris I25.10 ; Anxiety F41.9 ; Severe depression F32.2 ; Screening for diabetes mellitus (DM ) Z13.1 ; Screening for lipid disorders Z13.220 ; Pain in right shoulder M25.511 ; Bug bites, initial encounter W57.XXXA ; Arthritis M19.90 and Other chronic pain G89.29 [place] [id number] [place] [address] 85925- 0739 May, [facility] WALK IN [address] [address] Feb, Acute upper respiratory infection, unspecified J06.9 [facility] WALK IN [place] [id number] [place] [address] 31107 -7441 08 Dec, 2016 Acute non-recurrent maxillary sinusitis J01.00 and Abscessed tooth K04.7 [facility] WALK IN [place] [id number] [place] [address] 46205 -2922 14 Sep, 2016 Pain in right knee M25.561 ; Pain in left knee M25.562 ; Other chronic pain G89.29 ; Sore throat J02.9 ; Possible exposure to STD Z20.2 and Seasonal allergic rhinitis due to pollen J30.1 [place] [id number] [place] [address] 36113- 6408 Aug, Arthritis M19.90 ; Coronary artery disease involving [place] coronary artery of or[place] heart without angina pectoris I25.10 and Depression, unspecified depression type F32.9 [facility] CARE [address] [facility] [id number] [address] Aug, Bug bites, initial encounter W57.XXXA IMMUNIZATIONS No Known Immunizations SOCIAL HISTORY Never Assessed REASON FOR VISIT rt Shoulder Pain fu -- sharon avery PLAN OF CARE Activity Details Follow Up 2 Months with Bekah Borja shoulder pain Reason: VITAL SIGNS Height 66 in 2017-08-11 Weight 179.0 lbs 2017-08-11 Temperature 97.0 degrees Fahrenheit 2017-08-11 Heart Rate 78 bpm 2017-08-11 Respiratory Rate 18 2017-08-11 BMI 28.89 kg/m2 2017-08-11 Blood pressure systolic 130 mmHg 2017-08-11 Blood pressure diastolic 78 mmHg 2017-08-11 MEDICATIONS Medication Instructions Dosage Frequency Start Date End Date Duration Status Cyanocobalamin 1000 MCG Orally Once a day 1 tablet 24h Active Multivitamin Adult - Active Ascorbic Acid 100 MG Orally Once a day 1 tablet 24h Active Meloxicam 15 MG Orally Once a day 1 tablet 24h Active Sertraline HCl 100 mg Orally Once a day 1 tablet 24h Active Cetirizine HCl 10 mg Orally Once a day 1 tablet 24h 14 Sep, 2016 Not -Taking Hydrocodone-Acetaminophen 10-325 MG Orally every 6 hrs 1 tablet as needed 6h Not-Taking Aspir-81 81 MG Orally Once a day 1 tablet 24h 8 Dec, 2017 30 days Active Crestor 40 mg Orally Once a day 1 tablet 24h 30 days Active [place] 3 1000 MG Orally Once a day 1 capsule 24h Not-Taking Tramadol HCl 50 mg Orally BID PRN 1 tablet as needed 28 days Active Metoprolol Tartrate 50 mg Orally one time 1 tabet Active RESULTS No Results PROCEDURES Procedure Date Ordered Result Body Site [facility] VISIT ESTABLISHED PATIENT Aug 11, 2017 INSTRUCTIONS MEDICATIONS ADMINISTERED No Known Medications [...] in Left hand Hospitalization History Psych Eval-[facility] [place] 2014
--- OUTSIDE RECORDS SUMMARY | 2018-12-16 05:54 | XMS REPORT ---
Author Author JANNETTE LYDIA Organization [facility] Address [address] [place] [address] Care Team Providers Care Slag Expander Name Role Phone JANNETTE LYDIA Unavailable PROBLEMS Type Condition ICD9-CM Code MWO32-VJ Code Onset Dates Condition Status SNOMED Code Problem Coronary artery disease involving platinum coronary artery of platinum heart without angina pectoris I25.10 Active 9414490576558 Problem Other chronic pain G89.29 Active 08496814 Problem Arthritis M19.90 Active 7697609 Problem Severe episode of recurrent major depressive disorder, without psychotic features F33.2 Active 76137540 Problem Hyperlipidemia, unspecified hyperlipidemia type E78.5 Active 26471705 Problem Essential hypertension I10 Active 55949614 Problem Severe depression F32.2 Active 510061649 Problem Pain in right shoulder M25.511 Active 19565928 Problem Anxiety F41.9 Active 02539435 ALLERGIES Substance Reaction Event Type Date Status Codeine Sulfate headache Drug Allergy Apr, Active ENCOUNTERS Encounter Location Date Diagnosis [place] [address] [place] [id number] [place] [address] 69296- 5865 May, Severe episode of recurrent major depressive disorder, without psychotic features F33.2 [facility] [address] [place] [address] 27340- 0514 May, Severe episode of recurrent major depressive disorder, without psychotic features F33.2 [facility] [address] [address] May, Severe episode of recurrent major depressive disorder, without psychotic features F33.2 [facility] [address] [place] [address] 54812- 6954 May, Severe episode of recurrent major depressive disorder, without psychotic features F33.2 [facility] [address] [place] [id number] [place] [address] 11455- 0237 Apr, Severe episode of recurrent major depressive disorder, without psychotic features F33.2 [place] [address] [place] [id number] [place] [address] 00795- 7229 Apr, Severe episode of recurrent major depressive disorder, without psychotic features F33.2 ; Hyperglycemia R73.9 and Abnormal hair growth from preauricular area towards lateral cheekbone L67.8 [place] [address] [place] [id number] [place] [address] 52815- 0578 Apr, Severe episode of recurrent major depressive disorder, without psychotic features F33.2 [place] [address] 62813- 9770 Apr, Severe episode of recurrent major depressive disorder, without psychotic features F33.2 [place] [address] [place] [id number] [place] [address] 32074- 4491 Nov, Pain in right shoulder M25.511 [facility] WALK IN [place] [address] [place] [id number] [place] [address] 25891 -1320 Nov, Acute maxillary sinusitis, recurrence not specified J01.00 [facility] WALK IN [place] [address] [place] [id number] [place] [address] 76867 -3430 Aug, Cellulitis L03.90 [place] [address] [place] [id number] [place] [address] 64913- 4064 Aug, Arthritis M19.90 ; Other chronic pain G89.29 and Biceps tendonitis on right M75.21 [place] [address] [place] [id number] [place] [address] 81485- 6803 Jun, Pain in right shoulder M25.511 [place] [address] [place] [id number] [place] [address] 36635- 0892 Jun, Pain in right shoulder M25.511 [place] [address] [place] [id number] [place] [address] 26986- 7760 Jun, Coronary artery disease involving platinum coronary artery of platinum heart without angina pectoris I25.10 ; Essential hypertension I10 ; Hyperlipidemia, unspecified hyperlipidemia type E78.5 and Anxiety F41.[address] [address]- 9333 31 May, 2017 Pain in right shoulder M25.511 and Biceps tendonitis, right M75.[address] 86351- 6155 13 May, 2017 Essential hypertension I10 ; Coronary artery disease involving platinum coronary artery of platinum heart without angina pectoris I25.10 ; Anxiety F41.9 ; Severe depression F32.2 ; Screening for diabetes mellitus (DM ) Z13.1 ; Screening for lipid disorders Z13.220 ; Pain in right shoulder M25.511 ; Bug bites, initial encounter W57.XXXA ; Arthritis M19.90 and Other chronic pain G89.[address] 54849- 0112 May, [facility] WALK IN [address] [address] Feb, Acute upper respiratory infection, unspecified J06.9 [facility] WALK IN [address] 95210 -1509 08 Dec, 2016 Acute non-recurrent maxillary sinusitis J01.00 and Abscessed tooth K04.7 [facility] WALK IN [address] 37[address] -2951 Sep, Pain in right knee M25.561 ; Pain in left knee M25.562 ; Other chronic pain G89.29 ; Sore throat J02.9 ; Possible exposure to STD Z20.2 and Seasonal allergic rhinitis due to pollen J30.[address] 92424- 2130 17 Aug, 2016 Arthritis M19.90 ; Coronary artery disease involving platinum coronary artery of platinum heart without angina pectoris I25.10 and Depression, unspecified depression type F32.9 [facility] WALK IN [address] [place] [address] Aug, Bug bites, initial encounter W57.XXXA IMMUNIZATIONS No Known Immunizations SOCIAL HISTORY Never Assessed REASON FOR VISIT BH intake WB-DEVIN PLAN OF CARE Activity Details Follow Up 6 Weeks Reason: VITAL SIGNS Height 66 in 2018-04-30 Weight 186.6 lbs 2018-04-30 Heart Rate 112 bpm 2018-04-30 Respiratory Rate 20 2018-04-30 BMI 30.11 kg/m2 2018-04-30 Blood pressure systolic 142 mmHg 2018-04-30 Blood pressure diastolic 92 mmHg 2018-04-30 MEDICATIONS Medication Instructions Dosage Frequency Start Date End Date Duration Status Multivitamin Adult - Not-Taking Cyanocobalamin 1000 MCG Orally Once a day 1 tablet 24h Not-Taking Ascorbic Acid 100 MG Orally Once a day 1 tablet 24h Not-Taking Tramadol HCl 50 mg Orally BID PRN 1 tablet as needed 28 days Not- Taking Crestor 40 mg Orally Once a day 1 tablet 24h 30 days Not-Taking Cetirizine HCl 10 mg Orally Once a day 1 tablet 24h 14 Sep, 2016 Not -Taking Hydrocodone-Acetaminophen 10-325 MG Orally every 6 hrs 1 tablet as needed 6h Not-Taking Metoprolol Tartrate 50 mg Orally one time 1 tabet Not-Taking Meloxicam 15 MG Orally Once a day 1 tablet 24h Not-Taking [place] 3 1000 MG Orally Once a day 1 capsule 24h Not-Taking Xanax 0.5 MG Orally Twice a day as needed 1 tablet Apr, 30 days Active Sertraline HCl 50 MG Orally Once a day 1 tablet 24h 30 days Active RESULTS No Results PROCEDURES Procedure Date Ordered Result Body Site [facility] VISIT ESTABLISHED PATIENT April 30, 2018 INSTRUCTIONS MEDICATIONS ADMINISTERED No Known Medications [...] in Left hand Hospitalization History Psych Eval-[facility] [place] 2014
--- OUTSIDE RECORDS SUMMARY | 2018-12-16 05:54 | XMS REPORT ---
Author Author ZARINA MIRAMONTES Organization [facility] Address [address] [place] [address] Care Team Providers Care Software Design Engineer Name Role Phone ZARINA MIRAMONTES Unavailable PROBLEMS Type Condition ICD9-CM Code LSU75-CY Code Onset Dates Condition Status SNOMED Code Problem Coronary artery disease involving citizen [place] coronary artery of citizen [place] heart without angina pectoris I25.10 Active 3642437385455 Problem Other chronic pain G89.29 Active 81741173 Problem Arthritis M19.90 Active 9662190 Problem Severe episode of recurrent major depressive disorder, without psychotic features F33.2 Active 75083581 Problem Hyperlipidemia, unspecified hyperlipidemia type E78.5 Active 13416975 Problem Essential hypertension I10 Active 23162450 Problem Severe depression F32.2 Active 397885200 Problem Pain in right shoulder M25.511 Active 17332620 Problem Anxiety F41.9 Active 36674265 ALLERGIES No Information ENCOUNTERS Encounter Location Date Diagnosis [place] [address] [place] [id number] [place] [address] 86409- 3639 May, Severe episode of recurrent major depressive disorder, without psychotic features F33.2 [facility] [address] [place] [address] 35221- 6640 May, Severe episode of recurrent major depressive disorder, without psychotic features F33.2 [facility] [address] [place] [id number] [place] [address] 17313- 5523 May, Severe episode of recurrent major depressive disorder, without psychotic features F33.2 [place] [address] [place] [id number] [place] [address] 10642- 0477 May, Severe episode of recurrent major depressive disorder, without psychotic features F33.2 [facility] [address] [place] [id number] [place] [address] 59923- 1209 Apr, Severe episode of recurrent major depressive disorder, without psychotic features F33.2 [place] [address] [place] [id number] [place] [address] 40068- 8476 Apr, Severe episode of recurrent major depressive disorder, without psychotic features F33.2 ; Hyperglycemia R73.9 and Abnormal hair growth from preauricular area towards lateral cheekbone L67.8 [place] [address] 758[address]- 2754 Apr, Severe episode of recurrent major depressive disorder, without psychotic features F33.2 [place] [address] [place] [id number] [place] [address] 59954- 9545 Apr, Severe episode of recurrent major depressive disorder, without psychotic features F33.2 [place] [address] [place] [id number] [place] [address] 56420- 7487 Nov, Pain in right shoulder M25.511 [facility] WALK IN [place] [address] [address] Nov, Acute maxillary sinusitis, recurrence not specified J01.00 [facility] WALK IN [place] [address] [place] [id number] [place] [address] 16009 -0317 Aug, Cellulitis L03.90 [place] [address] [place] [id number] [place] [address] 51288- 9058 Aug, Arthritis M19.90 ; Other chronic pain G89.29 and Biceps tendonitis on right M75.21 [place] [address] [place] [id number] [place] [address] 45662- 1151 Jun, Pain in right shoulder M25.511 [place] [address] 82348- 3928 Jun, Pain in right shoulder M25.511 [place] [address] [place] [id number] [place] [address] 99155- 9615 Jun, Coronary artery disease involving citizen [place] coronary artery of citizen [place] heart without angina pectoris I25.10 ; Essential hypertension I10 ; Hyperlipidemia, unspecified hyperlipidemia type E78.5 and Anxiety F41.[address] 00085- 6041 31 May, 2017 Pain in right shoulder M25.511 and Biceps tendonitis, right M75.[address] 14535- 3227 13 May, 2017 Essential hypertension I10 ; Coronary artery disease involving citizen [place] coronary artery of citizen [place] heart without angina pectoris I25.10 ; Anxiety F41.9 ; Severe depression F32.2 ; Screening for diabetes mellitus (DM ) Z13.1 ; Screening for lipid disorders Z13.220 ; Pain in right shoulder M25.511 ; Bug bites, initial encounter W57.XXXA ; Arthritis M19.90 and Other chronic pain G89.[address] 54077- [address]233 May, [facility] WALK IN [address] [address] Feb, Acute upper respiratory infection, unspecified J06.9 [facility] WALK IN [address] [address] 08 Dec, 2016 Acute non-recurrent maxillary sinusitis J01.00 and Abscessed tooth K04.7 [facility] WALK IN [address] 34[address] 14 Sep, 2016 Pain in right knee M25.561 ; Pain in left knee M25.562 ; Other chronic pain G89.29 ; Sore throat J02.9 ; Possible exposure to STD Z20.2 and Seasonal allergic rhinitis due to pollen J30.[address] 11889- 4176 17 Aug, 2016 Arthritis M19.90 ; Coronary artery disease involving citizen [place] coronary artery of citizen [place] heart without angina pectoris I25.10 and Depression, unspecified depression type F32.9 [facility] WALK IN [address] [address] 06 Aug, 2016 Bug bites, initial encounter W57.XXXA IMMUNIZATIONS No Known Immunizations SOCIAL HISTORY Never Assessed REASON FOR VISIT intake PLAN OF CARE Activity Details Follow Up next available Reason:depression VITAL SIGNS MEDICATIONS Medication Instructions Dosage Frequency Start Date End Date Duration Status Tramadol HCl 50 mg Orally BID PRN 1 tablet as needed 28 days Not- Taking Metoprolol Tartrate 50 mg Orally one time 1 tabet Unknown Meloxicam 15 MG Orally Once a day 1 tablet 24h Unknown Cetirizine HCl 10 mg Orally Once a day 1 tablet 24h Sep, Unknown Multivitamin Adult - Unknown Sertraline HCl 100 mg Orally Once a day 1 tablet 24h Unknown Ascorbic Acid 100 MG Orally Once a day 1 tablet 24h Unknown Cyanocobalamin 1000 MCG Orally Once a day 1 tablet 24h Unknown Crestor 40 mg Orally Once a day 1 tablet 24h 30 days Unknown [place] 3 1000 MG Orally Once a day 1 capsule 24h Unknown Hydrocodone-Acetaminophen 10-325 MG Orally every 6 hrs 1 tablet as needed 6h Unknown RESULTS No Results PROCEDURES Procedure Date Ordered Result Body Site [facility] VISIT MENTAL HEALTH ESTAB PT April 21, 2018 Psych diagnostic evaluation, established patient April 21, 2018 INSTRUCTIONS MEDICATIONS ADMINISTERED No Known Medications [...] in Left hand Hospitalization History Psych Eval-[facility] [place] 2014
--- OUTSIDE RECORDS SUMMARY | 2018-12-16 05:54 | XMS REPORT ---
Author Author ZARINA MIRAMONTES Organization [facility] Address [address] [place] [address] Care Team Providers Care Mailroom Courier Name Role Phone ZARINA MIRAMONTES Unavailable PROBLEMS Type Condition ICD9-CM Code [id number] Code Onset Dates Condition Status SNOMED Code Problem Arthritis M19.90 Active 5698637 Problem Severe depression F32.2 Active 264612293 Problem Other chronic pain G89.29 Active 63160292 Problem Coronary artery disease involving [place] coronary artery of [place] heart without angina pectoris I25.10 Active 8885004742545 Problem Psychophysiological insomnia F51.04 Active 540517265 Problem Severe episode of recurrent major depressive disorder, without psychotic features F33.2 Active 62924863 Problem Anxiety F41.9 Active 63262256 Problem Essential hypertension I10 Active 86936628 Problem Hyperlipidemia, unspecified hyperlipidemia type E78.5 Active 16753920 Problem Pain in right shoulder M25.511 Active 49297396 ALLERGIES No Information ENCOUNTERS Encounter Location Date Diagnosis [place] [id number] [place] [address] May, Severe episode of recurrent major depressive disorder, without psychotic features F33.2 [facility] [address] [place] [address] May, Severe episode of recurrent major depressive disorder, without psychotic features F33.2 [facility] [address] [place] [address]78- 78[address] May, Severe episode of recurrent major depressive disorder, without psychotic features F33.2 [facility] [address] [place] [address] 60666[address] May, Severe episode of recurrent major depressive disorder, without psychotic features F33.2 [facility] [address] [place] [id number] [place] [address] 45535[address]689 Apr, Severe episode of recurrent major depressive disorder, without psychotic features F33.2 [place] [address] [place] [id number] [place] [address] 98016[address] Apr, Severe episode of recurrent major depressive disorder, without psychotic features F33.2 ; Hyperglycemia R73.9 ; Pain in right knee M25.561 ; Hyperlipidemia, unspecified hyperlipidemia type E78.5 and Psychophysiological insomnia F51.04 [place] [address] [place] [id number] [place] [address] 82661- [address]773 Apr, Severe episode of recurrent major depressive disorder, without psychotic features F33.2 [place] [address] [address] Apr, Severe episode of recurrent major depressive disorder, without psychotic features F33.2 [place] [address] [place] [id number] [place] [address]- [address] Nov, Pain in right shoulder M25.511 [facility] [place] [address] [place] [id number] [place] [address] Nov, Acute maxillary sinusitis, recurrence not specified J01.00 [facility] WALK IN [facility] [address] [place] [id number] [place] [address] Aug, Cellulitis L03.90 [place] [address] [place] [id number] [place] [address] 57211- 6[address] Aug, Arthritis M19.90 ; Other chronic pain G89.29 and Biceps tendonitis on right M75.21 [place] [address] [place] [id number] [place] [address] 96[address] 28[address] Jun, Pain in right shoulder M25.511 [place] [address] [place] [id number] [place] [address] 91319- 4766 Jun, Pain in right shoulder M25.511 [place] [address] [place] [id number] [place] [address] 88410- [address] Jun, Coronary artery disease involving [place] coronary artery of [place] heart without angina pectoris I25.10 ; Essential hypertension I10 ; Hyperlipidemia, unspecified hyperlipidemia type E78.5 and Anxiety F41.[address] [address] 31 May, 2017 Pain in right shoulder M25.511 and Biceps tendonitis, right M75.[address] [address] 13 May, 2017 Essential hypertension I10 ; Coronary artery disease involving [place] coronary artery of [place] heart without angina pectoris I25.10 ; Anxiety F41.9 ; Severe depression F32.2 ; Screening for diabetes mellitus (DM ) Z13.1 ; Screening for lipid disorders Z13.220 ; Pain in right shoulder M25.511 ; Bug bites, initial encounter W57.XXXA ; Arthritis M19.90 and Other chronic pain G89.[address] [address] May, [facility] [address] [address] Feb, Acute upper respiratory infection, unspecified J06.9 [facility] [address] [address] 08 Dec, 2016 Acute non-recurrent maxillary sinusitis J01.00 and Abscessed tooth K04.7 [facility] W[facility] IN [address] [address] Sep, Pain in right knee M25.561 ; Pain in left knee M25.562 ; Other chronic pain G89.29 ; Sore throat J02.9 ; Possible exposure to STD Z20.2 and Seasonal allergic rhinitis due to pollen J30.[address] [address] 17 Aug, 2016 Arthritis M19.90 ; Coronary artery disease involving [place] coronary artery of [place] heart without angina pectoris I25.10 and Depression, unspecified depression type F32.9 [facility] [place] [address] [place] [address] Aug, Bug bites, initial encounter W57.XXXA IMMUNIZATIONS No Known Immunizations SOCIAL HISTORY Never Assessed REASON FOR VISIT f/u PLAN OF CARE Activity Details Follow Up 2 Weeks Reason:depression VITAL SIGNS MEDICATIONS No Known Medications RESULTS No Results PROCEDURES Procedure Date Ordered Result Body Site Psychotherapy, patient &/family, with E&M, 30 minutes, established patient May 26, 2018 INSTRUCTIONS MEDICATIONS ADMINISTERED No Known Medications [...] in Left hand Hospitalization History Psych Eval-[facility] [place] 2015
--- OUTSIDE RECORDS SUMMARY | 2018-12-16 05:55 | XMS REPORT ---
Author Author GUSTAVO [facility]acarias [facility] Address [address] [place] [address] Care Team Providers Care Community Educator Name Role Phone katySASHASHEFALI GUSTAVO Unavailable PROBLEMS Type Condition ICD9-CM Code IEH54-DT Code Onset Dates Condition Status SNOMED Code Problem Arthritis M19.90 Active 0212498 Problem Seasonal allergic rhinitis due to pollen J30.1 Active 89475105 Problem Depression, unspecified depression type F32.9 Active 96809112 Problem Coronary artery disease involving [place] coronary artery of [place] heart without angina pectoris I25.10 Active 8139581186010 Problem Hyperlipidemia, unspecified hyperlipidemia type E78.5 Active 81277319 Problem Pain in right shoulder M25.511 Active 25052387 Problem Severe depression F32.2 Active 939050795 Problem Other chronic pain G89.29 Active 18347202 Problem Anxiety F41.9 Active 01579735 Problem Essential hypertension I10 Active 79244728 ALLERGIES Substance Reaction Event Type Date Status Codeine Sulfate headache Drug Allergy Aug, Active ENCOUNTERS Encounter Location Date Diagnosis [facility] [address] [place] [id number] [place] [address] March, Medicare annual wellness visit, initial Z00.00 [facility] [address] [place] [id number] [place] [address] 6[address] Nov, Pain in right shoulder M25.511 [facility] [address] [place] [id number] [place] [address] Nov, Acute maxillary sinusitis, recurrence not specified J01.00 [facility] [address] [place] [id number] [place] [address] Aug, Cellulitis L03.90 [facility] [address] [address] Aug, Arthritis M19.90 ; Other chronic pain G89.29 and Biceps tendonitis on right M75.21 [place] [address] [place] [id number] [place] [address]- [address] Jun, Pain in right shoulder M25.511 [place] [address] [place] [id number] [place] [address]- [address] Jun, Pain in right shoulder M25.511 [place] [address] [place] [id number] [place] [address] 58048- 9806 Jun, Coronary artery disease involving [place] coronary artery of [place] heart without angina pectoris I25.10 ; Essential hypertension I10 ; Hyperlipidemia, unspecified hyperlipidemia type E78.5 and Anxiety F41.9 [place] [id number] [place] [address]88- 39[address] May, Pain in right shoulder M25.511 and Biceps tendonitis, right M75.21 [place] [id number] [place] [address]- [address] May, Essential hypertension I10 ; Coronary artery disease involving [place] coronary artery of [place] heart without angina pectoris I25.10 ; Anxiety F41.9 ; Severe depression F32.2 ; Screening for diabetes mellitus (DM ) Z13.1 ; Screening for lipid disorders Z13.220 ; Pain in right shoulder M25.511 ; Bug bites, initial encounter W57.XXXA ; Arthritis M19.90 and Other chronic pain G89.[address] [place] [address] May, [facility] [address] [place] [id number] [place] [address] Feb, Acute upper respiratory infection, unspecified J06.9 [facility] [address] [place] [id number] [place] [address] Dec, Acute non-recurrent maxillary sinusitis J01.00 and Abscess[address] tooth K04.7 [facility] [address] [place] [address] [address] 14 Sep, 2016 Pain in right knee M25.561 ; Pain in left knee M25.562 ; Other chronic pain G89.29 ; Sore throat J02.9 ; Possible exposure to STD Z20.2 and Seasonal allergic rhinitis due to pollen J30.1 [facility] [address] [facility] [id number] [address] Aug, Arthritis M19.90 ; Coronary artery disease involving [place] coronary artery of [place] heart without angina pectoris I25.10 and Depression, unspecified depression type F32.9 [facility] [address] [facility] [id number] [address] 06 Aug, 2016 Bug bites, initial encounter W57.XXXA IMMUNIZATIONS No Known Immunizations SOCIAL HISTORY Never Assessed REASON FOR VISIT left leg itching and redness started Thurs JStrasserRN PLAN OF CARE Activity Details Follow Up prn Reason: VITAL SIGNS Height 66 in 2017-08-16 Weight 182.4 lbs 2017-08-16 Temperature 98.2 degrees Fahrenheit 2017-08-16 Heart Rate 88 bpm 2017-08-16 Respiratory Rate 20 2017-08-16 BMI 29.44 kg/m2 2017-08-16 Blood pressure systolic 120 mmHg 2017-08-16 Blood pressure diastolic 80 mmHg 2017-08-16 MEDICATIONS Medication Instructions Dosage Frequency Start Date End Date Duration Status Multivitamin Adult - Active Aspir-81 81 MG Orally Once a day 1 tablet 24h 8 Dec, 2017 30 days Active Crestor 40 mg Orally Once a day 1 tablet 24h 30 days Active Meloxicam 15 MG Orally Once a day 1 tablet 24h Active Ascorbic Acid 100 MG Orally Once a day 1 tablet 24h Active Bactrim DS 800-160 MG Orally BID 1 tablet 12h Aug, Aug, 10 day(s) Active Tramadol HCl 50 mg Orally BID PRN 1 tablet as needed 28 days Active Cyanocobalamin 1000 MCG Orally Once a day 1 tablet 24h Active Metoprolol Tartrate 50 mg Orally one time 1 tabet Active Sertraline HCl 100 mg Orally Once a day 1 tablet 24h Active RESULTS No Results PROCEDURES Procedure Date Ordered Result Body Site [facility] VISIT ESTABLISHED PATIENT Aug 16, 2017 INSTRUCTIONS MEDICATIONS ADMINISTERED No Known Medications [...] in Left hand Hospitalization History Psych Eval[facility] [place] 2014
--- OUTSIDE RECORDS SUMMARY | 2018-12-16 05:55 | XMS REPORT | Continuity of Care Document ---
Author Author [facility] Organization [facility] Address Unknown Phone Unavailable Allergies Active Description Code Type Severity Reaction Onset Reported/Identified Relationship to Patient Clinical Status Yes codeine Drug N/A WALL - Headache Yes codeine Drug N/A WALL - Headache Yes codeine [id number] Drug Allergy Unknown headache 11/13/2016 Yes codeine [id number] Drug Allergy Mild headache 12/08/2018 Medications There is no data. Problems Date Dx Coded Attending Type Code Diagnosis Diagnosed By 10/09/1436 AUSTEN FRANCOIS DO, Ot Z47.1 AFTERCARE FOLLOWING JOINT REPLACEMENT BURRIS 10/09/1436 AUSTEN FRANCOIS DO, Ot Z96.652 PRESENCE OF LEFT ARTIFICIAL KNEE JOINT 06/11/2015 Dimas Christopher Final 338.19 Other Acute [...] health complaint in whom no diagnosis is 11/13/2016 AUSTEN FRANCOIS DO Ot M17.0 BILATERAL PRIMARY OSTEOARTHRITIS OF KNEE 11/13/2016 AUSTEN FRANCOIS DO, Ot R53.83 OTHER FATIGUE 11/13/2016 AUSTEN FRANCOIS DO, Ot Z01.811 ENCOUNTER FOR PREPROCEDURAL RESPIRATORY 11/13/2016 AUSTEN FRANCOIS DO, Ot Z01.812 ENCOUNTER FOR PREPROCEDURAL LABORATORY E 11/13/2016 AUSTEN FRANCOIS DO, Ot Z11.2 ENCOUNTER FOR SCREENING FOR OTHER BACTER 11/13/2016 AUSTEN FRANCOIS DO, Ot M79.662 PAIN IN LEFT LOWER LEG 11/19/2016 ALESSANDRO BECK, AUSTEN Swan Ot M17.0 BILATERAL PRIMARY OSTEOARTHRITIS OF KNEE 11/19/2016 ALESSANDRO BECK, AUSTEN Swan Ot R53.83 OTHER FATIGUE 11/19/2016 ALESSANDRO BECK, AUSTEN Swan Ot Z01.811 ENCOUNTER FOR PREPROCEDURAL RESPIRATORY 11/19/2016 ALESSANDRO BECK, AUSTEN Swan Ot Z01.812 ENCOUNTER FOR PREPROCEDURAL LABORATORY E 11/19/2016 ALESSANDRO BECK, AUSTEN Swan Ot Z11.2 ENCOUNTER FOR SCREENING FOR OTHER BACTER 11/28/2016 ALESSANDRO BECK, AUSTEN Swan Ot F17.210 NICOTINE DEPENDENCE, CIGARETTES, UNCOMPL 11/28/2016 ALESSANDRO BECK, AUSTEN Swan Ot F32.9 MAJOR DEPRESSIVE DISORDER, SINGLE EPISOD 11/28/2016 ALESSANDRO BECK, AUSTEN Swan Ot F41.9 ANXIETY DISORDER, UNSPECIFIED 11/28/2016 ALESSANDRO BECK AUSTEN Swan Ot I25.2 OLD MYOCARDIAL INFARCTION 11/28/2016 ALESSANDRO BECK AUSTEN Swan Ot M17.12 UNILATERAL PRIMARY OSTEOARTHRITIS, LEFT 12/31/2016 ALESSANDRO BECK AUSTEN Swan Ot Z47.1 AFTERCARE FOLLOWING JOINT REPLACEMENT BURRIS 12/31/2016 ALESSANDRO BECK AUSTEN Swan Ot Z96.652 PRESENCE OF LEFT ARTIFICIAL KNEE JOINT 01/22/2017 ALESSANDRO BECK AUSTEN Swan Ot Z47.1 AFTERCARE FOLLOWING JOINT REPLACEMENT BURRIS 01/22/2017 ALESSANDRO BECK, AUSTEN Swan Ot Z96.652 PRESENCE OF LEFT ARTIFICIAL KNEE JOINT 08/16/2017 MICHELLE HERRING MD Ot S80.862A INSECT BITE (NONVENOMOUS), LEFT LOWER LE 08/16/2017 MICHELLE HERRING MD Ot W57.XXXA BIT/STUNG BY NONVENOM INSECT OTH NONVE 08/18/2017 MICHELLE HERRING MD Ot S80.862A INSECT BITE (NONVENOMOUS), LEFT LOWER LE 08/18/2017 MICHELLE HERRING MD Ot W57.XXXA BIT/STUNG BY NONVENOM INSECT OTH NONVE 08/18/2017 MICHELLE HERRING MD Ot S80.862A INSECT BITE (NONVENOMOUS), LEFT LOWER LE 08/18/2017 MICHELLE HERRING MD Ot W57.XXXA BIT/STUNG BY NONVENOM INSECT OT NONVE 12/09/2018 NIKKIE COOK, RASHID Santamaria Ot M17.11 UNILATERAL PRIMARY OSTEOARTHRITIS, RIGHT 12/09/2018 RASHID LUNDY MD, Ot R53.83 OTHER FATIGUE 12/09/2018 RASHID LUNDY MD, Ot Z01.810 ENCOUNTER FOR PREPROCEDURAL CARDIOVASCUL 12/09/2018 RASHID LUNDY MD, Ot Z01.811 ENCOUNTER FOR PREPROCEDURAL RESPIRATORY 12/09/2018 RASHID LUNDY MD, Ot Z01.812 ENCOUNTER FOR PREPROCEDURAL LABORATORY E 12/09/2018 RASHID LUNDY MD, Ot Z11.2 ENCOUNTER FOR SCREENING FOR OTHER BACTER Procedures Code Description [place] [address] Therapeutic, prophylactic, or diagnostic [facility] HSI[facility] 11/14/2015 04368 Emergency department visit for the evalu [facility] 11/14/2015 [id number] REPLACE OF L KNEE JT WITH SYNTH SUB, YENI 11/26/2016 Results Test Result Range Genital Culture, Routine - 09/23/16 15:24 Genital Culture, Routine Note Complete blood count (CBC) with automated white blood cell (WBC) differential - 11/13/16 12:30 Blood leukocytes automated count (number/volume) 9.2 10*3/uL 4.3-11.0 Blood erythrocytes automated count (number/volume) 4.44 10*6/uL 4.35-5.85 Venous blood hemoglobin measurement (mass/volume) 13.5 g/dL 11.5-16.0 Blood hematocrit (volume fraction) 40 % 35-52 Automated erythrocyte mean corpuscular volume 90 [foz_us] 80-99 Automated erythrocyte mean corpuscular hemoglobin (mass per erythrocyte) 30 pg 25-34 Automated erythrocyte mean corpuscular hemoglobin concentration measurement ( mass/volume) 34 g/dL 32-36 Automated erythrocyte distribution width ratio 13.9 % 10.0-14.5 Automated blood platelet count (count/volume) 271 10*3/uL 130-400 Automated blood platelet mean volume measurement 10.7 [foz_us] 7.4-10.4 Automated blood neutrophils/100 leukocytes 70 % 42-75 Automated blood lymphocytes/100 leukocytes 25 % 12-44 Blood monocytes/100 leukocytes 5 % 0-12 Automated blood eosinophils/100 leukocytes 0 % 0-10 Automated blood basophils/100 leukocytes 0 % 0-10 Blood neutrophils automated count (number/volume) 6.4 10*3 1.8-7.8 Blood lymphocytes automated count (number/volume) 2.3 10*3 1.0-4.0 Blood monocytes automated count (number/volume) 0.5 10*3 0.0-1.0 Automated eosinophil count 0.0 10*3/uL 0.0-0.3 Automated blood basophil count (count/volume) 0.0 10*3/uL 0.0-0.1 PT panel in platelet poor plasma by coagulation assay - 11/13/16 12:30 Prothrombin time (PT) in platelet poor plasma by coagulation assay 11.4 s 12.2-14.7 INR in platelet poor plasma or blood by coagulation assay 0.9 0.8-1.4 Whole blood basic metabolic panel - 11/13/16 12:30 Serum or plasma sodium measurement (moles/volume) 138 mmol/L 135-145 Serum or plasma potassium measurement (moles/volume) 4.0 mmol/L 3.6-5.0 Serum or plasma chloride measurement (moles/volume) 105 mmol/L 98-107 Carbon dioxide 21 mmol/L 21-32 Serum or plasma anion gap determination (moles/volume) 12 mmol/L 5-14 Serum or plasma urea nitrogen measurement (mass/volume) 14 mg/dL 7-18 Serum or plasma creatinine measurement (mass/volume) 0.82 mg/dL 0.60-1.30 Serum or plasma urea nitrogen/creatinine mass ratio 17 NRG Serum or plasma creatinine measurement with calculation of estimated glomerular filtration rate > NRG Serum or plasma glucose measurement (mass/volume) 119 mg/dL 70-105 Serum or plasma calcium measurement (mass/volume) 9.6 mg/dL 8.5-10.1 Blood type T Indirect antibody screen panel - 11/13/16 12:30 ABO+Rh group AN NRG Blood group antibody screen NEGATIVE NRG Methicillin resistant Staphylococcus aureus (MRSA) screening culture - 12:30 MRSA SCREEN RESULT MRSA ISOLATED NRG Complete urinalysis with reflex to culture - 11/13/16 12:48 Urine color determination YELLOW NRG Urine clarity determination CLEAR NRG Urine pH measurement by test strip 6 5-9 Specific gravity of urine by test strip 1.020 1.016- 1.022 Urine protein assay by test strip, semi-quantitative 1+ NEGATIVE Urine glucose detection by automated test strip NEGATIVE NEGATIVE Erythrocytes detection in urine sediment by light microscopy NEGATIVE NEGATIVE Urine ketones detection by automated test strip NEGATIVE NEGATIVE Urine nitrite detection by test strip NEGATIVE NEGATIVE Urine total bilirubin detection by test strip NEGATIVE NEGATIVE Urine urobilinogen measurement by automated test strip (mass/volume) NORMAL NORMAL Urine leukocyte esterase detection by dipstick 2+ NEGATIVE Automated urine sediment erythrocyte count by microscopy (number/high power field) NONE NRG Automated urine sediment leukocyte count by microscopy (number/high power field ) [HPF] NRG Bacteria detection in urine sediment by light microscopy TRACE NRG Squamous epithelial cells detection in urine sediment by light microscopy 2-5 NRG Crystals detection in urine sediment by light microscopy NONE NRG Casts detection in urine sediment by light microscopy NONE NRG Mucus detection in urine sediment by light microscopy SMALL NRG Complete urinalysis with reflex to culture NO NRG Blood type T Indirect antibody screen panel - 11/26/16 06:19 ABO+Rh group AN NRG Transfusion band number [id number] NRG Blood group antibody screen NEGATIVE NRG Whole blood basic metabolic panel - 11/27/16 04:04 Serum or plasma sodium measurement (moles/volume) 138 mmol/L 135-145 Serum or plasma potassium measurement (moles/volume) 4.3 mmol/L 3.6-5.0 Serum or plasma chloride measurement (moles/volume) 104 mmol/L 98-107 Carbon dioxide 24 mmol/L 21-32 Serum or plasma anion gap determination (moles/volume) 10 mmol/L 5-14 Serum or plasma urea nitrogen measurement (mass/volume) 17 mg/dL 7-18 Serum or plasma creatinine measurement (mass/volume) 0.73 mg/dL 0.60-1.30 Serum or plasma urea nitrogen/creatinine mass ratio 23 NRG Serum or plasma creatinine measurement with calculation of estimated glomerular filtration rate > NRG Serum or plasma glucose measurement (mass/volume) 111 mg/dL 70-105 Serum or plasma calcium measurement (mass/volume) 8.8 mg/dL 8.5-10.1 Automated blood complete blood count (hemogram) panel - 11/27/16 04:54 Blood leukocytes automated count (number/volume) 14.1 10*3/uL 4.3-11.0 Blood erythrocytes automated count (number/volume) 3.39 10*6/uL 4.35-5.85 Venous blood hemoglobin measurement (mass/volume) 10.3 g/dL 11.5-16.0 Blood hematocrit (volume fraction) 32 % 35-52 Automated erythrocyte mean corpuscular volume 93 [foz_us] 80-99 Automated erythrocyte mean corpuscular hemoglobin (mass per erythrocyte) 30 pg 25-34 Automated erythrocyte mean corpuscular hemoglobin concentration measurement ( mass/volume) 33 g/dL 32-36 Automated erythrocyte distribution width ratio 13.9 % 10.0-14.5 Automated blood platelet count (count/volume) 243 10*3/uL 130-400 Automated blood platelet mean volume measurement 10.2 [foz_us] 7.4-10.4 Automated blood complete blood count (hemogram) panel - 11/28/16 05:30 Blood leukocytes automated count (number/volume) 10.8 10*3/uL 4.3-11.0 Blood erythrocytes automated count (number/volume) 3.20 10*6/uL 4.35-5.85 Venous blood hemoglobin measurement (mass/volume) 9.7 g/dL 11.5-16.0 Blood hematocrit (volume fraction) 30 % 35-52 Automated erythrocyte mean corpuscular volume 93 [foz_us] 80-99 Automated erythrocyte mean corpuscular hemoglobin (mass per erythrocyte) 30 pg 25-34 Automated erythrocyte mean corpuscular hemoglobin concentration measurement ( mass/volume) 33 g/dL 32-36 Automated erythrocyte distribution width ratio 13.7 % 10.0-14.5 Automated blood platelet count (count/volume) 213 10*3/uL 130-400 Automated blood platelet mean volume measurement 10.5 [foz_us] 7.4-10.4 Whole blood basic metabolic panel - 11/28/16 05:30 Serum or plasma sodium measurement (moles/volume) 137 mmol/L 135-145 Serum or plasma potassium measurement (moles/volume) 4.1 mmol/L 3.6-5.0 Serum or plasma chloride measurement (moles/volume) 103 mmol/L 98-107 Carbon dioxide 23 mmol/L 21-32 Serum or plasma anion gap determination (moles/volume) 11 mmol/L 5-14 Serum or plasma urea nitrogen measurement (mass/volume) 17 mg/dL 7-18 Serum or plasma creatinine measurement (mass/volume) 0.69 mg/dL 0.60-1.30 Serum or plasma urea nitrogen/creatinine mass ratio 25 NRG Serum or plasma creatinine measurement with calculation of estimated glomerular filtration rate > NRG Serum or plasma glucose measurement (mass/volume) 108 mg/dL 70-105 Serum or plasma calcium measurement (mass/volume) 9.0 mg/dL 8.5-10.1 Comp. Metabolic Panel (14) - 05/22/17 14:04 Glucose, Serum 97 mg/dL 65-99 BUN 15 mg/dL 6-24 Creatinine, Serum 0.70 mg/dL 0.57-1.00 eGFR If NonAfricn Am 95 mL/min/1.73 >59 eGFR If Africn Am 110 mL/min/1.73 >59 BUN/Creatinine Ratio 21 9-23 Sodium, Serum 141 mmol/L 134-144 Potassium, Serum 4.5 mmol/L 3.5-5.2 Chloride, Serum 100 mmol/L 96-106 Carbon Dioxide, Total 22 mmol/L 18-29 Calcium, Serum 9.4 mg/dL 8.7-10.2 Protein, Total, Serum 7.4 g/dL 6.0-8.5 Albumin, Serum 4.6 g/dL 3.5-5.5 Globulin, Total 2.8 g/dL 1.5-4.5 A/G Ratio 1.6 1.2-2.2 Bilirubin, Total 0.2 mg/dL 0.0-1.2 Alkaline Phosphatase, S 133 IU/L 39-117 AST (SGOT) 13 IU/L 0-40 ALT (SGPT) 22 IU/L 0-32 Lipid Panel - 05/22/17 14:04 Cholesterol, Total 322 mg/dL 100-199 Triglycerides 911 mg/dL 0-149 HDL Cholesterol 36 mg/dL >39 VLDL Cholesterol Haris Comment mg/dL 5-40 LDL Cholesterol Calc Comment mg/dL 0-99 Hemoglobin A1c - 05/22/17 14:04 Hemoglobin A1c 5.8 % 4.8-5.6 LIPID PANEL - 09/08/18 16:18 CHOLESTEROL, TOTAL 302 mg/dL <200 HDL CHOLESTEROL 35 mg/dL >50 TRIGLYCERIDES 714 mg/dL <150 LDL-CHOLESTEROL mg/dL (calc) NRG CHOL/HDLC RATIO 8.6 (calc) <5.0 NON HDL CHOLESTEROL 267 mg/dL (calc) <130 Complete blood count (CBC) with automated white blood cell (WBC) differential - 12/08/18 09:40 Blood leukocytes automated count (number/volume) 6.9 10*3/uL 4.3-11.0 Blood erythrocytes automated count (number/volume) 4.64 10*6/uL 4.35-5.85 Venous blood hemoglobin measurement (mass/volume) 14.2 g/dL 11.5-16.0 Blood hematocrit (volume fraction) 42 % 35-52 Automated erythrocyte mean corpuscular volume 91 [foz_us] 80-99 Automated erythrocyte mean corpuscular hemoglobin (mass per erythrocyte) 31 pg 25-34 Automated erythrocyte mean corpuscular hemoglobin concentration measurement ( mass/volume) 34 g/dL 32-36 Automated erythrocyte distribution width ratio 13.6 % 10.0-14.5 Automated blood platelet count (count/volume) 306 10*3/uL 130-400 Automated blood platelet mean volume measurement 10.0 [foz_us] 7.4-10.4 Automated blood neutrophils/100 leukocytes 64 % 42-75 Automated blood lymphocytes/100 leukocytes 28 % 12-44 Blood monocytes/100 leukocytes 6 % 0-12 Automated blood eosinophils/100 leukocytes 1 % 0-10 Automated blood basophils/100 leukocytes 0 % 0-10 Blood neutrophils automated count (number/volume) 4.4 10*3 1.8-7.8 Blood lymphocytes automated count (number/volume) 1.9 10*3 1.0-4.0 Blood monocytes automated count (number/volume) 0.4 10*3 0.0-1.0 Automated eosinophil count 0.1 10*3/uL 0.0-0.3 Automated blood basophil count (count/volume) 0.0 10*3/uL 0.0-0.1 PT panel in platelet poor plasma by coagulation assay - 12/08/18 09:40 Prothrombin time (PT) in platelet poor plasma by coagulation assay 11.9 s 12.2-14.7 INR in platelet poor plasma or blood by coagulation assay 0.9 0.8-1.4 Comprehensive metabolic panel - 12/08/18 09:40 Serum or plasma sodium measurement (moles/volume) 139 mmol/L 135-145 Serum or plasma potassium measurement (moles/volume) 4.0 mmol/L 3.6-5.0 Serum or plasma chloride measurement (moles/volume) 104 mmol/L 98-107 Carbon dioxide 24 mmol/L 21-32 Serum or plasma anion gap determination (moles/volume) 11 mmol/L 5-14 Serum or plasma urea nitrogen measurement (mass/volume) 20 mg/dL 7-18 Serum or plasma creatinine measurement (mass/volume) 0.86 mg/dL 0.60-1.30 Serum or plasma urea nitrogen/creatinine mass ratio 23 NRG Serum or plasma creatinine measurement with calculation of estimated glomerular filtration rate > NRG Serum or plasma glucose measurement (mass/volume) 109 mg/dL 70-105 Serum or plasma calcium measurement (mass/volume) 9.9 mg/dL 8.5-10.1 Serum or plasma total bilirubin measurement (mass/volume) 0.4 mg/dL 0.1-1.0 Serum or plasma alkaline phosphatase measurement (enzymatic activity/volume) 161 U/L 40-136 Serum or plasma aspartate aminotransferase measurement (enzymatic activity/ volume) 29 U/L 5-34 Serum or plasma alanine aminotransferase measurement (enzymatic activity/volume ) 36 U/L 0-55 Serum or plasma protein measurement (mass/volume) 7.8 g/dL 6.4-8.2 Serum or plasma albumin measurement (mass/volume) 4.3 g/dL 3.2-4.5 CALCIUM CORRECTED 9.7 mg/dL 8.5-10.1 Erythrocyte sedimentation rate by westergren method - 12/08/18 09:40 Erythrocyte sedimentation rate by westergren method 17 mm 0-30 Blood type T Indirect antibody screen panel - 12/08/18 09:40 ABO+Rh group AN NRG Blood group antibody screen NEGATIVE NRG Methicillin resistant Staphylococcus aureus (MRSA) screening culture - 09:45 Methicillin resistant Staphylococcus aureus (MRSA) screening culture NEG NRG Complete urinalysis with reflex to culture - 12/08/18 09:50 Urine color determination YELLOW NRG Urine clarity determination CLEAR NRG Urine pH measurement by test strip 5 5-9 Specific gravity of urine by test strip 1.025 1.016- 1.022 Urine protein assay by test strip, semi-quantitative 1+ NEGATIVE Urine glucose detection by automated test strip NEGATIVE NEGATIVE Erythrocytes detection in urine sediment by light microscopy NEGATIVE NEGATIVE Urine ketones detection by automated test strip NEGATIVE NEGATIVE Urine nitrite detection by test strip NEGATIVE NEGATIVE Urine total bilirubin detection by test strip NEGATIVE NEGATIVE Urine urobilinogen measurement by automated test strip (mass/volume) 1 mg/dL NORMAL Urine leukocyte esterase detection by dipstick 2+ NEGATIVE Automated urine sediment erythrocyte count by microscopy (number/high power field) NONE NRG Automated urine sediment leukocyte count by microscopy (number/high power field ) [HPF] NRG Bacteria detection in urine sediment by light microscopy NEGATIVE NRG Squamous epithelial cells detection in urine sediment by light microscopy 2-5 NRG Crystals detection in urine sediment by light microscopy NONE NRG Casts detection in urine sediment by light microscopy NONE NRG Mucus detection in urine sediment by light microscopy SMALL NRG Complete urinalysis with reflex to culture NO NRG Encounters ACCT No. Visit Date/Time Discharge Status Pt. Type Provider Facility Loc./Unit Complaint [id number] 06/12/2017 00:00:00 06/12/2017 23:59:59 CLS Outpatient Scanned Documents [id number] 11/22/2016 00:00:00 11/22/2016 23:59:59 CLS Outpatient Scanned Documents [id number] 11/13/2016 00:00:00 11/13/2016 23:59:59 CLS Outpatient Scanned Documents [id number] 11/12/2016 00:00:00 11/12/2016 23:59:59 CLS Outpatient Scanned Documents [id number] 02/01/2016 12:17:48 02/01/2016 23:59:59 CLS Outpatient RUPAL MALLORY [facility] Annual Exam non obstructive CAD [id number] 06/07/2015 14:13:17 06/07/2015 23:59:59 CLS Outpatient [facility] WAYNE MOLE BIOPSY/REMOVAL [id number] 05/26/2015 14:34:55 05/26/2015 23:59:59 CLS Outpatient [facility] SHANIKA RAY F/U [id number] 05/26/2015 00:00:00 05/26/2015 23:59:59 CLS Outpatient Scanned Documents [id number] 05/23/2015 09:58:56 05/23/2015 23:59:59 CLS Outpatient [facility] lipid/comp [id number] 05/17/2015 14:32:08 05/17/2015 23:59:59 CLS Outpatient [facility] braces for legs needs different size [id number] 05/17/2015 14:28:36 05/17/2015 23:59:59 CLS Outpatient [facility] [id number] 05/15/2015 14:04:40 05/15/2015 23:59:59 CLS Outpatient [facility] has a bleeding mole on ear [id number] 05/03/2015 14:24:36 05/03/2015 23:59:59 CLS Outpatient [facility] SW [id number] 04/26/2015 14:18:43 04/26/2015 23:59:59 CLS Outpatient [facility] sw ray f/u [id number] 04/19/2015 13:00:02 04/19/2015 23:59:59 CLS Outpatient [facility] [id number] 04/13/2015 11:33:46 04/13/2015 23:59:59 CLS Outpatient [facility] SW RAY F/U [id number] 03/29/2015 12:56:17 03/29/2015 23:59:59 CLS Outpatient MannyRupal Raul [facility] RAY INITIAL APPT [id number] 03/07/2015 10:08:10 03/07/2015 23:59:59 CLS Outpatient [facility] MD NUNEZ KNEE PAIN [id number] 02/20/2015 10:09:08 02/20/2015 23:59:59 CLS Outpatient [facility] juancho mohsen both knee pain [id number] 02/06/2015 09:03:34 02/06/2015 23:59:59 CLS Outpatient MannyRupal Raul [facility] F/U-HTN [id number] 12/08/2018 09:08:00 12/08/2018 13:43:00 DIS Outpatient NIKKIE COOK, RASHID Santamaria [facility] PREOP RIGHT KNEE OSTEOARTHRITIS [id number] 08/16/2017 00:04:00 08/16/2017 01:04:00 DIS Emergency MICHELLE HERRING MD [facility] ER BITE ON LEFT ANKLE [id number] 07/02/2017 14:00:00 07/02/2017 23:59:59 CLS Preadmit STACY COOK, FELICIA Meza [facility] CARD CORONARY ARTERY DISEASE [id number] 01/09/2017 10:41:00 01/22/2017 14:37:00 DIS Outpatient ALESSANDRO AUSTEN BECK [facility] REHAB S/P L TKR [id number] 11/26/2016 05:53:00 11/28/2016 11:24:00 DIS Inpatient ALESSANDRO AUSTEN BECK [facility] 4TH LEFT KNEE SOA [id number] 11/13/2016 11:56:00 11/13/2016 12:50:00 DIS Outpatient ALESSANDRO AUSTEN BECK [facility] PREOP LEFT KNEE SOA [id number] 12/16/2018 05:46:00 ACT Inpatient NIKKIE COOK, RASHID Santamaria [facility] SURG RIGHT KNEE OSTEOARTHRITIS [id number] 11/23/2018 08:20:00 11/23/2018 23:59:59 CLS Outpatient DEBBIE [facility] [id number] 09/08/2018 16:00:00 Document Registration [id number] 12/31/2015 14:38:00 12/31/2015 15:56:00 DIS Emergency ELEONORA, [facility] ER Multiple Complaints [id number] 11/14/2015 12:10:00 11/14/2015 13:20:00 DIS Emergency Fabian Macias [facility] ER General Medical [id number] 06/11/2015 09:00:00 06/11/2015 12:03:00 DIS Emergency Dimas Christopher [facility] ER Orthopedic [id number] 09/26/2016 13:06:00 Document Registration [id number] 05/23/2017 10:09:00 Document Registration
--- OUTSIDE RECORDS SUMMARY | 2018-12-16 05:55 | XMS REPORT ---
Author Author DEBBIE GILBERT Organization [facility] Address [address] [place] [address] Care Team Providers Care Mmi Teacher Name Role Phone DEBBIE GILBERT Unavailable PROBLEMS Type Condition ICD9-CM Code [id number] Code Onset Dates Condition Status SNOMED Code Problem Arthritis M19.90 Active 6153339 Problem Coronary artery disease involving [place] coronary artery of [place] heart without angina pectoris I25.10 Active 3852938584632 Problem Hyperlipidemia, unspecified hyperlipidemia type E78.5 Active 79050303 Problem Pain in right shoulder M25.511 Active 06657775 Problem Severe depression F32.2 Active 126378053 Problem Other chronic pain G89.29 Active 29843852 Problem Anxiety F41.9 Active 27711772 Problem Essential hypertension I10 Active 80665734 ALLERGIES Substance Reaction Event Type Date Status Codeine Sulfate headache Drug Allergy May, Active ENCOUNTERS Encounter Location Date Diagnosis [facility] [id number] [place] [address] 11941- 3547 Jun, Medicare annual wellness visit, initial Z00.00 [facility] [address] [place] [address] 96561- 8672 Apr, [facility] [id number] [place] [address] 81087- 5646 Apr, [facility] [id number] [place] [address] 67281- 9735 Nov, Pain in right shoulder M25.511 [facility] [id number] [place] [address] 76322 -2378 Nov, Acute maxillary sinusitis, recurrence not specified J01.00 [facility] [id number] [place] [address] 57847 -8767 Aug, Cellulitis L03.90 [place] [address] [place] [address] 88156- 1413 Aug, Arthritis M19.90 ; Other chronic pain G89.29 and Biceps tendonitis on right M75.21 [place] [id number] [place] [address] 40698- 4822 Jun, Pain in right shoulder M25.511 [place] [id number] [place] [address] 10794- 8063 Jun, Pain in right shoulder M25.511 [place] [id number] [place] [address] 88081- 9454 Jun, Coronary artery disease involving [place] coronary artery of [place] heart without angina pectoris I25.10 ; Essential hypertension I10 ; Hyperlipidemia, unspecified hyperlipidemia type E78.5 and Anxiety F41.9 [place] [address] [address] 2886 May, Pain in right shoulder M25.511 and Biceps tendonitis, right M75.21 [place] [id number] [place] [address] 45496- 4466 May, Essential hypertension I10 ; Coronary artery disease involving [place] coronary artery of [place] heart without angina pectoris I25.10 ; Anxiety F41.9 ; Severe depression F32.2 ; Screening for diabetes mellitus (DM ) Z13.1 ; Screening for lipid disorders Z13.220 ; Pain in right shoulder M25.511 ; Bug bites, initial encounter W57.XXXA ; Arthritis M19.90 and Other chronic pain G89.29 [place] [address] [address] May, [facility] [address] [place] [id number] [place] [address] 56197 -7105 Feb, Acute upper respiratory infection, unspecified J06.9 [facility] [address] [place] [address] 40100 [address]5093 Dec, Acute non-recurrent maxillary sinusitis J01.00 and Abscessed tooth K04.7 [facility] [id number] [address] 14 Sep, 2016 Pain in right knee M25.561 ; Pain in left knee M25.562 ; Other chronic pain G89.29 ; Sore throat J02.9 ; Possible exposure to STD Z20.2 and Seasonal allergic rhinitis due to pollen J30.1 [facility] [address] [address] 17 Aug, 2016 Arthritis M19.90 ; Coronary artery disease involving [place] coronary artery of [place] heart without angina pectoris I25.10 and Depression, unspecified depression type F32.9 [facility] [id number] [address] 06 Aug, 2016 Bug bites, initial encounter W57.XXXA IMMUNIZATIONS No Known Immunizations SOCIAL HISTORY Never Assessed REASON FOR VISIT Establish Care, [facility] [place], depression, out of medications approx 3 months PLAN OF CARE Activity Details Follow Up 4 Weeks with Bekah f/brendan CHA Reason: VITAL SIGNS Height 66 in 2017-05-22 Weight 184 lbs 2017-05-22 Temperature 98.5 degrees Fahrenheit 2017-05-22 Heart Rate 100 bpm 2017-05-22 Respiratory Rate 20 2017-05-22 BMI 29.70 kg/m2 2017-05-22 Blood pressure systolic 152 mmHg 2017-05-22 Blood pressure diastolic 106 mmHg 2017-05-22 MEDICATIONS Medication Instructions Dosage Frequency Start Date End Date Duration Status Tramadol HCl 50 mg Orally BID PRN 1 tablet as needed Jun, 28 days Active Cetirizine HCl 10 mg Orally Once a day 1 tablet 24h 14 Sep, 2016 Not -Taking Aspir-81 81 MG Orally Once a day 1 tablet 24h 8 Dec, 2017 30 days Active Cetirizine HCl 10 MG Orally Once a day 1 tablet 24h 21 Feb, 2017 30 day (s) Not-Taking Nicolaus 3 1000 MG Orally Once a day 1 capsule 24h Not-Taking Crestor 40 mg Orally Once a day 1 tablet 24h 30 days Active Sertraline HCl 100 mg Orally Once a day 1/2 tablet for 1 week then 1 tab daily 24h 30 days Active Ascorbic Acid 100 MG Orally Once a day 1 tablet 24h Not-Taking Cyanocobalamin 1000 MCG Orally Once a day 1 tablet 24h Not-Taking Metoprolol Tartrate 50 mg Orally Twice a day 1/2 tablet 12h 30 days Active Multivitamin Adult - Not-Taking Hydrocodone-Acetaminophen 10-325 MG Orally every 6 hrs 1 tablet as needed 6h Not-Taking RESULTS Name Result Date Reference Range A1C 2017-05-22 Hemoglobin A1c 5.8 4.8-5.6 LIPID PANEL 2017-05-22 Cholesterol, Total 322 100-199 Triglycerides 911 0-149 HDL Cholesterol 36 >39 VLDL Cholesterol Haris 5-40 LDL Cholesterol Calc 0-99 CMP 2017-05-22 Glucose, Serum 97 65-99 BUN 15 6-24 Creatinine, Serum 0.70 0.57-1.00 eGFR If NonAfricn Am 95 >59 eGFR If Africn Am 110 >59 BUN/Creatinine Ratio 21 9-23 Sodium, Serum 141 134-144 Potassium, Serum 4.5 3.5-5.2 Chloride, Serum 100 96-106 Carbon Dioxide, Total 22 18-29 Calcium, Serum 9.4 8.7-10.2 Protein, Total, Serum 7.4 6.0-8.5 Albumin, Serum 4.6 3.5-5.5 Globulin, Total 2.8 1.5-4.5 A/G Ratio 1.6 1.2-2.2 Bilirubin, Total 0.2 0.0-1.2 Alkaline Phosphatase, S 133 39-117 AST (SGOT) 13 0-40 ALT (SGPT) 22 0-32 PROCEDURES Procedure Date Ordered Result Body Site EKG, TRACING (IN-HOUSE) 2017-05-22 N/A GLYCATED HEMOGLOBIN TEST May 22, 2017 VENIPUNCT, ROUTINE* May 22, 2017 [facility] May 22, 2017 [facility] VISIT ESTABLISHED PATIENT May 22, 2017 ELECTROCARDIOGRAM, TRACING May 22, 2017 INSTRUCTIONS MEDICATIONS ADMINISTERED No Known Medications [...] in Left hand Hospitalization History Psych Eval-Stormont [place] 2014
--- OUTSIDE RECORDS SUMMARY | 2018-12-16 05:55 | XMS REPORT ---
Author Author LINNETTE CRUZ [facility] Address [address] [place] [address] Care Team Providers Care Oil And Gas Specialist Name Role Phone LINNETTE CRUZ Unavailable PROBLEMS Type Condition ICD9-CM Code [id number] Code Onset Dates Condition Status SNOMED Code Problem Coronary artery disease involving [place] coronary artery of [place] heart without angina pectoris I25.10 Active 0708178921968 Problem Other chronic pain G89.29 Active 51085520 Problem Arthritis M19.90 Active 0254820 Problem Severe episode of recurrent major depressive disorder, without psychotic features F33.2 Active 16120420 Problem Hyperlipidemia, unspecified hyperlipidemia type E78.5 Active 05624516 Problem Essential hypertension I10 Active 91348652 Problem Severe depression F32.2 Active 507794931 Problem Pain in right shoulder M25.511 Active 85386860 Problem Anxiety F41.9 Active 64709225 ALLERGIES Substance Reaction Event Type Date Status Codeine Sulfate headache Drug Allergy Nov, Active ENCOUNTERS Encounter Location Date Diagnosis [place] [address] [place] [address] 46590- 4309 Jun, Medicare annual wellness visit, initial Z00.00 [place] [address] [place] [address] 42818- 4949 Apr, [facility] [id number] [place] [address] 12796- 3579 Apr, [facility] [id number] [place] [address] 57734- 4606 Apr, [facility] [id number] [place] [address] 51984- 4833 Apr, Severe episode of recurrent major depressive disorder, without psychotic features F33.2 [facility] [id number] [place] [address] 86521- 2746 Nov, Pain in right shoulder M25.511 [facility] [id number] [place] [address] 81060 -6193 Nov, Acute maxillary sinusitis, recurrence not specified J01.00 [facility] [id number] [place] [address] 86031 -3099 Aug, Cellulitis L03.90 [place] [address] [address]476- 1242 Aug, Arthritis M19.90 ; Other chronic pain G89.29 and Biceps tendonitis on right M75.21 [place] [address] 67403- 4759 Jun, Pain in right shoulder M25.511 [place] [address] 71982- 0974 Jun, Pain in right shoulder M25.511 [place] [id number] [place] [address] 08233- 5598 Jun, Coronary artery disease involving [place] coronary artery of [place] heart without angina pectoris I25.10 ; Essential hypertension I10 ; Hyperlipidemia, unspecified hyperlipidemia type E78.5 and Anxiety F41.9 [place] [id number] [place] [address] 85613- 2250 May, Pain in right shoulder M25.511 and Biceps tendonitis, right M75.21 [place] [id number] [place] [address] 60899- 5018 May, Essential hypertension I10 ; Coronary artery disease involving [place] coronary artery of [place] heart without angina pectoris I25.10 ; Anxiety F41.9 ; Severe depression F32.2 ; Screening for diabetes mellitus (DM ) Z13.1 ; Screening for lipid disorders Z13.220 ; Pain in right shoulder M25.511 ; Bug bites, initial encounter W57.XXXA ; Arthritis M19.90 and Other chronic pain G89.29 [place] [address], [place] [address] May, [facility] [address] [address] Feb, Acute upper respiratory infection, unspecified J06.9 [facility] [place] [id number] [place] [address] 87788 -6209 08 Dec, 2016 Acute non-recurrent maxillary sinusitis J01.00 and Abscessed tooth K04.7 [facility] [address] [address] 14 Sep, 2016 Pain in right knee M25.561 ; Pain in left knee M25.562 ; Other chronic pain G89.29 ; Sore throat J02.9 ; Possible exposure to STD Z20.2 and Seasonal allergic rhinitis due to pollen J30.[address] [address]74- [address] Aug, Arthritis M19.90 ; Coronary artery disease involving [place] coronary artery of [place] heart without angina pectoris I25.10 and Depression, unspecified depression type F32.9 [facility] [place] [id number] [place] [address] 67742 -9165 06 Aug, 2016 Bug bites, initial encounter W57.XXXA IMMUNIZATIONS No Known Immunizations SOCIAL HISTORY Never Assessed REASON FOR VISIT sinus infection Pt reports sinus congestion and pressure for over a month DEVIN Ricci PLAN OF CARE Activity Details Follow Up prn Reason: VITAL SIGNS Height 66 in 2017-11-14 Weight 189.2 lbs 2017-11-14 Temperature 97.9 degrees Fahrenheit 2017-11-14 Heart Rate 90 bpm 2017-11-14 Respiratory Rate 20 2017-11-14 BMI 30.53 kg/m2 2017-11-14 Blood pressure systolic 148 mmHg 2017-11-14 Blood pressure diastolic 90 mmHg 2017-11-14 MEDICATIONS Medication Instructions Dosage Frequency Start Date End Date Duration Status Ascorbic Acid 100 MG Orally Once a day 1 tablet 24h Not-Taking Cyanocobalamin 1000 MCG Orally Once a day 1 tablet 24h Not-Taking [place] 3 1000 MG Orally Once a day 1 capsule 24h Not-Taking Hydrocodone-Acetaminophen 10-325 MG Orally every 6 hrs 1 tablet as needed 6h Not-Taking Mucinex 600 MG Orally every 12 hrs 1 tablet as needed 12h Nov, Nov, 10 days Active Aspir-81 81 MG Orally Once a day 1 tablet 24h 8 Dec, 2017 30 days Active Tramadol HCl 50 mg Orally BID PRN 1 tablet as needed 28 days Not- Taking Augmentin 875-125 MG Orally every 12 hrs 1 tablet 12h Nov,Nov 10 day(s) Active Multivitamin Adult - Not-Taking Crestor 40 mg Orally Once a day 1 tablet 24h 30 days Not-Taking Meloxicam 15 MG Orally Once a day 1 tablet 24h Not-Taking Cetirizine HCl 10 mg Orally Once a day 1 tablet 24h 14 Sep, 2016 Not -Taking Sertraline HCl 100 mg Orally Once a day 1 tablet 24h Not-Taking Metoprolol Tartrate 50 mg Orally one time 1 tabet Not-Taking RESULTS No Results PROCEDURES Procedure Date Ordered Result Body Site [facility] VISIT ESTABLISHED PATIENT Nov 14, 2017 INSTRUCTIONS MEDICATIONS ADMINISTERED No Known Medications [...] in Left hand Hospitalization History Psych Eval-Stormont [place] 2014
--- OUTSIDE RECORDS SUMMARY | 2018-12-16 05:55 | XMS REPORT ---
Author Author DEBBIE GILBERT Organization [facility] Address [address] [place] [address] Care Team Providers Care Retirement Sales Consultant Name Role Phone DEBBIE GILBERT Unavailable PROBLEMS Type Condition ICD9-CM Code VBE52-BF Code Onset Dates Condition Status SNOMED Code Problem Arthritis M19.90 Active 0674447 Problem Seasonal allergic rhinitis due to pollen J30.1 Active 77961692 Problem Depression, unspecified depression type F32.9 Active 60425549 Problem Coronary artery disease involving [place] coronary artery of [place] heart without angina pectoris I25.10 Active 8658898580412 Problem Hyperlipidemia, unspecified hyperlipidemia type E78.5 Active 12051420 Problem Pain in right shoulder M25.511 Active 68998094 Problem Severe depression F32.2 Active 754908622 Problem Other chronic pain G89.29 Active 46065623 Problem Anxiety F41.9 Active 68528490 Problem Essential hypertension I10 Active 54021404 ALLERGIES No Information ENCOUNTERS Encounter Location Date Diagnosis [facility] [id number] [place] [address] 22681- 2751 March, Medicare annual wellness visit, initial Z00.00 [facility] [id number] [place] [address] 15967- 6089 Nov, Pain in right shoulder M25.[address] [facility] [id number] [place] [address] 64443 -4604 Nov, Acute maxillary sinusitis, recurrence not specified J01.[address] [facility] [id number] [place] [address] 86259 -6125 Aug, Cell[address] L03.90 [facility] [id number] [place] [address] 13061- 7383 02 Aug, 2017 Arthritis M19.90 ; Other chronic pain G89.29 and Biceps tendonitis on right M75.21 [place] [id number] [place] [address] 18544- 8502 Jun, Pain in right shoulder M25.511 [place] [id number] [place] [address] 85745- 2237 Jun, Pain in right shoulder M25.511 [place] [id number] [place] [address] 34644- 1872 Jun, Coronary artery disease involving [place] coronary artery of [place] heart without angina pectoris I25.10 ; Essential hypertension I10 ; Hyperlipidemia, unspecified hyperlipidemia type E78.5 and Anxiety F41.[address] [address]- [address] May, Pain in right shoulder M25.511 and Biceps tendonitis, right M75.[address] [address]32- [address] May, Essential hypertension I10 ; Coronary artery disease involving [place] coronary artery of [place] heart without angina pectoris I25.10 ; Anxiety F41.9 ; Severe depression F32.2 ; Screening for diabetes mellitus (DM ) Z13.1 ; Screening for lipid disorders Z13.220 ; Pain in right shoulder M25.511 ; Bug bites, initial encounter W57.XXXA ; Arthritis M19.90 and Other chronic pain G89.29 [place] [id number] [place] [address] 97627- 2215 May, [facility] [address] [place] [id number] [place] [address] 29932 -[address]004 Feb, Acute upper respiratory infection, unspecified J06.9 [facility] [address] [place] [id number] [place] [address] 75121 -3142 Dec, Acute non-recurrent maxillary sinusitis J01.00 and Abscessed tooth K04.7 [facility] [place] [id number] [place] [address]2015 -5939 Sep, Pain in right knee M25.561 ; Pain in left knee M25.562 ; Other chronic pain G89.29 ; Sore throat J02.9 ; Possible exposure to STD Z20.2 and Seasonal allergic rhinitis due to pollen J30.1 [facility] [address] [facility] [id number] [address] Aug, Arthritis M19.90 ; Coronary artery disease involving [place] coronary artery of [place] heart without angina pectoris I25.10 and Depression, unspecified depression type F32.[address] [facility] [address] [facility] [id number] [place] [address] Aug, Bug bites, initial encounter W57.XXXA IMMUNIZATIONS No Known Immunizations SOCIAL HISTORY Never Assessed REASON FOR VISIT Controlled Refill Request PLAN OF CARE VITAL SIGNS [...] in Left hand Hospitalization History Psych Eval-Stormont Morral 2014
[2018-12-16] MEDS: LACTATED RINGERS 1,000 ML IV PRN ×2 (06:25→08:00)
[2018-12-16] MEDS ORDERED: CEFUROXIME INJECTION 1,500 MG in WATER (STERILE) FOR INJECTION 15 ML IV ONE (06:45)
[2018-12-16] MEDS ORDERED: ROPIVACAINE 5MG/ML 30ML VIAL ONE (06:46)
[2018-12-16] MEDS ORDERED: MIDAZOLAM 2 MG/2 ML (VERSED) VIAL ONE (06:46)
[2018-12-16] MEDS ORDERED: LIDOCAINE PF 2% 5 ML (XYLOCAINE) VIAL ONE ×2 (06:46→07:07)
[2018-12-16] MEDS ORDERED: fentaNYL INJECTION 100 MCG/2 ML AMP ONE ×2 (07:07→08:03)
[2018-12-16] MEDS ORDERED: proPOfol 200 MG/20 ML (DIPRIVAN) VIAL IV ONE (07:07)
[2018-12-16] MEDS ORDERED: ONDANSETRON 4 MG/2 ML (SDV) Z0FRAN ONE (07:07)
[2018-12-16] MEDS ORDERED: DEXAMETHASONE 10 MG/ML (DECADRON) 1 ML VIAL ONE (07:07)
[2018-12-16] MEDS ORDERED: FAMOTIDINE 20MG/2ML IV (PEPCID) ONE (07:11)
[2018-12-16] MEDS ORDERED: LACTATED RINGERS 1,000 ML IV PRN (07:12)
[2018-12-16] MEDS ORDERED: ONDANSETRON 4 MG/2 ML (SDV) Z0FRAN IVP PRN ×2 (07:15→09:15)
[2018-12-16] MEDS ORDERED: ACETAMINOPHEN 325 MG TABLET PO PRN (07:15)
[2018-12-16] MEDS ORDERED: diphenhydrAMINE 50 MG/ML INJ (BENADRYL) IVP PRN (07:15)
[2018-12-16] MEDS ORDERED: morphine PCA 100 MG/100 ML BAG IV PRN (07:15)
[2018-12-16] MEDS ORDERED: FAMOTIDINE 20MG/2ML IV (PEPCID) IV ONE (07:15)
[2018-12-16] MEDS ORDERED: MELA1TAB8 PO (07:24)
--- NOTE | 2018-12-16 07:30 | Progress Note-Pre Operative ---
Pre-Operative Progress Note H&P Reviewed The H&P was reviewed, patient examined and no changes noted. Date Seen by Provider: Dec 16, 2018 Time Seen by Provider: 07:20 Date H&P Reviewed: Dec 16, 2018 Time H&P Reviewed: 07:11 Pre-Operative Diagnosis: right knee primary osteoarthritis RASHID LUNDY MD Dec 16, 2018 07:30
--- NOTE | 2018-12-16 07:31 | Progress Note-Post Operative ---
Post-Operative Progess Note Surgeon (s)/Comb Setter (s) Surgeon RASHID LUNDY MD Comb Setter: Goyo Paredes Pre-Operative Diagnosis right knee primary osteoarthritis Post-Operative Diagnosis right knee primary osteoarthritis Procedure & Operative Findings Date of Procedure 12/16/18 Procedure Performed/Findings right total knee arthroplasty Anesthesia Type GETA Estimated Blood Loss Estimated blood loss (mL): minimal Specimens/Packing Specimens Removed none Packing: none RASHID LUNDY MD Dec 16, 2018 07:31
[2018-12-16] MEDS ORDERED: OXYC1TAB87 PO (07:33)
--- NOTE | 2018-12-16 07:35 | D/C HH Face to Face Order ---
D/C Face to Face Orders Instructions for Patient Via [facility], Patient Instructions/FollowUp: three weeks Physician to follow Patient: three weeks Discharge Diet for Home: Regular Diet Patient Data-Allergies,Ht & Wt Patient Allergies: Coded Allergies: codeine (Verified Allergy, Mild, headache, 12/08/18) Height (Feet): 5 Height (Inches): 6.00 Weight (Pounds): 181 Weight (Ounces): 0.0 Home Health Need/Face to Face Date of Face to Face: Dec 16, 2018 Clinical Findings: Instability, Muscle weakness, Pain with ambulation, Unsteady gait I have seen Pt [id number]: Yes Discharged To: Home Diagnosis/Conditions: right total knee arthroplasty Patient is Homebound due to: Janusz fall risk due to instabilty, Muscle weakness , Pain w/ambulation Homebound Status Due to the above stated illness, injury or surgical procedure (medical condition or diagnosis) and associated clinical findings, the patient is homebound because of his/her inability to leave home except with aid of a supportive device and/or person AND leaving the home requires a considerable and taxing effort or is medically contraindicated. Pt req the following assistanc: Walker Home Health Nursing Orders Home Health Services Order: Physical Therapy-Evaluate & Treat Home Health Infusion Therapy Line Start Date: Dec 16, 2018 Line Start Time: 06 Line Type: Peripheral IV Site Location: Forearm Therapy Orders Therapy Orders: Physical Therapy, PT to assess for OT Therapy Specific Orders: Eval assistive deivces, Teach enviro modifications/ safety, Gait training, Increase strength/endurance, Provider maintenance therapy , Restore ROM DC right renee glenn and apply steri strips 12/30/18 Certify Stmt I certify that this patient is under my care and that I, a nurse practitioner or a physician; a assistant grocery working with me, had a face to face encounter that - meets the physician face to face encounter requirements with this patient as dated. RASHID LUNDY MD Dec 16, 2018 07:34
[2018-12-16] MEDS ORDERED: SEVOFLURANE (ULTANE) 15 ML INHAL SOLN ONE ×7 (07:43→08:48)
[2018-12-16] MEDS ORDERED: ROCURONIUM 10 MG/ML 5 ML SYRINGE IV ONE (08:04)
[2018-12-16] MEDS ORDERED: INTRA-ARTICULAR IU ONE ×5 (08:15)
[2018-12-16] MEDS ORDERED: morphine INJ 10 MG/ML 1ML (SYR OR VIAL) ONE (09:07)
[2018-12-16] MEDS ORDERED: HYDROmorphone 2 MG/ML VIAL (DILAUDID) IV ONE (09:15)
[2018-12-16] MEDS ORDERED: MEPERIDINE (DEMEROL) INJ 50 MG/ML IVP ONE (09:15)
[2018-12-16] MEDS ORDERED: morphine INJ 10 MG/ML 1ML (SYR OR VIAL) IVP ONE (09:15)
[2018-12-16] MEDS ORDERED: PROMETHAZINE INJ 25 MG/ML (PHENERGAN) AMP IVP ONE (09:15)
--- NOTE | 2018-12-16 09:20 | OPERATIVE REPORT ---
DATE OF SERVICE: 12/16/2018 PREOPERATIVE DIAGNOSIS: Right knee primary osteoarthritis. POSTOPERATIVE DIAGNOSIS: Right knee primary osteoarthritis. PROCEDURE: Right total knee arthroplasty. SURGEON: Jerrell Lawton MD. PRECISION AIRCRAFT STRUCTURE ASSEMBLER: CYNDEE Adam, who assisted throughout the procedure and closed the incision. ANESTHESIA: General endotracheal plus saphenous nerve block by Charli Thomas CRNA. TOURNIQUET TIME: Approximately 55 minutes at 300 mmHg. ESTIMATED BLOOD LOSS: Minimal. DRAINS: None. COMPLICATIONS: None. POSTOPERATIVE PLAN: Routine protocol. MATERIALS: MicroPort cemented size 4 femur, cemented size 4 tibia with a 10 mm insert and a cemented size 32 patellar button. STATEMENT OF MEDICAL NECESSITY: The patient is a 58-year-old female with a longstanding progressive right knee pain. Radiographs revealed severe medial and patellofemoral arthrosis. She had tried treatment with injections, anti-inflammatories and rest. Due to functional impairment and failure to improve with the conservative measures, the patient elected to proceed with surgical intervention. DESCRIPTION OF PROCEDURE: After risks and benefits of the procedure were discussed and questions were answered and informed consent was signed and placed on chart, the operative site was confirmed in the preoperative holding area initialed by the surgeon. The patient was then transported to the operating room and after adequate levels of general endotracheal anesthetic were obtained, a timeout was called confirming the operative site. The right lower extremity was prepped and draped in the usual sterile fashion. With the leg elevated and the knee flexed, tourniquet was inflated to 300 mmHg. Standard anterior approach was utilized. Hemostasis was obtained with cautery. A medial parapatellar arthrotomy was performed leaving a 1 cm cuff on the patella for later reattachment. A portion of the fat pad was resected. Subperiosteal release was performed in the proximal medial tibia being careful to stay on the bony surface. The ACL was resected. Intramedullary guide was passed into the femur. The distal cutting block was placed and the distal cut was made. The femur was sized to a size 4 and the 4 cutting block was placed parallel to the epicondylar axis. Cuts were then made from posterior to anterior. A subperiosteal release was then carefully performed in the posterior distal femur, being careful to stay on the bony surface. The intramedullary guide was passed into the tibia. The cutting block was placed. The drop javad transected the intermalleolar axis and the cut was made. The 4-baseplate was placed and the drop javad again transected the intermalleolar axis and this was repaired with a drill and keel punch. The femoral trial was made and the trochlear cut was made. A 10 mm insert was placed. The patella was then prepared by using the freehand technique and resected 10 mm off the undersurface. Peg guide was placed and the peg holes were drilled. A 32 trial was placed. Full extension was easily obtained, a 125 degrees of flexion with gravity was easily obtained. There was no anterior/posterior or medial/lateral laxity in flexion or extension. The trials were removed. The joint was irrigated with a pulse lavage. The periarticular block was placed in the posterior capsule, medial and lateral retinaculum extensor mechanism and subcutaneous tissues. The bone ends were irrigated and dried. The tibial baseplate was cemented into position. Excess cement was removed. Superior surface was irrigated and dried and the polyethylene insert was placed. The distal femur was irrigated and dried and the femoral prosthesis was cemented into position. Excessive cement was removed. The knee was brought into full extension until the cement had cured. The undersurface of the patella was irrigated and dried and the patellar button was cemented in position. Excessive cement was removed. Once the cement had cured, the knee was taken through a range of motion and the patella tracked well. There was no anterior/posterior or medial/lateral laxity in flexion or extension. There was full extension and 130 degrees of flexion with gravity. The joint was further irrigated with a pulse lavage. The arthrotomy was closed with a #2 Tevdek in [id number] interrupted fashion. The subcutaneous tissues were then irrigated and dried. The knee was flexed. The patella was stable with no undue tension noted at the repair site. A total of 6 liters of pulse lavage were used throughout the procedure. A 0 Vicryl was used for deep subcutaneous tissue, 2-0 Vicryl for the superficial subcutaneous tissue, staple was used on the skin and sterile dressing was applied. The tourniquet was deflated and the patient was transferred to the recovery room awake and stable condition. Job ID: [id number] DocumentID: [id number] Dictated Date: 12/16/2018 09:03:57 [employer] Date: 12/16/2018 09:19:33 Dictated By: JERRELL LAWTON MD
--- NOTE | 2018-12-16 09:30 | Progress Note-Standard ---
Standard Progress Note Progress Notes/Assess & Plan Date Seen by a Provider: Dec 16, 2018 Time Seen by a Provider: 09:27 Progress/Assessment & Plan post op check no complaints RLE--Intact DF and PF of toes and ankle. intact sensation throughout. 2 plus DP pulse with brisk cap refill Radiographs--HW well postioned without fracture s/p RTKA mobilize as able RASHID LUNDY MD Dec 16, 2018 09:30
--- NOTE | 2018-12-16 10:38 | Diagnostic Imaging Report ---
Indication: Postop knee replacement AP lateral views of the right knee are obtained Right knee prosthesis appears in good alignment. There is no sign of fracture or device loosening. There is no unexpected foreign body postsurgery. IMPRESSION: Well aligned right knee prosthesis with no unexpected foreign body postsurgery. Dictated by: Dictated on workstation # [id number]
[2018-12-16] MEDS: NS IV 1000 ML 1,000 ML IV SCH (10:59)
[2018-12-16] MEDS: oxyCODONE/APAP 5/325MG (PERCOCET 5) TABLET PO PRN ×3 (10:59→19:13)
[2018-12-16] MEDS: SENNA W/DOCUSATE (SENOKOT S) TABLET PO SCH ×2 (11:00→20:04)
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
--- NOTE | 2018-12-16 11:52 | Physical Therapy Evaluation ---
PT Evaluation-General Medical Diagnosis Admission Date Dec 16, 2018 at 05:46 Medical Diagnosis: OA right knee Onset Date: Dec 16, 2018 Therapy Diagnosis Therapy Diagnosis: weakness; abn giat Height/Weight Height (Feet): 5 Height (Inches): 6.00 Weight (Pounds): 181 Weight (Ounces): 0.0 Precautions Precautions/Isolations: Standard Precautions Weight Bear Status Right Lower Extremity: Right Weight Bearing/Tolerated Left Lower Extremity: Left Full Weight Bearing Referral Physician: Leighann Reason for Referral: Evaluation/Treatment Medical History Pertinent Medical History: OA Additional Medical History Left TKR; anxiety, depression Current History Pt admitted for elective right TKR Reviewed History: Yes Social History Home: Single Level Current Living Status: Alone (with good family support) Entry Into Home: Stairs With Railing Prior/Core FIM Prior Level of Function Therapy Code Descriptions/Definitions Functional [place] Measure: 0=Not Assessed/NA 4=Minimal Assistance 1=Total Assistance 5=Supervision or Setup 2=Maximal Assistance 6=Modified [place] 3=Moderate Assistance 7=Complete [place] Therapy Quality Codes: 6 Independent with activity with or without an assistive device 5 Patient requires set up or clean up by helper. Patient completes activity by themselves 4 Supervision or touching assist (CGA). [place] provide cues , steadying assist 3 The helper provides less than half the effort to complete the activity 2 The helper provides more than half the effort to complete the activity 1 Dependent. The helper does all the effort to complete an activity 7 Patient refused to complete or attempt activity 9 The patient did not perform the activity before the current illness or injury 88 Not attempted due to Medical conditions or safety concerns Functional Abilities and Goals: Independent: Patient completed the activities by him/herself, with or without an assistive device, with no assistance from a helper. Needed Some Help: Patient needed partial assistance from another person to complete activities. Dependent: A helper completed the activities for the patient. Unknown: Not Applicable: Bed Mobility: 7 Transfers (B,C,W/C) (FIM): 7 Gait: 7 Indoor Mobility (Ambulation): Independent Indep at PLOF. PT Evaluation-Current Subjective Wants to get up to the bathroom. Reports her pain is managed at this time. Pt/Family Goals Home as soon as possible. Reports she only stayed one night last surgery. Objective Patient Orientation: Person, Place, Time, Situation Problem Solving: Good ROM/Strength ROM Lower Extremities Left LE WFL; knee ROM right is 0-90 degrees AAROM Strength Lower Extremities functional Integumentary/Posture Integumentary intact Bowel Incontinence: No Bladder Incontinence: No Posture normal and symmetrical Neuromuscular (Tone, Coordination, Reflexes) intact and functional Sensory Vision: Functional Hearing: Functional Hand Dominance: Right Sensation Right Lower Extremit: Intact Sensation Left Lower Extremity: Intact Transfers Therapy Code Descriptions/Definitions Functional [place] Measure: 0=Not Assessed/NA 4=Minimal Assistance 1=Total Assistance 5=Supervision or Setup 2=Maximal Assistance 6=Modified [place] 3=Moderate Assistance 7=Complete [place] Transfers (B, C, W/C) (FIM): 5 Supine to/from Sit: 5 Sit to/from Stand: 5 (toilet transfer with SBA as well) Gait Mode of Locomotion: Walk Anticipated Mode of Locomotion: Walk Distance (FIM): 1=up to 49 ft Distance: 30 ft x 2 Gait Assistive Device: FWW Comments/Gait Description Does not bear full weight on right LE and tends to walk on her toes, but due to recent surgery, this is not of concern at this time. Balance Sitting Static: Normal Sitting Dynamic: Normal Standing Static: Normal Standing Dynamic: Normal Treatment Applied CPM 0-50 degrees; pt up out of bed and toileted. Assessment/Needs Post right TKR. Mobilizing well. Will benefit from skilled PT to address functional transfers and mobiltiy to allow her to return home as soon as possible. Rehab Potential: Good PT Sock Lining Examiner Goals Nursing Home Goals PT Nursing Home Goals Time Frame: Dec 19, 2018 Transfers (B,C,W/C) (FIM): 6 Gait (FIM): 6 Gait distance (FIM): 3=150 ft Gait Assistive Device: FWW Stairs (FIM): 5 PT Plan Problem List Problem List: Activity Tolerance, Functional Strength, Safety, Balance, Gait, Transfer, Bed Mobility, ROM Treatment/Plan Treatment Plan: Continue Plan of Care Treatment Plan: Bed Mobility, Education, Functional Activity Jasmeet, Functional Strength, Gait, Safety, Therapeutic Exercise, Transfers Treatment Duration: Dec 19, 2018 Frequency: 11 times per week Estimated Hrs Per Day: 1 hour per day Patient and/or Family Agrees t: Yes Safety Risks/Education Patient Education: Transfer Techniques, Safety Issues Teaching Recipient: Patient Teaching Methods: Demonstration, Discussion Response to Teaching: Reinforcement Needed Discharge Recommendations Therapy D/C Recommendations: Physical Therapy Home Care Time/GCodes Time In: 1115 Time Out: 1140 Total Billed Treatment Time: 25 Total Billed Treatment visit EVM 25 CPM, ANNETTE Mccrary PT Dec 16, 2018 11:52
[2018-12-16] MEDS: CEFUROXIME INJECTION 750 MG in WATER (STERILE) FOR INJECTION 10 ML IV SCH ×2 (15:06→23:09)
--- NOTE | 2018-12-16 15:26 | Physical Therapy Daily Note ---
PT Daily Note-Current Subjective Pt laying Supine in bed upon arrival. Pt agrees to PT. Pt reports needing to use restroom. Pain Numeric Pain Scale: 3 Location: Right, Incisional Location Body Site: Knee Pain Description: Ache, Tightness Mental Status Patient Orientation: Person, Place, Time, Situation Attachments: Polar Pack, Other-See Comments (CPM for R knee) Transfers Therapy Code Descriptions/Definitions Functional [place] Measure: 0=Not Assessed/NA 4=Minimal Assistance 1=Total Assistance 5=Supervision or Setup 2=Maximal Assistance 6=Modified [place] 3=Moderate Assistance 7=Complete [place] Therapy Quality Codes: 6 Independent with activity with or without an assistive device 5 Patient requires set up or clean up by helper. Patient completes activity by themselves 4 Supervision or touching assist (CGA). [place] provide cues , steadying assist 3 The helper provides less than half the effort to complete the activity 2 The helper provides more than half the effort to complete the activity 1 Dependent. The helper does all the effort to complete an activity 7 Patient refused to complete or attempt activity 9 The patient did not perform the activity before the current illness or injury 88 Not attempted due to Medical conditions or safety concerns Scootin Rollin Supine to/from Sit: 5 Sit to/from Stand: 5 Weight Bearing Right Lower Extremity: Right Weight Bearing/Tolerated Left Lower Extremity: Left Full Weight Bearing Gait Training Distance (FIM): 1=up to 49 ft Distance: 20' Gait Level of Assist: 5 Exercises Supine Ex: Ankle pumps, Quad Set, Glut sets, Heel Slides, Straight leg raise, Hip abd/add Supine Reps: 15 Treatments Pt transfers from bed to standing at SBA. Pt uses restroom then returns to EOB. Pt transfers back to bed. COMBAT SYSTEMS OPERATOR runs through Supine Ex as reminder for pt. COMBAT SYSTEMS OPERATOR refills polar pack and reapplies at end of tx. Pt has all needs met. Assessment Current Status: Good Progress Pt is progressing very nicely and is motivated to go home on Friday (12/18). PT Stock Chaser Goals Fdc Goals PT Fdc Goals Time Frame: Dec 19, 2018 Transfers (B,C,W/C) (FIM): 6 Gait (FIM): 6 Gait distance (FIM): 3=150 ft Gait Assistive Device: FWW Stairs (FIM): 5 PT Plan Problem List Problem List: Activity Tolerance Treatment/Plan Treatment Plan: Continue Plan of Care Treatment Plan: Bed Mobility, Education, Functional Activity Jasmeet, Functional Strength, Gait, Safety, Therapeutic Exercise, Transfers Treatment Duration: Dec 19, 2018 Frequency: 11 times per week Estimated Hrs Per Day: 1 hour per day Patient and/or Family Agrees t: Yes Safety Risks/Education Patient Education: Gait Training, Transfer Techniques, Correct Positioning, Safety Issues Teaching Recipient: Patient Teaching Methods: Discussion Response to Teaching: Verbalize Understanding Time/GCodes Time In: 1430 Time Out: 1500 Total Billed Treatment Time: 30 Total Billed Treatment 1, FA (20m) & EX (10m) G Codes Necessary: ANAYELI Lara COMBAT SYSTEMS OPERATOR Dec 16, 2018 15:26
[2018-12-16] MEDS ORDERED: FAMOTIDINE 20 MG (PEPCID) TABLET ONE (19:14)
[2018-12-16] MEDS: ATORVASTATIN 40 MG (LIPITOR) TABLET PO SCH (20:04)
[2018-12-16] MEDS: QUEtiapine 100 MG (SEROquel) TAB IMMEDIATE RELEASE PO SCH (20:04)
[2018-12-16] MEDS: ALPRAZolam 0.5 MG (XANAX) TAB PO PRN (22:16)
[2018-12-17] MEDS: NS IV 1000 ML 1,000 ML IV SCH ×2 (00:13→08:35)
[2018-12-17 03:45] VITALS: BP 118/65
[2018-12-17] MEDS: oxyCODONE/APAP 5/325MG (PERCOCET 5) TABLET PO PRN ×4 (05:43→21:45)
[2018-12-17] MEDS: MULTIVIT W/MINERALS TAB (THERAGRAN M) PO SCH (05:43)
[2018-12-17 05:59] LABS: HEMOGLOBIN 10.6 G/DL (11.5-16.0)
--- NOTE | 2018-12-17 07:37 | Progress Note-Standard ---
Standard Progress Note Progress Notes/Assess & Plan Date Seen by a Provider: Dec 17, 2018 Time Seen by a Provider: 07:36 Progress/Assessment & Plan post op check no complaints RLE--Intact DF and PF of toes and ankle. intact sensation throughout. 2 plus DP pulse with brisk cap refill Radiographs--HW well postioned without fracture s/p RTKA mobilize as able Final Diagnosis no complaints Vital Signs Date Time Temp Pulse Resp B/P (MAP) Pulse Ox O2 Delivery O2 Flow Rate FiO2 12/17/18 05:43 18 12/17/18 03:45 96.6 97 18 118/65 (82) 98 Room Air 12/16/18 23:32 96.8 105 18 130/84 (99) 96 Room Air 12/16/18 20:31 95 Room Air 12/16/18 19:40 97.1 98 18 126/75 (92) 95 Room Air 12/16/18 16:00 97.2 100 18 126/83 (97) 96 Room Air 12/16/18 13:00 97.8 96 18 186/81 (116) 96 Room Air 12/16/18 12:00 97.8 96 18 139/86 (103) 96 Room Air 12/16/18 11:32 16 12/16/18 10:40 96.4 100 20 151/79 (103) 94 Room Air 12/16/18 10:40 96.1 100 20 154/79 (104) 94 Room Air 12/16/18 10:21 98.1 78 16 137/82 96 Room Air 12/16/18 07:38 96 Room Air I & O 12/17/18 07:00 Intake Total 2785 ml Balance 2785 ml Laboratory Tests Test 12/17/18 05:40 Range/Units Hemoglobin 10.6 L 11.5-16.0 G/DL Hematocrit 32 L 35-52 % RLE--dressing intact. NVI distally. No calf tenderness s/p RTKA doing well PT/OT RASHID LUNDY MD Dec 17, 2018 07:37
[2018-12-17 08:00] VITALS: BP 137/78
[2018-12-17] MEDS: ENOXAPARIN 30 MG/0.3 ML (LOVENOX) SYR SC SCH ×2 (08:36→20:06)
[2018-12-17] MEDS: SERTRALINE 50 MG (ZOLOFT) TABLET PO SCH (08:36)
[2018-12-17] MEDS: SENNA W/DOCUSATE (SENOKOT S) TABLET PO SCH ×2 (08:40→20:06)
--- NOTE | 2018-12-17 09:41 | Physical Therapy Daily Note ---
PT Daily Note-Current Subjective Pt in bed and agrees to PT. Reports she has been up in her room and using restroom. Pain Numeric Pain Scale: 3 Location: Right Location Body Site: Knee Mental Status Patient Orientation: Person, Place, Situation, Normal For Age Attachments: SCD's, Polar Pack, IV Transfers Therapy Code Descriptions/Definitions Functional [place] Measure: 0=Not Assessed/NA 4=Minimal Assistance 1=Total Assistance 5=Supervision or Setup 2=Maximal Assistance 6=Modified [place] 3=Moderate Assistance 7=Complete [place] Therapy Quality Codes: 6 Independent with activity with or without an assistive device 5 Patient requires set up or clean up by helper. Patient completes activity by themselves 4 Supervision or touching assist (CGA). [place] provide cues , steadying assist 3 The helper provides less than half the effort to complete the activity 2 The helper provides more than half the effort to complete the activity 1 Dependent. The helper does all the effort to complete an activity 7 Patient refused to complete or attempt activity 9 The patient did not perform the activity before the current illness or injury 88 Not attempted due to Medical conditions or safety concerns Transfers (B, C, W/C) (FIM): 6 Scootin Supine to/from Sit: 7 Sit to/from Stand: 6 Weight Bearing Right Lower Extremity: Right Weight Bearing/Tolerated Left Lower Extremity: Left Full Weight Bearing Gait Training Gait (FIM): 6 Distance (FIM): 3=150 ft Distance: 600' Gait Level of Assist: 6 Gait Persons Needed: 1 Gait Assistive Device: FWW Pt using reciprocal step pattern and has antalgic gait. Exercises Supine Ex: Ankle pumps, Quad Set, Heel Slides, Short Arc Quads, Straight leg raise Supine Reps: 10 Assessment Current Status: Good Progress Pt is able to perform bed mobility indep and is able to transfer to FWW from EOB or toilet. Pt is indep with bathroom skills. Pt able to amb with FWW 600'. Pt is now in recliner with polar pack and all needs met. PT Oracle Applications Analyst Goals Assisted Goals PT Oracle Applications Analyst Goals Time Frame: Dec 19, 2018 Transfers (B,C,W/C) (FIM): 6 Gait (FIM): 6 Gait distance (FIM): 3=150 ft Gait Assistive Device: FWW Stairs (FIM): 5 PT Plan Problem List Problem List: Activity Tolerance, Functional Strength, Safety, Balance, Gait, Transfer, ROM Treatment/Plan Treatment Plan: Continue Plan of Care Treatment Plan: Bed Mobility, Education, Functional Activity Jasmeet, Functional Strength, Gait, Safety, Therapeutic Exercise, Transfers Treatment Duration: Dec 19, 2018 Frequency: 11 times per week Estimated Hrs Per Day: 1 hour per day Patient and/or Family Agrees t: Yes Time/GCodes Time In: 846 Time Out: 913 Total Billed Treatment Time: 27 Total Billed Treatment 1 visit GT 15 min EX 12 min ANTONIO LENNON PT Dec 17, 2018 09:41
--- NOTE | 2018-12-17 09:45 | NUR ---
PERCOCET PO PER PT REQUEST FOR PAIN.
--- NOTE | 2018-12-17 10:05 | Anesthesia-General Post-Op ---
General Patient Condition Mental Status/LOC: Same as Preop Cardiovascular: Satisfactory Nausea/Vomiting: Absent Respiratory: Satisfactory Pain: Controlled Complications: Absent Post Op Complications Complications None Follow Up Care/Instructions Patient Instructions None needed. Anesthesia/Patient Condition Patient Condition Patient is doing well, no complaints, stable vital signs, no apparent adverse anesthesia problems. No complications reported per nursing. PRITI NICHOLS CRNA Dec 17, 2018 10:05
--- NOTE | 2018-12-17 10:06 | Anesthesia-Regional Post-Op ---
Regional Patient Condition Mental Status: Alert, Oriented x3 Circulation: Same as Pre-Op Headache: Absent Sensation: Full Recovery Motor Block: Absent Post Op Complications Complications None Follow Up Care/Instructions Patient Instructions None needed. Anesthesia/Patient Condition Patient is doing well, no complaints, stable vital signs, no apparent adverse anesthesia problems. No complications reported per nursing. PRITI NICHOLS CRNA Dec 17, 2018 10:06
[2018-12-17 12:00] VITALS: BP 128/76
--- NOTE | 2018-12-17 12:56 | Physical Therapy Daily Note ---
PT Daily Note-Current Subjective Pt is in bed with nurse in room and agrees to PT. Only c/o swelling and pain in the back of her knee. Pain Numeric Pain Scale: 5-Moderate Pain Location: Right Location Body Site: Knee Mental Status Patient Orientation: Person, Place, Situation, Normal For Age Attachments: IV Transfers Therapy Code Descriptions/Definitions Functional [place] Measure: 0=Not Assessed/NA 4=Minimal Assistance 1=Total Assistance 5=Supervision or Setup 2=Maximal Assistance 6=Modified [place] 3=Moderate Assistance 7=Complete [place] Therapy Quality Codes: 6 Independent with activity with or without an assistive device 5 Patient requires set up or clean up by helper. Patient completes activity by themselves 4 Supervision or touching assist (CGA). [place] provide cues , steadying assist 3 The helper provides less than half the effort to complete the activity 2 The helper provides more than half the effort to complete the activity 1 Dependent. The helper does all the effort to complete an activity 7 Patient refused to complete or attempt activity 9 The patient did not perform the activity before the current illness or injury 88 Not attempted due to Medical conditions or safety concerns Transfers (B, C, W/C) (FIM): 6 Scootin Rollin Supine to/from Sit: 7 Sit to/from Stand: 6 Weight Bearing Right Lower Extremity: Right Weight Bearing/Tolerated Left Lower Extremity: Left Full Weight Bearing Gait Training Gait (FIM): 6 Distance (FIM): 3=150 ft Distance: 600' Gait Level of Assist: 6 Gait Persons Needed: 1 Gait Assistive Device: FWW Pt uses reciprocal pattern for steps and antalgic gait pattern. Assessment Current Status: Good Progress Pt requested that she is able to take a nap after she walks. Pt is able to perform transfers indep. Pt amb with FWW 600'. Pt returned to room and is bed. CPM is set at 60 degrees flex and -5 ext. Pt has all needs met. PT Mcfp Goals Patch Sander Goals PT Mcfp Goals Time Frame: Dec 19, 2018 Transfers (B,C,W/C) (FIM): 6 Gait (FIM): 6 Gait distance (FIM): 3=150 ft Gait Assistive Device: FWW Stairs (FIM): 5 PT Plan Problem List Problem List: Activity Tolerance, Functional Strength, Safety, Balance, Gait, ROM Treatment/Plan Treatment Plan: Continue Plan of Care Treatment Plan: Bed Mobility, Education, Functional Activity Jasmeet, Functional Strength, Gait, Safety, Therapeutic Exercise, Transfers Treatment Duration: Dec 19, 2018 Frequency: 11 times per week Estimated Hrs Per Day: 1 hour per day Patient and/or Family Agrees t: Yes Time/GCodes Time In: 1238 Time Out: 1248 Total Billed Treatment Time: 10 Total Billed Treatment 1 visit GT 10 min ANTONIO LENNON PT Dec 17, 2018 12:56
--- NOTE | 2018-12-17 13:12 | NUR ---
CM/SS, respond to referral, anticipated discharge tomorrow/Friday. HHC: Coordinated with patient preferred agency, [facility], for PT services. DME: Patient has FWW from a previous knee replacement, her son is looking for a shower chair at [employer]. Patient understands that item would not be covered under her insurance. Patient is upbeat and agrees with discharge plan, she identifies no other needs.
--- NOTE | 2018-12-17 14:09 | Occ Therapy Progress Note ---
Therapy Progress Note OT order received, chart reviewed. Pt. on CPM when OT entered room. Pt. alert and oriented. OT explained purpose of treatment and therapy. Pt. states that she is doing well. States that she has not showered, but will do so when she transfers home. States that she is not worried about doing this in the hospital. Pt. also states that she will have a lot of help at home, and is not concerned. OT explains adaptive equipment to her, in the case that she should need it. Pt. verbalizes understanding. All other needs met. Pt.is encouraged to have OT come back to room in the case that she has any concerns or issues. Verbalizes understanding. No OT warranted at this time. 1, visit 1337 KIRA MATOS OT Dec 17, 2018 14:09
--- NOTE | 2018-12-17 15:30 | NUR ---
PERCOCET PO FOR C/O KNEE PAIN.
[2018-12-17 16:13] VITALS: BP 145/83
[2018-12-17] MEDS: ALPRAZolam 0.5 MG (XANAX) TAB PO PRN (17:44)
--- NOTE | 2018-12-17 17:48 | NUR ---
XANAX 0.5MG PO FOR RESTLESSNESS.
[2018-12-17] MEDS: ATORVASTATIN 40 MG (LIPITOR) TABLET PO SCH ×2 (20:06→20:07)
[2018-12-17] MEDS: QUEtiapine 100 MG (SEROquel) TAB IMMEDIATE RELEASE PO SCH (20:06)
[2018-12-17 20:27] VITALS: BP 138/82
[2018-12-17 23:55] VITALS: BP 121/73
[2018-12-18] MEDS: NS IV 1000 ML 1,000 ML IV SCH (01:20)
[2018-12-18] MEDS: oxyCODONE/APAP 5/325MG (PERCOCET 5) TABLET PO PRN ×3 (03:50→11:12)
[2018-12-18 04:03] VITALS: BP 124/77
--- NOTE | 2018-12-18 04:35 | DISCHARGE SUMMARY ---
DATE OF SERVICE: DIAGNOSES: 1. Right knee primary osteoarthritis. 2. Anxiety disorders. 3. Depression. 4. History of myocardial infarction. PROCEDURE: Right total knee arthroplasty. SUMMARY: The patient is a 58-year-old female who was admitted the day of right total knee arthroplasty, which she underwent without complications. Postoperatively, she did well. At the time of discharge, she was tolerating her diet well and tolerating an oral pain medication. Her wound was clean and dry. She had no calf tenderness. Negative Homans sign. CONDITION AT DISCHARGE: Good. DISCHARGE DIET: Regular. DISCHARGE INSTRUCTIONS: Followup is in three weeks. Home physical therapy has been arranged. The patient can weightbear as tolerated with assistive devices. Job ID: [id number] DocumentID: [id number] Dictated Date: 12/17/2018 19:58:52 Professor Of Law Date: 12/18/2018 04:34:52 Dictated By: RASHID LUNDY MD
[2018-12-18] MEDS: ALPRAZolam 0.5 MG (XANAX) TAB PO PRN (05:27)
[2018-12-18 05:53] LABS: HEMOGLOBIN 9.7 G/DL (11.5-16.0)
[2018-12-18] MEDS: MULTIVIT W/MINERALS TAB (THERAGRAN M) PO SCH (06:12)
--- NOTE | 2018-12-18 07:00 | NUR ---
DR LUNDY HERE, DRESSING CHANGED TO RIGHT KNEE
--- NOTE | 2018-12-18 07:04 | Progress Note-Standard ---
Standard Progress Note Progress Notes/Assess & Plan Date Seen by a Provider: Dec 18, 2018 Time Seen by a Provider: 07:03 Progress/Assessment & Plan post op check no complaints RLE--Intact DF and PF of toes and ankle. intact sensation throughout. 2 plus DP pulse with brisk cap refill Radiographs--HW well postioned without fracture s/p RTKA mobilize as able Final Diagnosis no complaints Vital Signs Date Time Temp Pulse Resp B/P (MAP) Pulse Ox O2 Delivery O2 Flow Rate FiO2 12/18/18 06:00 18 12/18/18 04:03 97.3 89 18 124/77 (93) 95 Room Air 12/17/18 23:55 97.9 94 18 121/73 (89) 94 Room Air 12/17/18 22:00 18 12/17/18 20:27 96.0 82 18 138/82 (100) 99 Room Air 12/17/18 20:19 Room Air 12/17/18 16:13 96.2 81 19 145/83 (103) 97 Room Air 12/17/18 12:00 97.7 88 18 128/76 (93) 100 Room Air 12/17/18 09:00 Room Air 12/17/18 08:00 98.4 98 18 137/78 (97) 98 Room Air I & O 12/18/18 07:00 Intake Total 2770 ml Balance 2770 ml Laboratory Tests Test 12/18/18 05:40 Range/Units Hemoglobin 9.7 L 11.5-16.0 G/DL Hematocrit 30 L 35-52 % RLE incision clean and dry.no calf tenderness Neg Simon's s/p RTKA doing well DC home today RASHID LUNDY MD Dec 18, 2018 07:04
[2018-12-18] MEDS: SENNA W/DOCUSATE (SENOKOT S) TABLET PO SCH (07:46)
[2018-12-18] MEDS: SERTRALINE 50 MG (ZOLOFT) TABLET PO SCH (07:46)
[2018-12-18] MEDS: ENOXAPARIN 30 MG/0.3 ML (LOVENOX) SYR SC SCH (07:48)
[2018-12-18 08:00] VITALS: BP 136/77
--- NOTE | 2018-12-18 09:04 | Physical Therapy Daily Note ---
PT Daily Note-Current Subjective Pt was in bed and agreed to PT. Pt reports that Dr reported that she see PT this morning and then she is allowed to go home. Pain Numeric Pain Scale: 5-Moderate Pain Location: Right Location Body Site: Knee Mental Status Patient Orientation: Person, Place, Situation, Normal For Age Attachments: IV Transfers Therapy Code Descriptions/Definitions Functional [place] Measure: 0=Not Assessed/NA 4=Minimal Assistance 1=Total Assistance 5=Supervision or Setup 2=Maximal Assistance 6=Modified [place] 3=Moderate Assistance 7=Complete [place] Therapy Quality Codes: 6 Independent with activity with or without an assistive device 5 Patient requires set up or clean up by helper. Patient completes activity by themselves 4 Supervision or touching assist (CGA). [place] provide cues , steadying assist 3 The helper provides less than half the effort to complete the activity 2 The helper provides more than half the effort to complete the activity 1 Dependent. The helper does all the effort to complete an activity 7 Patient refused to complete or attempt activity 9 The patient did not perform the activity before the current illness or injury 88 Not attempted due to Medical conditions or safety concerns Transfers (B, C, W/C) (FIM): 6 Scootin Rollin Supine to/from Sit: 7 Sit to/from Stand: 6 Weight Bearing Right Lower Extremity: Right Weight Bearing/Tolerated Left Lower Extremity: Left Full Weight Bearing Gait Training Gait (FIM): 6 Distance (FIM): 3=150 ft Distance: 600' Gait Level of Assist: 6 Gait Persons Needed: 1 Gait Assistive Device: FWW Pt amb with a step to pattern today due to increased pain. Exercises Supine Ex: Ankle pumps, Quad Set, Heel Slides, Short Arc Quads, Straight leg raise Supine Reps: 10 Assessment Current Status: Good Progress Pt performs all transfers indep. Pt is able to amb with FWW and was slower gait speed today due to increased pain. Pt able to perform supine LE ex in bed. Pt refused CPM machine so she can rest before she leaves. Pt is in bed with all needs met. PT Refrigeration Specialist Goals Shelter Goals PT Shelter Goals Time Frame: Dec 19, 2018 Transfers (B,C,W/C) (FIM): 6 Gait (FIM): 6 Gait distance (FIM): 3=150 ft Gait Assistive Device: FWW Stairs (FIM): 5 PT Plan Problem List Problem List: Activity Tolerance, Functional Strength, Safety, Gait, Transfer, ROM Treatment/Plan Treatment Plan: Continue Plan of Care, Discontinue PT Treatment Plan: Bed Mobility, Education, Functional Activity Jasmeet, Functional Strength, Gait, Safety, Therapeutic Exercise, Transfers Treatment Duration: Dec 19, 2018 Frequency: 11 times per week Estimated Hrs Per Day: 1 hour per day Patient and/or Family Agrees t: Yes Time/GCodes Time In: 805 Time Out: 817 Total Billed Treatment Time: 12 Total Billed Treatment 1 visit FA 12 min ANTONIO LENNON PT Dec 18, 2018 09:04
--- NOTE | 2018-12-18 10:00 | NUR ---
ON CPM MACHINE, FIONA WELL
--- NOTE | 2018-12-18 11:00 | NUR ---
IV DC, SITE WITHOUT REDNESS OR SWELLING, DRESSING INTACT TO RIGHT KNEE, SMALL AMOUNT BLOOD ON DRESSING, MORPHINE CADD PUMP DC, 33ML WASTED, WITNESSED BY JULIET KHAN
--- NOTE | 2018-12-18 11:28 | NUR ---
GAB MUNGUIA demonstrates understanding of discharge instructions and accurately returns instructions upon questioning. Copy of Post-Discharge Instructions and Medication Discharge Instructions given to PATIENT. GAB MUNGUIA is able to manage continuing needs after discharge. Patients belongings returned to PATIENT. Skin dry and intact; no breakdown noted. Patient discharged from [facility] on 12/18/18 at 1128. GAB MUNGUIA left floor via W/C, accompanied by STAFF AND SON. NIKKIE ICE PACK, IS AND MEHDI CARRINGTON SENT HOME WITH PATIENT, DISCHARGE INSTRUCTIONS GIVEN, VERBALIZED UNDERSTANDING OF DC, ORDERS, PAIN MANAGEMENT AND FOLLOW UP APPOINTMENT.
[2018-12-18 11:29] VITALS: BP 136/77
== END 2018-12-18 11:28 | disposition home health service (06) | DRG 470 ==
LOC: 4TH 05:46 → SURG 05:47 → 4TH 10:00
PROVIDERS: ADMIT Orthopaedic Surgery; ATTEND Orthopaedic Surgery
PROC: 0SRC0J9 Replacement of Right Knee Joint with Synthetic Substitute, Cemented, Open Approach (ICD-10-PCS; principal; 2018-12-16 07:32)
DX: M17.11 Unilateral primary osteoarthritis, right knee (principal); I25.2 Old myocardial infarction; F17.210 Nicotine dependence, cigarettes, uncomplicated; F41.9 Anxiety disorder, unspecified; F32.9 Major depressive disorder, single episode, unspecified; K21.9 Gastro-esophageal reflux disease without esophagitis; E78.2 Mixed hyperlipidemia; Z96.652 Presence of left artificial knee joint
CPT/HCPCS: 36415; 73560; 85014; 85018; 86850; 86900; 86901; 94664